=== PATIENT | female | born 1965 | race African-American/Black ===

== ENCOUNTER → 2016-12-18 | Outpatient (CLI) | payer BC ==
[~2016-12-18] MED LIST: ALBU18002 INH; ALBUAER INH; ALPR-411 PO; ASPI81TA28 PO; ASTN INH; ATOR-26 PO; CARV3.122 PO; CLOP1TAB15 PO; CLR10 PO; DOXY100C2 PO; FLNIN/ NAE; FLUT1INH7 INH; IPRASOL4 NEB; LPT/40 PO; MONT1TAB3 PO; NTRGSL/4 UT; PANT20TA PO; PLMINS NEB; PRED10TA PO; PRED20TA PO; PRED50TA PO; PROAIR INH; RANI150T2 PO; SPRIN/30 INH; SYMIN160 INH
[2016-12-18 10:33] LABS: MEAN CELL VOLUME 90.1 fL (80-100); MEAN CORPUSCULAR HEMOGLOBIN 29.3 pg (25-34); MEAN CORPUSCULAR HGB CONC 32.6 g/dl (32-36); MEAN PLATELET VOLUME 10.5 fL (7.4-10.4); PLATELET COUNT 268 K/uL (130-400); RED BLOOD COUNT 4.33 M/uL (4.2-5.4); WHITE BLOOD COUNT 4.81 K/uL (4.8-10.8)
[2016-12-18 10:40] LABS: ALT/SGPT 29 U/L (12-78); AST/SGOT 12 U/L (15-37); BLOOD UREA NITROGEN 16 mg/dl (7-18); BUN/CREATININE RATIO 15.6 (10-20); CALCIUM 8.9 mg/dl (8.5-10.1); CARBON DIOXIDE 32 mmol/L (21-32); CHLORIDE 107 mmol/L (98-107); GLUCOSE 82 mg/dl (70-99); POTASSIUM 3.7 mmol/L (3.5-5.1); SODIUM 145 mmol/L (136-145)
[2016-12-18 10:42] LABS: ALB/GLOB RATIO 1.3 (0.9-2); ALKALINE PHOSPHATASE 53 U/L (45-117)
== END | disposition home or self-care (01) ==
LOC: C.LAB1850 09:32
PROVIDERS: ATTEND Internal Medicine Cardiovascular Disease
DX: I25.10 Atherosclerotic heart disease of native coronary artery without angina pectoris (principal)

== ENCOUNTER 2016-12-26 03:33 | Emergency (ER) | payer BC ==
[~2016-12-26] VITALS: Ht 177.8 cm; Wt 85.5 kg
[~2016-12-26 03:33] MED LIST changes: -ALBU18002 INH; -ASPI81TA28 PO; -ASTN INH; -ATOR-26 PO; -CARV3.122 PO; -CLOP1TAB15 PO; -CLR10 PO; -DOXY100C2 PO; -FLNIN/ NAE; -IPRASOL4 NEB; -MONT1TAB3 PO; -NTRGSL/4 UT; -PANT20TA PO; -PLMINS NEB; -PRED10TA PO; -PRED20TA PO; -PRED50TA PO; -PROAIR INH; -RANI150T2 PO; -SPRIN/30 INH; -SYMIN160 INH
[2016-12-26 03:36] VITALS: TEMP 36.7; Ht 177.8 cm; Wt 85.5 kg
[2016-12-26] MEDS ORDERED: ALBUT/IPRATROP 3MG/0.5MG NEB 3 ML VIAL INH ONE (04:00)
[2016-12-26 04:04] VITALS: PULSE 104; O2SAT 94
[2016-12-26] MEDS ORDERED: PRED20TA PO (04:51)
[2016-12-26 05:17] VITALS: BP 120/90; PULSE 95; O2SAT 95
--- NOTE | 2016-12-26 06:02 | EMERGENCY ROOM VISIT NOTE ---
History First contact with patient: 03:42 Chief Complaint: RESPIRATORY PROBLEMS Stated Complaint: ASTHMA Nursing Triage Summary: Patient experiencing asthma exacerbation symptoms. SOB, dry NPC, wheezing & orthopnea. Followed home rescue plan with inhalers & nebulizer treatments with no relief. 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 History of Present Illness The patient is a 51 year old female who presents to the Emergency Room with complaints of worsening asthma exacerbation symptoms over the past one day. The patient has a long-standing history of asthma and has been using her inhalers as prescribed. She states that when she woke up in the morning she felt tightness in her chest. She used her home nebulizer, and was able to have relief of her breathing difficulties. She went to work, and throughout the day had to use her nebulizer several more times. She woke up tonight coughing, and her nebulizer did not provide significant relief, prompting her to come to the department for further management. The patient has not had fever or chills. The cough is not productive. She rates her discomfort a 7/10. Review of Systems More than 10 systems were reviewed and otherwise negative with the exception of history of present illness. 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 (7) Non-STEMI (non-ST elevated myocardial infarction) (8) Uterine Leiomyoma Nos Surgical Problems: (1) History of appendectomy (2) History of heart catheterization (3) History of hemicolectomy Family History Diabetes mellitus Heart disease Hypertension Social History Smoking Status: Never Smoker Alcohol Use: none Drug Use: none Marital Status: Housing Status: lives with family Occupation Status: employed Current/Historical Medications Scheduled Aspirin (Aspirin Ec), 81 MG PO DAILY Atorvastatin (Lipitor), 40 MG PO HS Carvedilol (Coreg), 3.125 MG PO BID Clopidogrel (Plavix), 75 MG PO DAILY Fluticasone Furoate-Vilanterol (Breo Ellipta 200-25 Mcg/INH), 1 PUFF INH DAILY Montelukast Sodium (Singulair), 10 MG PO QAM Prednisone (Prednisone), 0 PO DAILY Scheduled PRN Albuterol (Proventil Hfa), 2 PUFFS INH Q4H PRN for Shortness of Breath Alprazolam (Xanax), 0.5-1 MG PO DAILY PRN for Anxiety Ipratropium-Albuterol (Duoneb), 3 ML NEB QID PRN for Asthma Symptoms Nitroglycerin (Nitrostat), 0.4 MG UT UD PRN for Chest Pain Allergies Coded Allergies: No Known Allergies (Verified , 11/12/16) Physical Exam Vital Signs Date Time Temp Pulse Resp B/P Pulse Ox O2 Delivery O2 Flow Rate FiO2 12/26/16 05:17 95 20 120/90 95 Room Air 12/26/16 04:04 104 14 94 Room Air 12/26/16 04:00 Room Air 96 12/26/16 03:36 36.7 103 22 129/89 96 Room Air Pain Rating (0-10): 0 Physical Exam VITALS: Vitals are noted on the nurse's note and reviewed by myself. Vital signs stable. GENERAL: Well-developed, well-nourished, black female, who is in no acute distress and resting comfortably. Patient is cooperative with the examination. HEAD: Normocephalic atraumatic. HEART: Regular rate and rhythm without murmurs gallops or rubs. LUNGS: Clear to auscultation bilaterally without wheezes, rales or rhonchi. No retractions or accessory muscle use. ABDOMEN: Positive normal bowel sounds x 4. Soft, nontender, without masses or organomegaly. No guarding or rebound tenderness. MUSCULOSKELETAL: No muscle atrophy, erythema, or edema noted. Full range of motion without joint tenderness in all extremities. Medical Decision & Procedures Medications Administered Medications (Trade) Dose Ordered Sig/Donaldo Route Start Time Stop Time Status Last Admin Dose Admin Prednisone (PredniSONE TAB) 60 mg NOW STAT PO 12/26/16 03:49 12/26/16 03:51 DC 12/26/16 04:19 60 MG Albuterol/ Ipratropium (Duoneb) 6 ml NOW ONCE INH 12/26/16 04:00 12/26/16 04:01 DC 12/26/16 04:04 6 ML ED Course Physical exam and history were performed. Nursing notes and EMR were reviewed. Patient appears to have asthma exacerbation symptoms for the past one day. On exam she does not appear in significant distress, and does not have significant wheezing or rhonchi. Review of EMR shows that she has had several visits to the ER lifetime for asthma. Because of this I did give her oral prednisone as well as a 30 minute DuoNeb treatment. The patient was reevaluated several times here in the department. She had significant improvement of her breathing after steroids and the DuoNeb. I discussed further options of care with the patient, and she felt stable for discharge home. I will give her a tapering dose of prednisone. She was asked to follow with her primary care physician in the next few days for recheck of her condition. She was otherwise invited back to the ER anytime and was pleased with plan of care. The chart was completed utilizing [employer] Speech Voice Recognition Software. Grammatical errors, random word insertions, pronoun errors, and incomplete sentences are an occasional consequence of this system due to software limitations, ambient noise, and hardware issues. Any formal questions or concerns about the content, text, or information contained within the body of this dictation should be directly addressed to the provider for clarification. . Medical Decision Differential diagnosis: Etiologies such as infections, reactive airway disease, pneumonia, pneumothorax , COPD, CHF, cardiac ischemia, pulmonary embolism, musculoskeletal, gastrointestinal, as well as others were entertained. Impression Primary Impression: Acute asthma exacerbation Departure Information Dispostion Home / Self-Care Condition GOOD Prescriptions Prednisone (Prednisone) 20 Mg Tab 0 PO DAILY, #18 TAB 3 DAILY FOR 3 DAYS, THEN 2 DAILY FOR 3 DAYS, THEN 1 DAILY FOR 3 DAYS. Prov: Ramesh Vines PA-C 12/26/16 Referrals Uma Ocampo M.D. (PCP) Forms HOME CARE DOCUMENTATION FORM, IMPORTANT VISIT INFORMATION Patient Instructions My [facility] Additional Instructions You were seen and evaluated today on an emergency basis only. This is not a substitute for, or an effort to provide, complete comprehensive medical care. It is not possible to recognize and treat all injuries or illnesses in a single emergency department visit. For this reason it is recommended that you followup with your primary care physician in the next few days for recheck of your condition. Take prednisone as prescribed. You are welcome to return to the emergency department anytime with new, worsening, or concerning symptoms.
[2017-06-30] MEDS ORDERED: CLOP1TAB15 PO (11:44)
[2017-06-30] MEDS ORDERED: NTRGSL/4 UT (11:44)
[2017-06-30] MEDS ORDERED: CARV3.122 PO (11:44)
[2017-06-30] MEDS ORDERED: ASPI81TA28 PO (11:44)
[2017-06-30] MEDS ORDERED: MONT1TAB3 PO (15:47)
[2017-06-30] MEDS ORDERED: IPRASOL4 NEB (16:13)
== END 2016-12-26 05:19 | disposition home or self-care (01) ==
LOC: C.EDB 03:34 → C.EDA 05:19
DX: J45.901 Unspecified asthma with (acute) exacerbation (principal); I10 Essential (primary) hypertension; E78.5 Hyperlipidemia, unspecified; E03.9 Hypothyroidism, unspecified; I25.2 Old myocardial infarction; Z85.00 Personal history of malignant neoplasm of unspecified digestive organ; Z98.890 Other specified postprocedural states; Z79.82 Long term (current) use of aspirin; Z79.899 Other long term (current) drug therapy; Z83.3 Family history of diabetes mellitus; Z82.49 Family history of ischemic heart disease and other diseases of the circulatory system

== ENCOUNTER 2017-01-17 14:33 | Emergency (ER) | payer BC ==
[~2017-01-17] VITALS: Ht 177.8 cm; Wt 85.9 kg
[~2017-01-17 14:33] MED LIST changes: +PRED20TA PO
[2017-01-17 14:37] VITALS: TEMP 36.7; Ht 177.8 cm; Wt 85.9 kg
[2017-01-17] MEDS ORDERED: METHYLPREDNISOLONE 125 MG VIAL IV STA (14:50)
[2017-01-17] MEDS ORDERED: ALBUT/IPRATROP 3MG/0.5MG NEB 3 ML VIAL INH STA (14:50)
[2017-01-17] MEDS ORDERED: PROAIR INH (14:56)
[2017-01-17 15:13] LABS: BASO % 0.3 %; BASO ABS # 0.02 K/uL (0-0.2); COMPLETE YES; EOS % 9.4 %; HEMATOCRIT 38.9 % (37-47); IG% 0.2 %; LYMPH % 38.5 %; LYMPH ABS # 2.29 K/uL (1.2-3.4); MEAN CELL VOLUME 90.3 fL (80-100); MEAN CORPUSCULAR HEMOGLOBIN 29.9 pg (25-34); MEAN CORPUSCULAR HGB CONC 33.2 g/dl (32-36); MEAN PLATELET VOLUME 10.9 fL (7.4-10.4); MONO % 6.4 %; NEUT % 45.2 %; PLATELET COUNT 230 K/uL (130-400); RED BLOOD COUNT 4.31 M/uL (4.2-5.4); WHITE BLOOD COUNT 5.95 K/uL (4.8-10.8)
--- NOTE | 2017-01-17 15:28 | DIAGNOSTIC IMAGING REPORT ---
TWO VIEW CHEST CLINICAL HISTORY: Asthma. Dyspnea. FINDINGS: PA and lateral chest radiographs are compared to study dated 09/09/2016. The cardiomediastinal silhouette is unremarkable. The lungs and pleural spaces are clear. There is no pneumothorax. The bony thorax appears intact. IMPRESSION: No active disease in the chest. Electronically signed by: Celestino Ferrara M.D. 01/17/2017 3:27 PM Dictated Date/Time: 01/17/2017 3:26 PM
[2017-01-17 15:32] LABS: BLOOD UREA NITROGEN 15 mg/dl (7-18); BUN/CREATININE RATIO 11.7 (10-20); CALCIUM 8.7 mg/dl (8.5-10.1); CARBON DIOXIDE 27 mmol/L (21-32); CHLORIDE 112 mmol/L (98-107); GLUCOSE 88 mg/dl (70-99); POTASSIUM 3.3 mmol/L (3.5-5.1); SODIUM 148 mmol/L (136-145)
[2017-01-17] MEDS ORDERED: SODIUM CHLORIDE 0.9% 1000ML 1,000 ML IV STA (15:50)
[2017-01-17] MEDS ORDERED: PRED20TA PO (15:57)
[2017-01-17 17:07] VITALS: BP 138/95; PULSE 80; O2SAT 97
--- NOTE | 2017-01-17 17:30 | EMERGENCY ROOM VISIT NOTE ---
History Report prepared by Lucio: Alexa Bautista Under the Supervision of: Dr. Joo Bolivar M.D. First contact with patient: 14:44 Chief Complaint: RESPIRATORY PROBLEMS Stated Complaint: ASTHMA Nursing Triage Summary: pt reports having asthma attack started last night has gotten worse History of Present Illness The patient is a 51 year old female who presents to the Emergency Room with complaints of persistent shortness of breath that began last evening. She currently rates her discomfort as a 3/10 in severity. The patient states that she has a history of asthma. She states that last night she was up every two hours for another breathing treatment. The patient additionally associates chest tightness secondary to her persistent shortness of breath. She states that her symptoms are very similar to her previous asthma exacerbations and are not unusual. The patient states that her last nebulizer treatment was two hours ago. She denies any history of pulmonary embolism. The patient states that the change in the weather does not help her symptoms. She denies any recent illness, fever, cough, vomiting, diarrhea, or leg pain or swelling. Source of History: patient Onset: last evening Position: other (global) Symptom Intensity: 3/10 Quality: other (shortness of breath) Timing: other (persistent) Modifying Factors (Worsening): other (change in weather) Associated Symptoms: + chest pain (tightness), No cough, No diarrhea, No fevers, No vomiting Review of Systems See HPI for pertinent positives & negatives. A total of 10 systems reviewed and were otherwise negative. 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 (7) Non-STEMI (non-ST elevated myocardial infarction) (8) Uterine Leiomyoma Nos Surgical Problems: (1) History of appendectomy (2) History of heart catheterization (3) History of hemicolectomy Family History Diabetes mellitus Heart disease Hypertension Social History Smoking Status: Never Smoker Alcohol Use: none Drug Use: none Marital Status: Housing Status: lives with family Occupation Status: employed Current/Historical Medications Scheduled Aspirin (Aspirin Ec), 81 MG PO DAILY Atorvastatin (Lipitor), 40 MG PO HS Carvedilol (Coreg), 3.125 MG PO BID Clopidogrel (Plavix), 75 MG PO DAILY Fluticasone Furoate-Vilanterol (Breo Ellipta 200-25 Mcg/INH), 1 PUFF INH DAILY Montelukast Sodium (Singulair), 10 MG PO QAM Prednisone (Prednisone), 0 PO DAILY Prednisone (Prednisone), 3 TAB PO DAILY Scheduled PRN Alprazolam (Xanax), 0.5-1 MG PO DAILY PRN for Anxiety Ipratropium-Albuterol (Duoneb), 3 ML NEB QID PRN for Asthma Symptoms Nitroglycerin (Nitrostat), 0.4 MG UT UD PRN for Chest Pain [Proair], 2 PUFF INH Q4 PRN for SOB/Wheezing Allergies Coded Allergies: No Known Allergies (Verified , 01/17/17) Physical Exam Vital Signs Date Time Temp Pulse Resp B/P Pulse Ox O2 Delivery O2 Flow Rate FiO2 01/17/17 17:07 80 16 138/95 97 Room Air 01/17/17 15:44 81 01/17/17 14:37 36.7 96 20 138/87 96 Room Air Physical Exam Constitutional: Vital signs reviewed. Eyes: Pupils are equal round reactive to light. Conjunctiva are noninjected. ENT: Pharynx is clear without erythema or exudate. Mucous membranes are moist. Neck supple without meningeal signs. Respiratory: Scattered wheezing bilaterally. Breath sounds are equal bilaterally. Poor air entry bilaterally. Cardiovascular: Regular rate and rhythm. No rubs or gallops. GI: Soft, nondistended and nontender. Bowel sounds are present. Musculoskeletal: No peripheral edema. No lower extremity tenderness. Integumentary: No cyanosis. Neurological: The patient is awake and alert. No focal deficits. Psychiatric: Normal affect. Medical Decision & Procedures ER Provider Diagnostic Interpretation: X-ray results as stated below per interpretation by me and the radiologist: TWO VIEW CHEST CLINICAL HISTORY: Asthma. Dyspnea. FINDINGS: PA and lateral chest radiographs are compared to study dated 09/09/2016. The cardiomediastinal silhouette is unremarkable. The lungs and pleural spaces are clear. There is no pneumothorax. The bony thorax appears intact. IMPRESSION: No active disease in the chest. Electronically signed by: Celestino Ferrara M.D. 01/17/2017 3:27 PM Dictated Date/Time: 01/17/2017 3:26 PM Laboratory Results 01/17/17 15:00 Red Blood Count 4.31, Mean Corpuscular Volume 90.3, Mean Corpuscular Hemoglobin 29.9, Mean Corpuscular Hemoglobin Concent 33.2, Mean Platelet Volume 10.9, Neutrophils (%) (Auto) 45.2, Lymphocytes (%) (Auto) 38.5, Monocytes (%) (Auto) 6.4, Eosinophils (%) (Auto) 9.4, Basophils (%) (Auto) 0.3, Neutrophils # (Auto) 2.69, Lymphocytes # (Auto) 2.29, Monocytes # (Auto) 0.38, Eosinophils # (Auto) 0.56, Basophils # (Auto) 0.02 01/17/17 15:00 Test 01/17/17 15:00 White Blood Count 5.95 K/uL (4.8-10.8) Red Blood Count 4.31 M/uL (4.2-5.4) Hemoglobin 12.9 g/dL (12.0-16.0) Hematocrit 38.9 % (37-47) Mean Corpuscular Volume 90.3 fL (80-100) Mean Corpuscular Hemoglobin 29.9 pg (25-34) Mean Corpuscular Hemoglobin Concent 33.2 g/dl (32-36) Platelet Count 230 K/uL (130-400) Mean Platelet Volume 10.9 fL (7.4-10.4) Neutrophils (%) (Auto) 45.2 % Lymphocytes (%) (Auto) 38.5 % Monocytes (%) (Auto) 6.4 % Eosinophils (%) (Auto) 9.4 % Basophils (%) (Auto) 0.3 % Neutrophils # (Auto) 2.69 K/uL (1.4-6.5) Lymphocytes # (Auto) 2.29 K/uL (1.2-3.4) Monocytes # (Auto) 0.38 K/uL (0.11-0.59) Eosinophils # (Auto) 0.56 K/uL (0-0.5) Basophils # (Auto) 0.02 K/uL (0-0.2) RDW Standard Deviation 49.9 fL (36.4-46.3) RDW Coefficient of Variation 15.0 % (11.5-14.5) Immature Granulocyte % (Auto) 0.2 % Immature Granulocyte # (Auto) 0.01 K/uL (0.00-0.02) Anion Gap 9.0 mmol/L (3-11) Est Creatinine Clear Calc Drug Dose 59.6 ml/min Estimated GFR () 54.2 Estimated GFR (Non- 46.8 BUN/Creatinine Ratio 11.7 (10-20) Calcium Level 8.7 mg/dl (8.5-10.1) Troponin I < 0.015 ng/ml (0-0.045) Laboratory results as reviewed by me. Medications Administered Medications (Trade) Dose Ordered Sig/Donaldo Route Start Time Stop Time Status Last Admin Dose Admin Albuterol/ Ipratropium (Duoneb) 3 ml NOW STAT INH 01/17/17 14:50 01/17/17 14:51 DC 01/17/17 15:01 3 ML Methylprednisolone Sodium Succinate 125 mg 125 mg NOW STAT IV 01/17/17 14:50 01/17/17 14:51 DC 01/17/17 15:01 125 MG Sodium Chloride (Nss 1000ml) 1,000 ml @ 999 mls/hr Q1H1M STAT IV 01/17/17 15:50 01/17/17 16:50 DC 01/17/17 15:57 999 MLS/HR ECG Indication: SOB/dyspnea Rate (beats per minute): 83 Rhythm: normal sinus Findings: no acute ischemic change, no ectopy ED Course 1445: The patient was evaluated in room C1B. A complete history and physical exam was performed. 1450: Ordered Solu-Medrol IV 125 mg IV, Duoneb 3 ml INH. 1550: I reevaluated the patient and she is feeling much better. On exam the patient has some increased wheezing, but improved air entry. I offered another duoneb treatment, but she declined. I discussed all the exam findings and I discussed the treatment plan. She verbalized complete understanding and agreement. She is ready to go home once she receives her IV fluids. Ordered Sodium Chloride 1000 ml @ 999 mls/hr IV. 1652: I reevaluated the patient she received her IV fluids and states that she continues to feel better. She is ready to go to discharge. Medical Decision This is a 51-year-old female who presents with shortness of breath. Differential diagnosis includes acute asthma exacerbation, pneumonia, pulmonary embolism, cardiac, bronchitis. I did perform a limited focused review of portions of the patient's old chart on the electronic medical record. The patient was here December 26 for an asthma exacerbation and discharged on Prednisone. I did evaluate the patient as noted above. The patient is presenting with symptoms consistent with her prior asthma exacerbations. She does complain of chest tightness which is not unusual for her. She does have some scattered wheezing with fair to poor air entry bilaterally. IV access was established. I did order and personally review the patient's 12-lead EKG and chest x-ray as described above. I did order and review the patient's blood work as noted in the electronic medical record. She does have mild hypokalemia likely from the albuterol causing an intracellular shift. She also has signs of dehydration including an elevated creatinine and sodium. I did treat patient with Solu- Medrol IV and a DuoNeb. I did reassess the patient. She states she is feeling much better. Her air entry is significantly improved. She does have some mild increased wheezing likely from the improved air Entry. She did not wish to have another nebulizer. She stated she felt better. She was given IV normal saline and I discussed her test results with her. She was discharged in good condition. She was given a prescription for prednisone. Impression Primary Impression: Acute asthma exacerbation Additional Impression: Dehydration Scribe Attestation The scribe's documentation has been prepared under my direct and personally reviewed by me in its entirety. I confirm that the note above accurately reflects all work, treatment, procedures, and medical decision making performed by me. Departure Information Dispostion Home / Self-Care Prescriptions Prednisone (Prednisone) 20 Mg Tab 3 TAB PO DAILY, #12 TAB FOR 4 DAYS Prov: Joo Bolivar M.D. 01/17/17 Referrals Uma Ocampo M.D. (PCP) Forms HOME CARE DOCUMENTATION FORM, IMPORTANT VISIT INFORMATION, WORK / SCHOOL INSTRUCTIONS Patient Instructions Asthma - [facility], Dehydration, [facility] Additional Instructions You have been examined and treated today on an emergency basis only. This is not a substitute for, or an effort to provide, complete comprehensive medical care. It is impossible to recognize and treat all injuries or illnesses in a single emergency department visit. It is therefore important that you follow up closely with your physician. Call as soon as possible for an appointment. Return for worsening symptoms or if you develop fever, vomiting, or any other concerning symptoms. Problem Qualifiers Primary Impression: Acute asthma exacerbation Asthma severity: unspecified severity Qualified Codes: J45.901 - Unspecified asthma with (acute) exacerbation
[2017-06-30] MEDS ORDERED: CARV3.122 PO (11:44)
[2017-06-30] MEDS ORDERED: ASPI81TA28 PO (11:44)
[2017-06-30] MEDS ORDERED: CLOP1TAB15 PO (11:44)
[2017-06-30] MEDS ORDERED: NTRGSL/4 UT (11:44)
[2017-06-30] MEDS ORDERED: MONT1TAB3 PO (15:47)
[2017-06-30] MEDS ORDERED: IPRASOL4 NEB (16:13)
== END 2017-01-17 17:29 | disposition home or self-care (01) ==
LOC: C.EDB 14:34 → C.EDC 17:29
DX: J45.901 Unspecified asthma with (acute) exacerbation (principal); E78.5 Hyperlipidemia, unspecified; I10 Essential (primary) hypertension; E03.9 Hypothyroidism, unspecified; Z79.82 Long term (current) use of aspirin; Z79.02 Long term (current) use of antithrombotics/antiplatelets; Z79.899 Other long term (current) drug therapy; E86.0 Dehydration

== ENCOUNTER 2017-02-23 11:14 | Emergency (ER) | payer BC ==
[~2017-02-23] VITALS: Ht 177.8 cm; Wt 86.5 kg
[~2017-02-23 11:14] MED LIST changes: -ALBUAER INH; +PROAIR INH
[2017-02-23 11:18] VITALS: TEMP 36.7; Ht 177.8 cm; Wt 86.5 kg
[2017-02-23 11:28] VITALS: O2SAT 95
[2017-02-23] MEDS ORDERED: DEXAMETHASONE SOD INJ 10 MG/ML VIAL IM ONE (11:45)
[2017-02-23] MEDS ORDERED: ALBUT/IPRATROP 3MG/0.5MG NEB 3 ML VIAL INH ONE (11:45)
--- NOTE | 2017-02-23 12:06 | DIAGNOSTIC IMAGING REPORT ---
CHEST 2 VIEWS ROUTINE CLINICAL HISTORY: ASTHMA EXACERBATION COMPARISON STUDY: Chest radiograph January 17, 2017. FINDINGS: Lung volumes are normal. There is no pneumothorax or pleural effusion. Cardiac size is normal. Mediastinal contours are normal. There is no evidence of pulmonary edema. IMPRESSION: No acute cardiopulmonary findings. Electronically signed by: Jean Carlos Kirk M.D. 02/23/2017 12:04 PM Dictated Date/Time: 02/23/2017 12:03 PM
[2017-02-23 12:07] VITALS: PULSE 98; O2SAT 97
--- NOTE | 2017-02-23 13:25 | EMERGENCY ROOM VISIT NOTE ---
History First contact with patient: 11:33 Chief Complaint: RESPIRATORY PROBLEMS Stated Complaint: ASTHMA History of Present Illness The patient is a 51 year old female who presents to the Emergency Room with complaints of an asthma exacerbation. The patient reports that she has had frequent asthma exacerbations over the past 3-4 weeks. Her symptoms worsened yesterday morning. She has been administering home nebulizer treatments without relief. She is also currently on a prednisone taper, currently taking 30 mg daily. She follows with Magalie Bolton approximately every 2-3 weeks. She has had no recent change in medications. The patient is certain that this is an asthma exacerbation, and does not want any further cardiac workup. He denies any chest pain, fevers, cough, abdominal pain or back pain. The patient reports that she also had an appointment this morning with a integration director who is wondering if her symptoms could be secondary to GERD. She was provided a prescription for omeprazole to see if that also helps with her symptoms. Review of Systems 10 system review was performed and was negative except for pertinent positives and negatives as indicated in history of present illness 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 (7) Non-STEMI (non-ST elevated myocardial infarction) (8) Uterine Leiomyoma Nos Surgical Problems: (1) History of appendectomy (2) History of heart catheterization (3) History of hemicolectomy Family History Diabetes mellitus Heart disease Hypertension Social History Smoking Status: Never Smoker Alcohol Use: none Drug Use: none Marital Status: Housing Status: lives with family Occupation Status: employed Current/Historical Medications Scheduled Aspirin (Aspirin Ec), 81 MG PO DAILY Atorvastatin (Lipitor), 40 MG PO HS Carvedilol (Coreg), 3.125 MG PO BID Clopidogrel (Plavix), 75 MG PO DAILY Fluticasone Furoate-Vilanterol (Breo Ellipta 200-25 Mcg/INH), 1 PUFF INH DAILY Montelukast Sodium (Singulair), 10 MG PO QAM Prednisone (Prednisone), 0 PO DAILY Scheduled PRN Alprazolam (Xanax), 0.5-1 MG PO DAILY PRN for Anxiety Ipratropium-Albuterol (Duoneb), 3 ML NEB QID PRN for Asthma Symptoms Nitroglycerin (Nitrostat), 0.4 MG UT UD PRN for Chest Pain [Proair], 2 PUFF INH Q4 PRN for SOB/Wheezing Allergies Coded Allergies: No Known Allergies (Verified , 02/23/17) Physical Exam Vital Signs Date Time Temp Pulse Resp B/P Pulse Ox O2 Delivery O2 Flow Rate FiO2 02/23/17 12:17 95 02/23/17 12:10 93 22 100 Nebulizer 02/23/17 12:07 98 16 97 Room Air 02/23/17 11:28 95 Room Air 02/23/17 11:27 95 Room Air 02/23/17 11:18 36.7 110 20 164/101 96 Room Air Physical Exam CONSTITUTIONAL: Healthy and well nourished. Alert and oriented X 3 with positive affect. HEENT: Normocephalic, atraumatic. Pupils equal, round and reactive. Ears and nares are clear. OROPHARYNX: No tonsillar hypertrophy or exudates. No posterior pharyngeal erythema. LYMPHATICS: No cervical chain adenopathy. NECK: Full active range of motion without discomfort. No JVD or carotid bruits. RESPIRATORY: The patient has diffuse expiratory wheezing in all phelps. No crackles, rhonchi or stridor. Patient is able to speak in complete sentences, but does appear in mild respiratory distress. CARDIOVASCULAR: Regular rate and rhythm with no murmurs, rubs or gallops. GASTROINTESTINAL: Bowel sounds present in all quadrants. Soft and nontender to palpation. MUSCULOSKELETAL: Full range of motion of all joints without discomfort. INTEGUMENTARY: No rash or other significant dermatologic conditions noted. HEMATOLOGIC: No ecchymosis or petechiae. NEUROLOGIC: No focal neurologic deficits noted. Medical Decision & Procedures ER Provider Diagnostic Interpretation: My interpretation of a two-view chest x-ray does not show any consolidations, pneumothorax or cardiomegaly. Radiologist report is as follows: CHEST 2 VIEWS ROUTINE CLINICAL HISTORY: ASTHMA EXACERBATION COMPARISON STUDY: Chest radiograph January 17, 2017. FINDINGS: Lung volumes are normal. There is no pneumothorax or pleural effusion. Cardiac size is normal. Mediastinal contours are normal. There is no evidence of pulmonary edema. IMPRESSION: No acute cardiopulmonary findings. Medications Administered Medications (Trade) Dose Ordered Sig/Donaldo Route Start Time Stop Time Status Last Admin Dose Admin Albuterol/ Ipratropium (Duoneb) 12 ml ONE ONCE INH 02/23/17 11:45 02/23/17 11:46 DC 02/23/17 12:05 12 ML Dexamethasone Sodium Phosphate (Decadron Inj) 10 mg NOW ONCE IM 02/23/17 11:45 02/23/17 11:46 DC 02/23/17 12:23 10 MG Procedure The patient received an hour-long DuoNeb treatment ED Course Patient history and physical exam were performed. Nurse's notes were reviewed. Vital signs were reviewed, showing a blood pressure 164/101. Pulse rate is 110 in triage. On my exam, pulse rate was 96. O2 saturation is 96% on room air. The patient appears in mild respiratory distress. Her pretreatment peak flow was 90. The patient received an hour-long DuoNeb treatment with a posttreatment peak flow of 250. The patient reported almost complete resolution of her wheezing and respiratory difficulty. A two-view chest x-ray was also normal. The patient felt well enough and requested discharge. The patient was encouraged to continue with her current albuterol regimen, and follow up with her PCP and integration director for further management. She was encouraged to return to the emergency department for any worsening symptoms. The patient was happy with plan of care, and voiced understanding of all discharge instructions. Medical Decision See previous section. The patient is certain that her symptoms are secondary to asthma exacerbation. She denies any chest pain, and refused any cardiac workup. Her chest x-ray today is normal. She responded nicely to IM Decadron and an hour-long DuoNeb treatment. Other differentials considered included cardiac disease, pneumonia, pneumothorax, pulmonary emboli and bronchitis. Impression Primary Impression: Acute asthma exacerbation Departure Information Referrals No Doctor, Assigned (PCP) Patient Instructions My [facility] Problem Qualifiers Primary Impression: Acute asthma exacerbation Asthma severity: moderate persistent Qualified Codes: J45.41 - Moderate persistent asthma with (acute) exacerbation
[2017-02-23 13:27] VITALS: BP 135/88; PULSE 101; O2SAT 96
[2017-06-30] MEDS ORDERED: CLOP1TAB15 PO (11:44)
[2017-06-30] MEDS ORDERED: NTRGSL/4 UT (11:44)
[2017-06-30] MEDS ORDERED: ASPI81TA28 PO (11:44)
[2017-06-30] MEDS ORDERED: CARV3.122 PO (11:44)
[2017-06-30] MEDS ORDERED: MONT1TAB3 PO (15:47)
[2017-06-30] MEDS ORDERED: IPRASOL4 NEB (16:13)
[2017-06-30] MEDS ORDERED: PANT20TA2 PO (21:16)
[2017-09-13] MEDS ORDERED: MEPO1INJ INJ (21:36)
[2017-09-13] MEDS ORDERED: FLUC200T PO (21:51)
[2017-09-13] MEDS ORDERED: PRED50TA PO (23:41)
== END 2017-02-23 13:27 | disposition home or self-care (01) ==
LOC: C.EDB 11:18 → C.EDC 13:27
DX: J45.901 Unspecified asthma with (acute) exacerbation (principal); I10 Essential (primary) hypertension; E78.5 Hyperlipidemia, unspecified; E03.9 Hypothyroidism, unspecified; I25.2 Old myocardial infarction; Z85.89 Personal history of malignant neoplasm of other organs and systems; Z86.018 Personal history of other benign neoplasm; Z98.61 Coronary angioplasty status; Z98.890 Other specified postprocedural states; Z79.82 Long term (current) use of aspirin; Z79.899 Other long term (current) drug therapy; Z83.3 Family history of diabetes mellitus; Z82.49 Family history of ischemic heart disease and other diseases of the circulatory system

== ENCOUNTER 2017-03-28 23:01 | Emergency (ER) | payer BC ==
[~2017-03-28] VITALS: Ht 177.8 cm; Wt 86.0 kg
[2017-03-28 23:05] VITALS: Ht 177.8 cm; Wt 86.0 kg
[2017-03-28] MEDS ORDERED: DEXAMETHASONE SOD INJ 10 MG/ML VIAL PO ONE (23:15)
[2017-03-28] MEDS ORDERED: ALBUT/IPRATROP 3MG/0.5MG NEB 3 ML VIAL INH ONE (23:15)
[2017-03-28 23:35] VITALS: PULSE 104; O2SAT 95; O2SAT 98
[2017-03-28] MEDS ORDERED: ACETAMINOPHEN 500 MG TAB PO STA (23:35)
[2017-03-28] MEDS ORDERED: PRED10TA PO (23:52)
[2017-03-29 00:37] VITALS: TEMP 37.2
[2017-03-29] MEDS ORDERED: DOXY100C2 PO (01:27)
[2017-03-29 01:30] VITALS: BP 101/65; PULSE 120; O2SAT 93
[2017-03-29] MEDS ORDERED: DOXYCYCLINE HYCLATE 100 MG CAP PO ONE (01:30)
[2017-03-29] MEDS ORDERED: PRED50TA PO (01:37)
--- NOTE | 2017-03-29 02:04 | EMERGENCY ROOM VISIT NOTE ---
History First contact with patient: 23:04 Chief Complaint: RESPIRATORY PROBLEMS Stated Complaint: ASTHMA ATTACK, SOB Nursing Triage Summary: Pt complains of respiratory infection for a week. Today breathing is worse. Pt has history of asthma. Pt using inhalers and nebulizers without relief. History of Present Illness The patient is a 51 year old female who presents to the Emergency Room with complaints of cough, wheezing and fever. Patient tried her inhaler with no relief of symptoms. She's been on low-dose prednisone by her counter tacker. She had a flare last month. She was on Zithromax Last month. Patient denies chest pain, neck stiffness, sore throat, abdominal pain, leg pain or swelling. Review of Systems See HPI for pertinent positives & negatives. A total of 10 systems reviewed and were otherwise negative. 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 (7) Non-STEMI (non-ST elevated myocardial infarction) (8) Uterine Leiomyoma Nos Surgical Problems: (1) History of appendectomy (2) History of heart catheterization (3) History of hemicolectomy Family History Diabetes mellitus Heart disease Hypertension Social History Smoking Status: Never Smoker Alcohol Use: none Drug Use: none Marital Status: Housing Status: lives with family Occupation Status: employed Current/Historical Medications Scheduled Aspirin (Aspirin Ec), 81 MG PO DAILY Atorvastatin (Lipitor), 40 MG PO HS Carvedilol (Coreg), 3.125 MG PO BID Clopidogrel (Plavix), 75 MG PO DAILY Doxycycline Hyclate (Vibramycin), 100 MG PO BID Fluticasone Furoate-Vilanterol (Breo Ellipta 200-25 Mcg/INH), 1 PUFF INH DAILY Montelukast Sodium (Singulair), 10 MG PO QAM Prednisone (Prednisone), 50 MG PO DAILY Prednisone Tab (Prednisone), 10 MG PO DAILY Scheduled PRN Albuterol Sulfate (Proair Respiclick), 2 PUFFS INH Q4 PRN for SOB/Wheezing Alprazolam (Xanax), 0.5-1 MG PO DAILY PRN for Anxiety Ipratropium-Albuterol (Duoneb), 3 ML NEB QID PRN for Asthma Symptoms Nitroglycerin (Nitrostat), 0.4 MG UT PRN for Chest Pain Allergies Coded Allergies: No Known Allergies (Verified , 03/28/17) Physical Exam Vital Signs Date Time Temp Pulse Resp B/P Pulse Ox O2 Delivery O2 Flow Rate FiO2 03/29/17 01:30 120 20 101/65 93 Room Air 03/29/17 00:37 37.2 121 20 113/71 97 Nebulizer 03/28/17 23:35 98 Room Air 03/28/17 23:35 104 18 95 Room Air 03/28/17 23:32 98 Room Air 03/28/17 23:30 125 03/28/17 23:05 38.0 130 20 146/76 96 Room Air Pain Rating (0-10): 0 Physical Exam PHYSICAL EXAM: Vital Signs: Reviewed Nurse's notes. Oxygen saturation was 96% on room air. GENERAL: Pleasant female with a low-grade temperature, Alert, oriented and coherent. The patient is able to speak in complete sentences. NECK : Supple, non-tender. CHEST: Symmetrical expansion. no retractions no accessory muscle use. HEART: Tachycardic Regular rate and normal heart sounds, no murmur, gallop or rub. LUNGS: Breath sounds equal but significantly diminished in intensity on both sides. Bilateral wheezes heard but no rales or pleuritic rub. SKIN: The skin was without rashes, erythema, edema, or bruising. There is no tenting of the skin. Capillary reflex less than 2 seconds. HEAD: Normocephalic atraumatic. EARS: External auditory canals clear, tympanic membranes pearly randolph without erythema or effusion bilaterally. EYES: Pupils equal round and reactive to light and accommodation. Conjunctivae without injection, sclerae without icterus. Extraocular movements intact. NOSE: Patent, turbinates without inflammation or discharge. No sinus tenderness. MOUTH: Mucous membranes moist. Pharynx without erythema or exudate. Uvula midline. Airway patent. Tongue does not deviate. ABDOMEN: Positive bowel sounds x 4. Normal tympanic percussion. Soft, nontender, without masses or organomegaly. Ramirez sign negative. No guarding or rebound tenderness. MUSCULOSKELETAL: No muscle atrophy, erythema, or edema noted. NEURO: Patient was alert and oriented to person place and time. Normal sensation to light and sharp touch. No focal neurological deficits. Medical Decision & Procedures Medications Administered Medications (Trade) Dose Ordered Sig/Donaldo Route Start Time Stop Time Status Last Admin Dose Admin Albuterol/ Ipratropium (Duoneb) 12 ml ONE ONCE INH 03/28/17 23:15 03/28/17 23:16 DC 03/28/17 23:35 12 ML Dexamethasone Sodium Phosphate (Decadron Inj) 10 mg NOW ONCE PO 03/28/17 23:15 03/28/17 23:16 DC 03/28/17 23:26 10 MG Acetaminophen (Tylenol Tab) 1,000 mg NOW STAT PO 03/28/17 23:35 03/28/17 23:36 DC 03/28/17 23:46 1,000 MG Doxycycline Hyclate (Vibramycin Cap) 100 mg ONE ONCE PO 03/29/17 01:30 03/29/17 01:31 DC 03/29/17 01:33 100 MG ED Course Prior records/ancillary studies reviewed. Triage Nursing notes reviewed. The patient's history was concerning for respiratory difficulties. Differential diagnosis: Etiologies such as infections, reactive airway disease, pneumonia, pneumothorax , COPD, CHF, cardiac ischemia, pulmonary embolism, musculoskeletal, gastrointestinal, as well as others were entertained. Physical examination: As above. ER treatment provided: Nebulizer, steroids, doxycycline On reassessment the patient felt better. Diagnostic interpretation by me: Imaging studies: Chest x-ray with no acute consolidation, pneumothorax or free air per my interpretation This appears to be consistent with asthmatic bronchitis with exacerbation. Patient was on recent antibiotics. She is febrile and wheezing. I did opt to start her on doxycycline for possible developing pneumonia. Patient felt much better to be medicated as above. She is able to speak in full sentences. She was strongly encouraged to follow-up with counter tacker next week as she's had multiple flares this past few months. She is advised to return to the ER immediately for difficulty breathing, fevers, worsening signs or symptoms or as needed. By the evaluation outlined above emergent etiologies such as CHF, cardiac ischemia, pulmonary embolism, pneumothorax, musculoskeletal, serious bacterial infections, as well as others were deemed relatively unlikely. The pt informed about the findings as listed above. All questions were answered and pleased with the treatment. Return instructions were outlined and the patient was discharged in stable condition. Outpatient prescription management: Prednisone, doxycycline Referral: The patient was referred back to their primary care physician and pulmonology for follow-up in 2 to 3 days for a recheck of the current condition. Case reviewed with my attending Medical Decision As above Impression Primary Impression: Acute asthma exacerbation Additional Impressions: Fever Asthmatic bronchitis Departure Information Dispostion Home / Self-Care Condition GOOD Prescriptions Prednisone (Prednisone) 50 Mg Tab 50 MG PO DAILY for 4 Days, #4 TAB Prov: Mitali Drew .AMELIA 03/29/17 Doxycycline Hyclate (VIBRAMYCIN) 100 Mg Cap 100 MG PO BID, #14 CAP Prov: Mitali Drew .AMELIA 03/29/17 Forms WORK / SCHOOL INSTRUCTIONS, HOME CARE DOCUMENTATION FORM, IMPORTANT VISIT INFORMATION Patient Instructions Fever - [facility], Asthma - [facility], My [facility] Additional Instructions Albuterol Inhaler: Take 2 puffs four times daily for five days, then as needed. or nebulizer Prednisone 50mg: Once daily until the prescription is finished. It is best to take this earlier in the day as some patients note occasional difficulty falling asleep when taken in the late evening. Then resume your normal prednisone dosing. Doxycycline 100mg: Take one pill twice daily for seven days for your infection. Take with food, but avoid dairy. Avoid prolonged sun exposure since this medication makes you temporarily more susceptible to sunburns. All antibiotics can cause diarrhea. If this occurs and you feel worse or it does not resolve in 1-2 days follow up with your doctor or return to the Emergency Department as this could be signs of serious underlying problems. Any medication can cause an allergic reaction, stop the pills immediately and return to the ER for rash, hives, breathing difficulties, or swelling. Albuterol Inhaler: Take 2 puffs four times daily for seven days, then as needed. Acetaminophen(Tylenol) may be used for fever or pain. Use 1000mg every six hours as needed. Avoid using more than 3000mg in a 24 hour period. AND/OR Ibuprofen(Motrin, Advil) may be used for fever or pain. Use 600mg every six hours as needed. Take with food. Avoid using more than 2400mg in a 24 hour period. Do not use 2400mg per day for more than three consecutive days without physician direction. Prolonged inappropriate use can lead to stomach upset or ulcers. Controlling your fever with Tylenol and Ibuprofen as above will make you feel better. Rest and drink plenty of fluids. Avoid strenuous activity until your symptoms resolve and your breathing returns to normal. Continue current medications. Return to the ER for chest pain, difficulty breathing, persistent fevers, vomiting, worsening of your condition, or as needed. Follow-up with family care and counter tacker in 2-3 days. Problem Qualifiers Primary Impression: Acute asthma exacerbation Asthma severity: unspecified severity Qualified Codes: J45.901 - Unspecified asthma with (acute) exacerbation Additional Impressions: Fever Fever type: unspecified Qualified Codes: R50.9 - Fever, unspecified Asthmatic bronchitis Asthma severity: unspecified severity Asthma complication type: with acute exacerbation Qualified Codes: J45.901 - Unspecified asthma with (acute) exacerbation
--- NOTE | 2017-03-29 07:36 | DIAGNOSTIC IMAGING REPORT ---
CHEST 2 VIEWS ROUTINE CLINICAL HISTORY: Cough. Fever. COMPARISON STUDY: Chest radiograph February 23, 2017. FINDINGS: Lung volumes are normal. Lungs are clear. There is no pneumothorax or pleural effusion. Cardiac size is normal. Mediastinal contours are normal. There is no evidence of pulmonary edema. IMPRESSION: No acute cardiopulmonary findings. Electronically signed by: Jean Carlos Kirk M.D. 03/29/2017 7:34 AM Dictated Date/Time: 03/29/2017 7:34 AM
[2017-06-30] MEDS ORDERED: ASPI81TA28 PO (11:44)
[2017-06-30] MEDS ORDERED: NTRGSL/4 UT (11:44)
[2017-06-30] MEDS ORDERED: CARV3.122 PO (11:44)
[2017-06-30] MEDS ORDERED: CLOP1TAB15 PO (11:44)
[2017-06-30] MEDS ORDERED: MONT1TAB3 PO (15:47)
[2017-06-30] MEDS ORDERED: IPRASOL4 NEB (16:13)
[2017-06-30] MEDS ORDERED: PANT20TA2 PO (21:16)
[2017-09-13] MEDS ORDERED: MEPO1INJ INJ (21:36)
[2017-09-13] MEDS ORDERED: FLUC200T PO (21:51)
[2017-09-13] MEDS ORDERED: PRED50TA PO (23:41)
== END 2017-03-29 01:39 | disposition home or self-care (01) ==
LOC: C.EDB 23:03 → C.EDC 03-29 01:39
DX: J45.901 Unspecified asthma with (acute) exacerbation (principal); E78.5 Hyperlipidemia, unspecified; I10 Essential (primary) hypertension; E03.9 Hypothyroidism, unspecified; I25.2 Old myocardial infarction; Z86.018 Personal history of other benign neoplasm; Z85.89 Personal history of malignant neoplasm of other organs and systems; Z79.82 Long term (current) use of aspirin; Z79.899 Other long term (current) drug therapy; Z98.890 Other specified postprocedural states; Z83.3 Family history of diabetes mellitus; Z82.49 Family history of ischemic heart disease and other diseases of the circulatory system

== ENCOUNTER → 2017-05-05 | Outpatient (CLI) | payer BC ==
[~2017-05-05] MED LIST changes: +ALBU18002 INH; +ASPI81TA28 PO; +ASTN INH; +ATOR-26 PO; +CARV3.122 PO; +CLOP1TAB15 PO; +CLR10 PO; +DOXY100C2 PO; +FLNIN/ NAE; +FLUC200T PO; +IPRASOL4 NEB; +MEPO1INJ INJ; +MONT1TAB3 PO; +NTRGSL/4 UT; +PANT20TA2 PO; +PLMINS NEB; +PRED10TA PO; +PRED50TA PO; -PROAIR INH; +RANI150T2 PO; +SPRIN/30 INH; +SYMIN160 INH
--- NOTE | 2017-05-05 14:12 | DIAGNOSTIC IMAGING REPORT ---
VIDEO SWALLOW STUDY CLINICAL HISTORY: Dysphagia. COMPARISON STUDY: No priors. Fluoroscopy time: 1.9 minutes. FINDINGS: Fluoroscopic guidance was provided to the Department of Speech Pathology in performing a video swallow study. The patient consumed barium-impregnated pudding, cracker with paste, nectar liquid, and thin barium while the swallowing mechanism was observed in real-time. No penetration or aspiration was seen with any of the sampled textures. Mild esophageal dysmotility is suggested. IMPRESSION: No penetration or aspiration was identified with any of the sampled textures. See dedicated speech pathology report for detailed findings and recommendations. Dictated: 05/05/2017 1:44 PM Transcribed: 05/05/2017 2:11 PM [email or web address] Electronically signed by: Celestino Ferrara M.D. 05/05/2017 2:26 PM Dictated Date/Time: 05/05/2017 1:44 PM
--- NOTE | 2017-05-05 15:28 | SWALLOWING EVALUATION ---
HISTORY: This 51 year-old woman, was referred for a VFSS at [facility] in order to address the feeling of food getting caught in her throat. The patient has a PMH significant for HTN, hypothyroidism, and cough. Currently the patient's diet level is regular. Patient reported having painful swallows and waking up at night resulting from asthma. She has been given a prescription for reflux medication from her GI doctor for reflux that she was not taking at the time of the evaluation. PROCEDURE: The patient was seen in the Radiology Department of [facility] for the VFSS. Cursory examination of the oral cavity revealed adequate dentition. Movement of the articulators was WNL. The patient was seated on a stool and was viewed in both the Anterior-Posterior (A-P) and Lateral planes. Volitional phonation exercises completed in the A-P plane revealed bilateral vocal fold movement and vocal intensity within functional limits. In the lateral plane, the patient was given the following boluses: 1 tsp. thin liquid barium x 2, single swallow thin liquid barium self-presented from a cup, sequential swallows of thin liquid barium self-presented from a cup, 1 tsp. nectar-thick liquid barium, single swallow nectar-thick liquid barium self-presented from a cup, sequential swallows nectar-thick liquid barium self-presented from a cup, 1 tsp. barium pudding, and 1 club cracker with barium pudding. The patient was then repositioned into the A-P plane and given 1 tsp. barium pudding. RESULTS: Oral Stage: There was adequate labial closure. Tongue control of the bolus was normal. There was timely and efficient mastication and brisk tongue movement in transporting the bolus. There was complete oral clearance and a slightly delayed swallow with the bolus head at the level of the valleculae when swallow was initiated. There was no evidence of oral dysphagia. The delayed swallow was WFL for the patient's age. Pharyngeal Stage: Soft palate elevation was complete. Laryngeal elevation, anterior hyoid excursion, and epiglottic inversion were complete. There was no contrast in the laryngeal vestibule at the height of the swallow. Pharyngeal stripping wave and contraction were complete. There was complete distension and complete duration of the pharyngoesophageal segment opening. Tongue base retraction was complete and there was complete pharyngeal clearance of the bolus. Pharyngeal stage of swallow considered to be WNL. Esophageal Stage: There was minimal esophageal clearance of the bolus, indicating esophageal dismotility. SUMMARY/RECOMMENDATIONS: This patient presents with no oral-pharyngeal dysphagia, but presents with s/s esophageal dysfunction. The following is recommended: 1. Slippery regular diet: Choose foods that are loose, moist, and slippery. Avoid foods that are dry, pasty, doughy, and thick. Use condiments as necessary to make foods slippery. 2. GERD precautions: Patient should be seated completely upright during and for 30 minutes after meals. HOB should be elevated to 30 degrees at all times, even for sleep. Take small bites and sips, alternating solids with liquids. 3. If symptoms persist, it is recommended that the patient have a barium swallow study. A summary of the results and recommendations was discussed with patient and understanding was verbalized immediately following the study. Thank you for referral of this patient. Please contact me at if any additional information is needed. Maggie Sifuentes Swing Frame Grinder Operator Clinician MEHNAZ [facility]ERELLE/APPLICATION DESIGN ENGINEER-L
== END | disposition home or self-care (01) ==
LOC: C.RAD 12:45
PROVIDERS: ATTEND Physician Assistant
DX: R13.10 Dysphagia, unspecified (principal)

== ENCOUNTER 2017-06-30 20:15 | Emergency (ER) | payer BC ==
[~2017-06-30] VITALS: Ht 177.8 cm; Wt 89.4 kg
[~2017-06-30 20:15] MED LIST changes: -ALBU18002 INH; -ASTN INH; -ATOR-26 PO; -CLR10 PO; -FLNIN/ NAE; -FLUC200T PO; -MEPO1INJ INJ; -PANT20TA2 PO; -PLMINS NEB; -PRED20TA PO; -PRED50TA PO; -RANI150T2 PO; -SPRIN/30 INH; -SYMIN160 INH
[2017-06-30 20:22] VITALS: TEMP 36.6; Ht 177.8 cm; Wt 89.4 kg
[2017-06-30] MEDS ORDERED: METHYLPREDNISOLONE 125 MG VIAL IV STA (20:27)
[2017-06-30] MEDS ORDERED: ALBUT/IPRATROP 3MG/0.5MG NEB 3 ML VIAL INH STA (20:27)
--- NOTE | 2017-06-30 20:47 | DIAGNOSTIC IMAGING REPORT ---
CHEST ONE VIEW PORTABLE CLINICAL HISTORY: sob dyspnea COMPARISON STUDY: 03/29/2017 FINDINGS: The bones soft tissues and hemidiaphragms are normal. The cardiomediastinal silhouette is normal. The lungs are clear. The pulmonary vasculature is normal. IMPRESSION: Negative chest. The above report was generated using voice recognition software. It may contain grammatical, syntax or spelling errors. Electronically signed by: Jack Álvarez M.D. 06/30/2017 8:46 PM Dictated Date/Time: 06/30/2017 8:45 PM
[2017-06-30] MEDS ORDERED: PLMINS NEB (21:16)
[2017-06-30] MEDS ORDERED: CLR10 PO (21:16)
[2017-06-30] MEDS ORDERED: ASTN INH (21:16)
[2017-06-30] MEDS ORDERED: FLNIN/ NAE (21:16)
[2017-06-30] MEDS ORDERED: PANT20TA PO (21:16)
[2017-06-30] MEDS ORDERED: SPRIN/30 INH (21:16)
[2017-06-30] MEDS ORDERED: SYMIN160 INH (21:16)
[2017-06-30 21:22] LABS: BASO % 0.4 %; BASO ABS # 0.02 K/uL (0-0.2); COMPLETE YES; EOS % 12.2 %; HEMATOCRIT 40.9 % (37-47); IG% 0.2 %; LYMPH % 34.3 %; LYMPH ABS # 1.77 K/uL (1.2-3.4); MEAN CELL VOLUME 88.9 fL (80-100); MEAN CORPUSCULAR HEMOGLOBIN 29.8 pg (25-34); MEAN CORPUSCULAR HGB CONC 33.5 g/dl (32-36); MEAN PLATELET VOLUME 10.5 fL (7.4-10.4); MONO % 10.7 %; NEUT % 42.2 %; PLATELET COUNT 235 K/uL (130-400); WHITE BLOOD COUNT 5.16 K/uL (4.8-10.8)
[2017-06-30] MEDS ORDERED: ATOR-26 PO (21:24)
[2017-06-30 21:40] LABS: ALT/SGPT 27 U/L (12-78); BLOOD UREA NITROGEN 9 mg/dl (7-18); CALCIUM 9.2 mg/dl (8.5-10.1); CARBON DIOXIDE 30 mmol/L (21-32); CHLORIDE 108 mmol/L (98-107); CREATININE 0.85 mg/dl (0.60-1.20); GLUCOSE 73 mg/dl (70-99); PARTIAL THROMBOPLASTIN RATIO 1.1; POTASSIUM 3.2 mmol/L (3.5-5.1); PROTHROMBIN TIME (PATIENT) 10.4 SECONDS (9.0-12.0); SODIUM 143 mmol/L (136-145)
[2017-06-30 21:45] LABS: ALB/GLOB RATIO 1.2 (0.9-2); ALKALINE PHOSPHATASE 50 U/L (45-117); AST/SGOT 16 U/L (15-37); CKMB/CK RATIO 0.4 (0-3.0)
[2017-06-30] MEDS ORDERED: PRED20TA PO (22:15)
--- NOTE | 2017-06-30 22:15 | EMERGENCY ROOM VISIT NOTE ---
History Report prepared by Lucio: Graham Augustine Under the Supervision of: Dr. Cristiano Guadalupe D.O. First contact with patient: 20:27 Chief Complaint: RESPIRATORY PROBLEMS Stated Complaint: ASTHMA History of Present Illness The patient is a 51 year old female who presents to the Emergency Room with complaints of a constant asthma attack starting last night. The patient states that she has had these in the past, and she is using her nebulizer every 90 - 120 minutes, and that is helping. She states that she is not currently on steroids, though she states she often is on them. She denies any recent illnesses. Source of History: patient Onset: last night Position: other (global) Quality: other (asthma attack) Timing: constant Modifying Factors (Relieving): other (nebulizer) Review of Systems See HPI for pertinent positives & negatives. A total of 10 systems reviewed and were otherwise negative. 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 (7) Non-STEMI (non-ST elevated myocardial infarction) (8) Uterine Leiomyoma Nos Surgical Problems: (1) History of appendectomy (2) History of heart catheterization (3) History of hemicolectomy Family History Diabetes mellitus Heart disease Hypertension Social History Smoking Status: Never Smoker Alcohol Use: none Drug Use: none Marital Status: Housing Status: lives with family Occupation Status: employed Current/Historical Medications Scheduled Aspirin (Aspirin Ec), 81 MG PO DAILY Atorvastatin (Lipitor), 80 MG PO DAILY Azelastine Hcl (Astelin Nasal [place]), 2 SPRAYS INH BID Budesonide (Inhalation) (Pulmicort Respules 0.5MG/2ML), 0.5 MG NEB BID Budesonide/Formoterol Fumarate (Symbicort 160/4.5 Inhaler), 2 PUFF INH Q12 Carvedilol (Coreg), 3.125 MG PO BID Clopidogrel (Plavix), 75 MG PO DAILY Fluticasone Propionate (Fluticasone Propionate), 2 SPRAYS JETT DAILY Loratadine (Claritin), 10 MG PO DAILY Montelukast Sodium (Singulair), 10 MG PO QAM Pantoprazole Sodium (Protonix), 20 MG PO BID Tiotropium [place] (Spiriva Handihaler), 1 CAP INH DAILY Scheduled PRN Albuterol Sulfate (Proair Respiclick), 2 PUFFS INH Q4 PRN for SOB/Wheezing Ipratropium-Albuterol (Duoneb), 3 ML NEB QID PRN for Asthma Symptoms Nitroglycerin (Nitrostat), 0.4 MG UT UD PRN for Chest Pain Allergies Coded Allergies: No Known Allergies (Verified , 03/28/17) Physical Exam Vital Signs Date Time Temp Pulse Resp B/P (MAP) Pulse Ox O2 Delivery O2 Flow Rate FiO2 06/30/17 20:57 99 Room Air 06/30/17 20:47 84 06/30/17 20:22 36.6 93 20 163/98 95 Room Air Physical Exam CONSTITUTIONAL/VITAL SIGNS: Reviewed / noted above. GENERAL: Non-toxic in appearance. INTEGUMENTARY: Warm, dry, and [place]. HEAD: Normocephalic. EYES: without scleral icterus or trauma. ENT/OROPHARYNX: clear and moist. LYMPHADENOPATHY/NECK: Is supple without lymphadenopathy or meningismus. RESPIRATORY: Scattered wheezing bilaterally. CARDIOVASCULAR: Regular rate and rhythm. GI/ABDOMEN: Soft and nontender. No organomegaly or pulsatile mass. No rebound or guarding. Normal bowel sounds. EXTREMITIES: Warm and well perfused. BACK: No CVA tenderness. NEUROLOGICAL: Intact without focal deficits. PSYCHIATRIC: normal affect. MUSCULOSKELETAL: Normally developed with good muscle tone. Medical Decision & Procedures ER Provider Diagnostic Interpretation: X ray results and stated below per my interpretation and radiology interpretation. CHEST ONE VIEW PORTABLE CLINICAL HISTORY: sob dyspnea COMPARISON STUDY: 03/29/2017 FINDINGS: The bones soft tissues and hemidiaphragms are normal. The cardiomediastinal silhouette is normal. The lungs are clear. The pulmonary vasculature is normal. IMPRESSION: Negative chest. The above report was generated using voice recognition software. It may contain grammatical, syntax or spelling errors. Electronically signed by: Jack Álvarez M.D. 06/30/2017 8:46 PM Dictated Date/Time: 06/30/2017 8:45 PM Laboratory Results 06/30/17 21:13 Red Blood Count 4.60, Mean Corpuscular Volume 88.9, Mean Corpuscular Hemoglobin 29.8, Mean Corpuscular Hemoglobin Concent 33.5, Mean Platelet Volume 10.5, Neutrophils (%) (Auto) 42.2, Lymphocytes (%) (Auto) 34.3, Monocytes (%) (Auto) 10.7, Eosinophils (%) (Auto) 12.2, Basophils (%) (Auto) 0.4, Neutrophils # (Auto ) 2.18, Lymphocytes # (Auto) 1.77, Monocytes # (Auto) 0.55, Eosinophils # (Auto ) 0.63, Basophils # (Auto) 0.02 06/30/17 21:13 Test 06/30/17 21:13 White Blood Count 5.16 K/uL (4.8-10.8) Red Blood Count 4.60 M/uL (4.2-5.4) Hemoglobin 13.7 g/dL (12.0-16.0) Hematocrit 40.9 % (37-47) Mean Corpuscular Volume 88.9 fL (80-100) Mean Corpuscular Hemoglobin 29.8 pg (25-34) Mean Corpuscular Hemoglobin Concent 33.5 g/dl (32-36) Platelet Count 235 K/uL (130-400) Mean Platelet Volume 10.5 fL (7.4-10.4) Neutrophils (%) (Auto) 42.2 % Lymphocytes (%) (Auto) 34.3 % Monocytes (%) (Auto) 10.7 % Eosinophils (%) (Auto) 12.2 % Basophils (%) (Auto) 0.4 % Neutrophils # (Auto) 2.18 K/uL (1.4-6.5) Lymphocytes # (Auto) 1.77 K/uL (1.2-3.4) Monocytes # (Auto) 0.55 K/uL (0.11-0.59) Eosinophils # (Auto) 0.63 K/uL (0-0.5) Basophils # (Auto) 0.02 K/uL (0-0.2) RDW Standard Deviation 45.0 fL (36.4-46.3) RDW Coefficient of Variation 13.9 % (11.5-14.5) Immature Granulocyte % (Auto) 0.2 % Immature Granulocyte # (Auto) 0.01 K/uL (0.00-0.02) Prothrombin Time 10.4 SECONDS (9.0-12.0) Prothromb Time International Ratio 1.0 (0.9-1.1) Activated Partial Thromboplast Time 28.0 SECONDS (21.0-31.0) Partial Thromboplastin Ratio 1.1 Anion Gap 5.0 mmol/L (3-11) Est Creatinine Clear Calc Drug Dose 92.9 ml/min Estimated GFR () 90.7 Estimated GFR (Non- 78.2 BUN/Creatinine Ratio 10.0 (10-20) Calcium Level 9.2 mg/dl (8.5-10.1) Total Bilirubin 0.4 mg/dl (0.2-1) Aspartate Amino Transf (AST/SGOT) 16 U/L (15-37) Alanine Aminotransferase (ALT/SGPT) 27 U/L (12-78) Alkaline Phosphatase 50 U/L (45-117) Total Creatine Kinase 231 U/L (26-192) Creatine Kinase MB 1.0 ng/ml (0.5-3.6) Creatine Kinase MB Ratio 0.4 (0-3.0) Troponin I < 0.015 ng/ml (0-0.045) Total Protein 7.0 gm/dl (6.4-8.2) Albumin 3.8 gm/dl (3.4-5.0) Globulin 3.2 gm/dl (2.5-4.0) Albumin/Globulin Ratio 1.2 (0.9-2) Laboratory results as stated above per my review. Medications Administered Medications (Trade) Dose Ordered Sig/Donaldo Route Start Time Stop Time Status Last Admin Dose Admin Albuterol/ Ipratropium (Duoneb) 3 ml NOW STAT INH 06/30/17 20:27 06/30/17 20:30 DC 06/30/17 20:27 3 ML Methylprednisolone Sodium Succinate (Solu-Medrol IV) 125 mg NOW STAT IV 06/30/17 20:27 06/30/17 20:30 DC 06/30/17 20:52 125 MG ECG Indication: SOB/dyspnea, other (asthma attack) Rate (beats per minute): 84 Rhythm: normal sinus Findings: no ectopy, other (No injury) ED Course 2026: Previous medical records were reviewed. The patient was evaluated in room A10. A complete history and physical examination was performed. The patient was given Solu-Medrol 125mg IV and DuoNeb 3ml INH 2211: On reevaluation, the patient is she is feeling well. I discussed the results and findings with the patient. She verbalized agreement of the treatment plan. She was discharged home. Medical Decision the differential was considered includes acute myocardial infarction, acute coronary syndrome, myocarditis, pericarditis, pericardial effusions /tamponade, esophageal perforation, pulmonary embolism, pneumonia, pneumothorax, cardiomyopathy, congestive heart, anemia , COPD/asthma exacerbation. This is a 51-year-old female who presents to the ED with a chief complaint of asthma attack. The patient states that she has been using her nebulizers every couple of hours since last night when her symptoms started. She states that it does not seem to be helping. She has not been on steroids for a couple of weeks. She denies any other significant symptoms. No fevers or recent cough. No chest pains. Exam reveals scattered a story wheezing throughout. Her vital signs are stable. She is not hypoxic. Physical exam was otherwise unremarkable. Chest x-ray was negative for acute disease. Blood work was unremarkable. Troponin was negative. EKG shows a normal sinus rhythm. The patient was treated with a DuoNeb treatment as well as IV Solu-Medrol. On reassessment, her symptoms have improved substantially. She is resting comfortably. She was felt to be stable for discharge. Prescription for prednisone given. Medication Reconcilliation Current Medication List: was personally reviewed by me Blood Pressure Screening Patient's blood pressure: Elevated blood pressure Blood pressure disposition: Elevated BP felt to be situational Impression Primary Impression: Acute asthma exacerbation Scribe Attestation The scribe's documentation has been prepared under my direction and personally reviewed by me in its entirety. I confirm that the note above accurately reflects all work, treatment, procedures, and medical decision making performed by me. Departure Information Prescriptions Prednisone (Prednisone) 20 Mg Tab 2 TAB PO DAILY for 4 Days, #8 TAB Prov: Cristiano Guadalupe D.O. 06/30/17 Referrals Uma Ocampo M.D. (PCP) Patient Instructions My [facility] Additional Instructions Prednisone as prescribed. Continue home nebulizers. Follow-up with your doctor for further care and evaluation in 1-2 days. Return to the emergency department for worsening or new symptoms or any concerns. You have been examined and treated today on an emergency basis only. This is not a substitute for, or an effort to provide, complete comprehensive medical care. It is impossible to recognize and treat all injuries or illnesses in a single emergency department visit. It is therefore important that you follow up closely with your doctor. Call as soon as possible for an appointment.
[2017-06-30 22:24] VITALS: BP 142/103; PULSE 84; O2SAT 97
[2017-06-30] MEDS ORDERED: ALBU18002 INH (23:53)
== END 2017-06-30 22:25 | disposition home or self-care (01) ==
LOC: C.EDB 20:17 → C.EDA 22:25
DX: J45.901 Unspecified asthma with (acute) exacerbation (principal); I10 Essential (primary) hypertension; E78.5 Hyperlipidemia, unspecified; I25.2 Old myocardial infarction; Z85.030 Personal history of malignant carcinoid tumor of large intestine; Z90.49 Acquired absence of other specified parts of digestive tract; Z90.89 Acquired absence of other organs; Z98.890 Other specified postprocedural states; Z83.3 Family history of diabetes mellitus; Z82.49 Family history of ischemic heart disease and other diseases of the circulatory system; Z79.02 Long term (current) use of antithrombotics/antiplatelets; Z79.82 Long term (current) use of aspirin; Z79.899 Other long term (current) drug therapy

== ENCOUNTER → 2017-07-24 | Outpatient (CLI) | payer BC ==
[~2017-07-24] MED LIST changes: +ALBU18002 INH; -ALPR-411 PO; +ASTN INH; +ATOR-26 PO; +CLR10 PO; -DOXY100C2 PO; +FLNIN/ NAE; -FLUT1INH7 INH; -LPT/40 PO; +PANT20TA PO; +PLMINS NEB; +PRED20TA PO; +RANI150T2 PO; +SPRIN/30 INH; +SYMIN160 INH
[2017-07-24 12:12] LABS: HEMATOCRIT 40.9 % (37-47); MEAN CELL VOLUME 91.5 fL (80-100); MEAN CORPUSCULAR HEMOGLOBIN 28.9 pg (25-34); MEAN CORPUSCULAR HGB CONC 31.5 g/dl (32-36); PLATELET COUNT 242 K/uL (130-400); RED BLOOD COUNT 4.47 M/uL (4.2-5.4); WHITE BLOOD COUNT 6.48 K/uL (4.8-10.8)
[2017-07-24 12:33] LABS: ALT/SGPT 28 U/L (12-78); AST/SGOT 15 U/L (15-37); BLOOD UREA NITROGEN 12 mg/dl (7-18); BUN/CREATININE RATIO 12.3 (10-20); CALCIUM 8.9 mg/dl (8.5-10.1); CARBON DIOXIDE 32 mmol/L (21-32); CHLORIDE 105 mmol/L (98-107); CHOLESTEROL 141 mg/dl (0-200); GLUCOSE 89 mg/dl (70-99); SODIUM 144 mmol/L (136-145); TRIGLYCERIDES 38 mg/dl (0-150); VERY LOW DENSITY LIPOPROT CALC 8 mg/dl
[2017-07-24 12:35] LABS: CHOLESTEROL/HDL RATIO 1.7; HDL CHOLESTEROL 84 mg/dl; LDL CHOLESTEROL CALCULATED 49 mg/dl
== END | disposition home or self-care (01) ==
LOC: C.LAB1850 09:46
PROVIDERS: ATTEND Internal Medicine Cardiovascular Disease
DX: I10 Essential (primary) hypertension (principal); R07.89 Other chest pain; R00.0 Tachycardia, unspecified; I25.10 Atherosclerotic heart disease of native coronary artery without angina pectoris

== ENCOUNTER 2017-07-25 09:40 | Emergency (ER) | payer BC ==
[~2017-07-25] VITALS: Ht 177.8 cm; Wt 89.6 kg
[~2017-07-25 09:40] MED LIST changes: -PRED10TA PO; -PRED20TA PO; -RANI150T2 PO
[2017-07-25 09:47] VITALS: TEMP 36.6; Ht 177.8 cm; Wt 89.6 kg
[2017-07-25] MEDS ORDERED: METHYLPREDNISOLONE 125 MG VIAL IV STA (09:58)
[2017-07-25] MEDS ORDERED: ALBUT/IPRATROP 3MG/0.5MG NEB 3 ML VIAL INH ONE (10:00)
--- NOTE | 2017-07-25 10:07 | EMERGENCY ROOM VISIT NOTE ---
History Report prepared by Lucio: Lisa Mejia Under the Supervision of: Dr. Matilda Milan M.D. First contact with patient: 09:52 Chief Complaint: RESPIRATORY PROBLEMS Stated Complaint: ASTHMA Nursing Triage Summary: hx of asthma patient c/o difficulty breathing since last night. pt used nebulizer and inhalers at home with no relief. History of Present Illness The patient is a 51 year old female who presents to the Emergency Room with complaints of constant difficulty breathing starting last night. She notes some coughing, feeling like she is going to pass out, and chest tightness. The patient notes that her allergies have been worse than normal over the past couple days. She denies any fever. The patient was recently in [place]. She notes that her symptoms today are similar to the previous times she has been in the ED for asthma exacerbation. The patient has a history of MO and is on blood thinners. Source of History: patient Onset: last night Timing: constant Associated Symptoms: + cough, + chest pain (tightness) Note: Pt. notes feeling like she is going to pass out. Review of Systems See HPI for pertinent positives & negatives. A total of 10 systems reviewed and were otherwise negative. 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 (7) Non-STEMI (non-ST elevated myocardial infarction) (8) Uterine Leiomyoma Nos Surgical Problems: (1) History of appendectomy (2) History of heart catheterization (3) History of hemicolectomy Family History Diabetes mellitus Heart disease Hypertension Social History Smoking Status: Never Smoker Alcohol Use: none Drug Use: none Marital Status: Housing Status: lives with family Occupation Status: employed Current/Historical Medications Scheduled Aspirin (Aspirin Ec), 81 MG PO DAILY Atorvastatin (Lipitor), 80 MG PO DAILY Azelastine Hcl (Astelin Nasal [place]), 2 SPRAYS INH BID Budesonide (Inhalation) (Pulmicort Respules 0.5MG/2ML), 0.5 MG NEB BID Budesonide/Formoterol Fumarate (Symbicort 160/4.5 Inhaler), 2 PUFF INH Q12 Carvedilol (Coreg), 3.125 MG PO BID Clopidogrel (Plavix), 75 MG PO DAILY Fluticasone Propionate (Fluticasone Propionate), 2 SPRAYS JETT DAILY Loratadine (Claritin), 10 MG PO DAILY Montelukast Sodium (Singulair), 10 MG PO QAM Pantoprazole Sodium (Protonix), 20 MG PO BID Prednisone Tab (Prednisone), 10 MG PO DIRECTED Ranitidine HCl (Ranitidine HCl), 150 MG PO BID Tiotropium [place] (Spiriva Handihaler), 1 CAP INH DAILY Scheduled PRN Albuterol Sulfate (Proair Respiclick), 2 PUFFS INH Q4 PRN for SOB/Wheezing Ipratropium-Albuterol (Duoneb), 3 ML NEB QID PRN for Asthma Symptoms Nitroglycerin (Nitrostat), 0.4 MG UT UD PRN for Chest Pain Allergies Coded Allergies: No Known Allergies (Verified , 07/25/17) Physical Exam Vital Signs Date Time Temp Pulse Resp B/P (MAP) Pulse Ox O2 Delivery O2 Flow Rate FiO2 07/25/17 12:10 92 22 142/110 99 07/25/17 10:19 99 07/25/17 10:19 94 22 142/110 99 Nebulizer 07/25/17 10:13 96 24 93 Nasal Cannula 4.0 07/25/17 10:08 92 Nasal Cannula 4.0 07/25/17 10:08 88 07/25/17 09:51 93 Room Air 07/25/17 09:47 36.6 87 24 169/101 93 Room Air Physical Exam Vital signs reviewed. General: Well-appearing female, in some respiratory discomfort HEENT: No scleral icterus, PERRLA, neck supple. Atraumatic. Cardiovascular: Hypertensive. Regular rate and rhythm, no extra sounds. Pulmonary: Wheezing throughout in both lung phelps. Increased work of breathing. Abdomen: Soft, nontender, nondistended, positive bowel sounds. Musculoskeletal: Atraumatic, no peripheral edema. Neurologic: Patient awake alert and oriented x 3 Skin: Warm, dry, no rash Medical Decision & Procedures Medications Administered Medications (Trade) Dose Ordered Sig/Donaldo Route Start Time Stop Time Status Last Admin Dose Admin Albuterol/ Ipratropium (Duoneb) 12 ml ONE ONCE INH 07/25/17 10:00 07/25/17 10:01 DC 07/25/17 10:11 12 ML Methylprednisolone Sodium Succinate (Solu-Medrol IV) 125 mg NOW STAT IV 07/25/17 09:58 07/25/17 10:00 DC 07/25/17 10:11 125 MG ED Course 0957: Past medical records reviewed. The patient was evaluated in room B3. A complete history and physical examination was performed. 0958: Solu-Medrol IV 125 mg IV. 1000: Duoneb 12 ml INH. 1113: I reevaluated the patient. She is feeling better and is almost done with nebulizer. 0015: Upon reevaluation, the patient appeared to have improvement of her symptoms. I discussed findings with her. She verbalized agreement of the treatment plan. The patient was discharged home. Medical Decision Differential diagnosis: Etiologies such as infections, reactive airway disease, pneumonia, pneumothorax , COPD, CHF, cardiac ischemia, pulmonary embolism, musculoskeletal, gastrointestinal, as well as others were entertained. This patient was evaluated and appeared to be in no significant distress. IV access was obtained and laboratory work was drawn. The patient was placed in an hour-long DuoNeb treatment. Chest x-ray was avoided as the patient has no fever and feels this is an asthma flare. She has had multiple chest x-rays in the past. Patient was given 125 mg of IV Solu-Medrol. She was observed in the ER for over 2 hours. She felt her breathing had improved significantly. Her wheezing had diminished. Patient was given a prescription for prednisone taper. She will continue her albuterol nebulizers at home as prescribed by pulmonology. She will follow-up for reevaluation within the week and return to the ER for worsening of symptoms or any medical concerns. Medication Reconcilliation Current Medication List: was personally reviewed by me Blood Pressure Screening Patient's blood pressure: Elevated blood pressure Blood pressure disposition: Did not require urgent referral The patient did not take her blood pressure medication this morning. Impression Primary Impression: Asthma exacerbation Scribe Attestation The scribe's documentation has been prepared under my direction and personally reviewed by me in its entirety. I confirm that the note above accurately reflects all work, treatment, procedures, and medical decision making performed by me. Departure Information Dispostion Home / Self-Care Prescriptions Prednisone Tab (PREDNISONE) 10 Mg Tab 10 MG PO DIRECTED, #31 TAB 40 mg for 4 days, 30 mg for 3 days, 20 mg for 2 days, 10 mg for 2 days. Prov: Matilda Milan M.D. 07/25/17 Referrals No Doctor, Assigned (PCP) Forms HOME CARE DOCUMENTATION FORM, IMPORTANT VISIT INFORMATION, WORK / SCHOOL INSTRUCTIONS Patient Instructions My [facility] Additional Instructions Diagnosis: Asthma exacerbation Prednisone 40 mg daily for 4 more days, 30 mg for 3 days, 20 mg for 2 days, 10 mg for 2 days. Continue albuterol nebulizers every 4 hours as needed for shortness of breath. Follow-up with your physician this week for reevaluation. Return to the ER for worsening of symptoms or any medical concerns.
[2017-07-25 10:13] VITALS: PULSE 96; O2SAT 93
[2017-07-25 10:19] VITALS: O2SAT 99
[2017-07-25] MEDS ORDERED: RANI150T2 PO (10:43)
[2017-07-25 12:10] VITALS: BP 142/110; PULSE 92; O2SAT 99
[2017-07-25] MEDS ORDERED: PRED10TA PO (12:11)
== END 2017-07-25 12:10 | disposition home or self-care (01) ==
LOC: C.EDB 09:41
DX: J45.901 Unspecified asthma with (acute) exacerbation (principal); I25.2 Old myocardial infarction; E03.9 Hypothyroidism, unspecified; I10 Essential (primary) hypertension; E78.5 Hyperlipidemia, unspecified; Z83.3 Family history of diabetes mellitus; Z82.49 Family history of ischemic heart disease and other diseases of the circulatory system; Z79.82 Long term (current) use of aspirin; Z79.02 Long term (current) use of antithrombotics/antiplatelets; Z79.899 Other long term (current) drug therapy

== ENCOUNTER 2017-08-09 04:51 | Emergency (ER) | payer BC ==
[~2017-08-09] VITALS: Ht 177.8 cm; Wt 88.5 kg
[~2017-08-09 04:51] MED LIST changes: +PRED10TA PO; +RANI150T2 PO
[2017-08-09 04:55] VITALS: TEMP 36.7; Ht 177.8 cm; Wt 88.5 kg
[2017-08-09] MEDS ORDERED: ALBUT/IPRATROP 3MG/0.5MG NEB 3 ML VIAL INH STA (05:05)
[2017-08-09] MEDS ORDERED: PRED20TA PO (06:46)
--- NOTE | 2017-08-09 06:47 | EMERGENCY ROOM VISIT NOTE ---
History Report prepared by Lucio: Kelsey Daniels Under the Supervision of: Dr. Cristiano Guadalupe D.O. First contact with patient: 05:01 Chief Complaint: RESPIRATORY PROBLEMS Stated Complaint: ASTHMA ATTACK History of Present Illness The patient is a 51 year old female who presents to the Emergency Room with complaints of persistent asthma attack starting midday yesterday. The patient has a history of asthma. She started having symptoms around midday yesterday. She has SOB and cough which is "mucousy" at times. She has been using a nebulizer every 1.5 hours since noon yesterday. She has been to the ED before for asthma. She usually receives Solu-Medrol and a breathing treatment. Her last dose of steroids was 1 week ago. She notes that she got her shingle vaccine this week. She last saw her crate liner 3 weeks ago. Her gizzard skin remover is going to start a new shot soon to try to improve her asthma. Source of History: patient Onset: midday yesterday Position: other (global) Quality: other (asthma attack) Timing: other (persistent) Associated Symptoms: + cough, + SOB Review of Systems See HPI for pertinent positives & negatives. A total of 10 systems reviewed and were otherwise negative. 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 (7) Non-STEMI (non-ST elevated myocardial infarction) (8) Uterine Leiomyoma Nos Surgical Problems: (1) History of appendectomy (2) History of heart catheterization (3) History of hemicolectomy Family History Diabetes mellitus Heart disease Hypertension Social History Smoking Status: Never Smoker Alcohol Use: none Drug Use: none Marital Status: Housing Status: lives with family Occupation Status: employed Current/Historical Medications Scheduled Aspirin (Aspirin Ec), 81 MG PO DAILY Atorvastatin (Lipitor), 80 MG PO DAILY Azelastine Hcl (Astelin Nasal [place]), 2 SPRAYS INH BID Budesonide (Inhalation) (Pulmicort Respules 0.5MG/2ML), 0.5 MG NEB BID Budesonide/Formoterol Fumarate (Symbicort 160/4.5 Inhaler), 2 PUFF INH Q12 Carvedilol (Coreg), 3.125 MG PO BID Clopidogrel (Plavix), 75 MG PO DAILY Fluticasone Propionate (Fluticasone Propionate), 2 SPRAYS JETT DAILY Loratadine (Claritin), 10 MG PO DAILY Montelukast Sodium (Singulair), 10 MG PO QAM Pantoprazole Sodium (Protonix), 20 MG PO BID Prednisone (Prednisone), 2 TAB PO DAILY Ranitidine HCl (Ranitidine HCl), 150 MG PO BID Tiotropium [place] (Spiriva Handihaler), 1 CAP INH DAILY Scheduled PRN Albuterol Sulfate (Proair Respiclick), 2 PUFFS INH Q4 PRN for SOB/Wheezing Ipratropium-Albuterol (Duoneb), 3 ML NEB QID PRN for Asthma Symptoms Nitroglycerin (Nitrostat), 0.4 MG UT UD PRN for Chest Pain Allergies Coded Allergies: No Known Allergies (Verified , 08/09/17) Physical Exam Vital Signs Date Time Temp Pulse Resp B/P (MAP) Pulse Ox O2 Delivery O2 Flow Rate FiO2 08/09/17 06:48 88 20 131/91 98 Room Air 08/09/17 04:55 36.7 94 18 144/94 95 Room Air Physical Exam CONSTITUTIONAL/VITAL SIGNS: Reviewed / noted above. GENERAL: Non-toxic in appearance. INTEGUMENTARY: Warm, dry, and [place]. HEAD: Normocephalic. EYES: without scleral icterus or trauma. ENT/OROPHARYNX: clear and moist. LYMPHADENOPATHY/NECK: Is supple without lymphadenopathy or meningismus. RESPIRATORY: Expiratory wheezing. CARDIOVASCULAR: Regular rate and rhythm. GI/ABDOMEN: Soft and nontender. No organomegaly or pulsatile mass. No rebound or guarding. Normal bowel sounds. EXTREMITIES: Warm and well perfused. BACK: No CVA tenderness. NEUROLOGICAL: Intact without focal deficits. PSYCHIATRIC: normal affect. MUSCULOSKELETAL: Normally developed with good muscle tone. Medical Decision & Procedures Medications Administered Medications (Trade) Dose Ordered Sig/Donaldo Route Start Time Stop Time Status Last Admin Dose Admin Albuterol/ Ipratropium (Duoneb) 3 ml NOW STAT INH 08/09/17 05:05 08/09/17 05:06 DC 08/09/17 05:14 3 ML Prednisone (PredniSONE TAB) 60 mg NOW STAT PO 08/09/17 05:05 9/24/17 05:06 DC 08/09/17 05:14 60 MG ED Course 0503: Previous medical records were reviewed. The patient was evaluated in room A3. A complete history and physical examination was performed. 0505: Prednisone 60 mg PO, Duoneb 3 ml INH. 0651: On reevaluation, the patient is feeling better. I discussed the results and findings with the patient. She verbalized agreement of the treatment plan. She was discharged home. Medical Decision Differentials considered include acute myocardial infarction, acute coronary syndrome, myocarditis, pericarditis, pericardial effusions /tamponade, esophageal perforation, pulmonary embolism, pneumonia, pneumothorax, cardiomyopathy, congestive heart, anemia, and COPD/asthma exacerbation. This is a 51-year-old female who presents to the ED with a chief complaint of asthma exacerbation. The patient states that her symptoms started around midday yesterday. She reported a cough and shortness of breath. She states that she has been using her nebulizers every hour to 2 hours. The patient has a long-standing history of asthma issues. Her last course of steroids ended last week. The patient has no other symptoms. She denies any fevers or recent illness. No nausea vomiting. Her physical exam revealed some expiratory wheezing bilaterally. She is in no distress. Vital signs are stable on oxygen saturations are 95% on room air. The patient was treated with prednisone by mouth as well as a DuoNeb treatment. She was reassessed. She is felt to be stable for discharge. Course of prednisone prescribed. Medication Reconcilliation Current Medication List: was personally reviewed by me Blood Pressure Screening Patient's blood pressure: Elevated blood pressure Blood pressure disposition: Elevated BP felt to be situational Impression Primary Impression: Acute asthma exacerbation Scribe Attestation The scribe's documentation has been prepared under my direction and personally reviewed by me in its entirety. I confirm that the note above accurately reflects all work, treatment, procedures, and medical decision making performed by me. Departure Information Dispostion Home / Self-Care Prescriptions Prednisone (Prednisone) 20 Mg Tab 2 TAB PO DAILY for 4 Days, #8 TAB Prov: Cristiano Guadalupe D.O. 08/09/17 Referrals Uma Ocampo M.D. (PCP) Patient Instructions Asthma - [facility] Additional Instructions Follow-up with your doctor for further care and evaluation in 1-2 days. Return to the emergency department for worsening or new symptoms or any concerns. You have been examined and treated today on an emergency basis only. This is not a substitute for, or an effort to provide, complete comprehensive medical care. It is impossible to recognize and treat all injuries or illnesses in a single emergency department visit. It is therefore important that you follow up closely with your doctor. Call as soon as possible for an appointment. Prednisone as prescribed.
[2017-08-09 06:48] VITALS: BP 131/91; PULSE 88; O2SAT 98
== END 2017-08-09 06:58 | disposition home or self-care (01) ==
LOC: C.EDB 04:51 → C.EDA 06:58
DX: J45.901 Unspecified asthma with (acute) exacerbation (principal); E78.5 Hyperlipidemia, unspecified; I10 Essential (primary) hypertension; E03.9 Hypothyroidism, unspecified; Z85.00 Personal history of malignant neoplasm of unspecified digestive organ; I25.2 Old myocardial infarction; Z90.49 Acquired absence of other specified parts of digestive tract; Z83.3 Family history of diabetes mellitus; Z82.49 Family history of ischemic heart disease and other diseases of the circulatory system; Z79.82 Long term (current) use of aspirin; Z79.01 Long term (current) use of anticoagulants; Z79.899 Other long term (current) drug therapy

== ENCOUNTER → 2017-08-14 | Outpatient (CLI) | payer BC ==
[~2017-08-14] MED LIST changes: +GADAVIST IV PRN; -PRED10TA PO; +PRED20TA PO
--- NOTE | 2017-08-14 13:43 | DIAGNOSTIC IMAGING REPORT ---
BILATERAL CAROTID DOPPLER STUDY HISTORY: H93.A2 Pulsatile tinnitus of left ear [id number] COMPARISON: None. TECHNIQUE: Real-time, grayscale, and color Doppler sonography of the carotid arteries was performed. Imaging reviewed in the transverse and longitudinal planes. All measurements were calculated based on NASCET criteria. FINDINGS: Antegrade flow is seen in the bilateral vertebral arteries. The brachial pressures are hemodynamically similar. No significant calcified plaque within the carotid arteries. The peak systolic velocity within the right ICA is 89 cm/s.. The right systolic ratio is 1.2. The peak systolic velocity within the left ICA is 87 cm/s. The left systolic ratio is 1. IMPRESSION: No hemodynamically significant stenosis seen within the carotid arteries. Electronically signed by: Mookie Park M.D. 08/14/2017 1:41 PM Dictated Date/Time: 08/14/2017 1:40 PM
--- NOTE | 2017-08-14 14:26 | DIAGNOSTIC IMAGING REPORT ---
MRA HEAD WITHOUT CONTRAST CLINICAL HISTORY: 51 years-old Female presenting with balance issues, pulsatile tinnitus in the left ear for 2 months. TECHNIQUE: MR angiography of the head was performed without the use of intravenous contrast using 3-D [id number] technique. 3-D volumetric and/or maximum intensity projection (MIP) images were subsequently reconstructed for review. IV contrast: None.. COMPARISON: None. FINDINGS: Anterior circulation demonstrates patent intracranial portions of the internal carotid arteries. The bilateral ICAs are normal in their course and caliber. Bilateral middle cerebral and anterior cerebral arteries patent. Anterior commuting artery patent. Posterior circulation demonstrates codominant vertebral arteries which contribute to the basilar artery. Bilateral superior cerebellar and posterior cerebral arteries patent. Aplastic or hypoplastic right posterior communicating artery. Left posterior communicating artery patent. No significant stenosis, aneurysm, or focal vessel occlusion. Limited evaluation of the branch vessels of the external carotid arteries are normal appearing. The dural venous sinuses and cortical veins are not evaluated on this noncontrast study. IMPRESSION: 1. No significant stenosis, aneurysm, or focal vessel occlusion. Electronically signed by: Juanpablo Alexandre M.D. 08/14/2017 2:25 PM Dictated Date/Time: 08/14/2017 2:18 PM
--- NOTE | 2017-08-14 14:48 | DIAGNOSTIC IMAGING REPORT ---
BRAIN COMBO FOR IAC CLINICAL HISTORY: 51 years-old Female presenting with H93.A2 Pulsatile tinnitus of left ear for 2 months, balance issues. TECHNIQUE: Multisequence, multiplanar MR imaging of the brain was performed before and after the administration of intravenous contrast. IV contrast: 8 mL of Gadavist. COMPARISON: None. FINDINGS: Internal auditory canals normal. Cochlea and semicircular canals normal in signal intensity and morphology. No fluid in the mastoid air cells. No mass lesion. Ventricles and sulci normal in size. Brain parenchyma normal in appearance with preserved randolph-white differentiation. No mass effect or midline shift. No restricted diffusion to suggest acute ischemia. No hemorrhage. No extra-axial fluid collection. T2 skull base flow voids preserved. No abnormal parenchymal enhancement. Bone marrow signal intensity within the calvarium within normal limits. IMPRESSION: 1. No acute intracranial pathology. No abnormal enhancement. 2. Normal MR appearance of the internal auditory canals and inner ears structures. If there is continuing clinical concern, temporal bone CT may be useful. Electronically signed by: Juanpablo Alexandre M.D. 08/14/2017 2:46 PM Dictated Date/Time: 08/14/2017 2:38 PM
== END | disposition home or self-care (01) ==
LOC: C.ULTR 12:47
PROVIDERS: ATTEND Physician Assistant
DX: H93.A2 Pulsatile tinnitus, left ear (principal)

== ENCOUNTER 2017-08-26 01:08 | Emergency (ER) | payer BC ==
[~2017-08-26] VITALS: Ht 177.8 cm; Wt 89.0 kg
[~2017-08-26 01:08] MED LIST changes: -GADAVIST IV PRN; -PRED20TA PO
[2017-08-26 01:12] VITALS: TEMP 36.9; Ht 177.8 cm; Wt 89.0 kg
[2017-08-26] MEDS ORDERED: METHYLPREDNISOLONE 125 MG VIAL IV STA (01:32)
[2017-08-26] MEDS ORDERED: ALBUT/IPRATROP 3MG/0.5MG NEB 3 ML VIAL INH ONE (01:45)
[2017-08-26 01:52] VITALS: PULSE 93; O2SAT 96
[2017-08-26 02:53] VITALS: BP 127/75; PULSE 85; O2SAT 100
--- NOTE | 2017-08-26 07:06 | EMERGENCY ROOM VISIT NOTE ---
History First contact with patient: :15 Chief Complaint: RESPIRATORY PROBLEMS Stated Complaint: ASTHMA ATTACK Nursing Triage Summary: Pt complains of asthma attack. It started yesterday. Pt using nebulizer with no relief. History of Present Illness The patient is a 51 year old female who presents to the Emergency Room with complaints of asthma exacerbation that began yesterday. The patient has a history of moderate to severe asthma. She has been seen several times previously in this department with exacerbations. Evidently she did have an appointment earlier in the afternoon, roughly 8 hours ago, with her chemist instrumentation and was started on prednisone. The patient continues to have worsening symptoms. She has difficulty speaking in complete sentences because of her asthma. She has been using her albuterol nebulizer hourly without significant improvement of symptoms. She does not report recent fever or chills. She does not have other complaints. Review of Systems More than 10 systems were reviewed and otherwise negative with the exception of history of present illness. 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 (7) Non-STEMI (non-ST elevated myocardial infarction) (8) Uterine Leiomyoma Nos Surgical Problems: (1) History of appendectomy (2) History of heart catheterization (3) History of hemicolectomy Family History Diabetes mellitus Heart disease Hypertension Social History Smoking Status: Never Smoker Alcohol Use: none Drug Use: none Marital Status: Housing Status: lives with family Occupation Status: employed Current/Historical Medications Scheduled Aspirin (Aspirin Ec), 81 MG PO DAILY Atorvastatin (Lipitor), 80 MG PO DAILY Budesonide (Inhalation) (Pulmicort Respules 0.5MG/2ML), 0.5 MG NEB BID Budesonide/Formoterol Fumarate (Symbicort 160/4.5 Inhaler), 2 PUFF INH Q12 Carvedilol (Coreg), 3.125 MG PO BID Clopidogrel (Plavix), 75 MG PO DAILY Fluticasone Propionate (Fluticasone Propionate), 2 SPRAYS JETT DAILY Loratadine (Claritin), 10 MG PO DAILY Montelukast Sodium (Singulair), 10 MG PO QAM Pantoprazole Sodium (Protonix), 20 MG PO BID Ranitidine HCl (Ranitidine HCl), 150 MG PO BID Tiotropium [place] (Spiriva Handihaler), 1 CAP INH DAILY Scheduled PRN Albuterol Sulfate (Proair Respiclick), 2 PUFFS INH Q4 PRN for SOB/Wheezing Ipratropium-Albuterol (Duoneb), 3 ML NEB QID PRN for Asthma Symptoms Nitroglycerin (Nitrostat), 0.4 MG UT UD PRN for Chest Pain Physical Exam Vital Signs Date Time Temp Pulse Resp B/P (MAP) Pulse Ox O2 Delivery O2 Flow Rate FiO2 08/26/17 02:53 85 18 127/75 100 Nebulizer 15.0 08/26/17 02:49 Room Air 08/26/17 01:52 93 14 96 Room Air 08/26/17 01:12 36.9 106 20 153/88 95 Room Air Physical Exam VITALS: Vitals are noted on the nurse's note and reviewed by myself. Vital signs stable. GENERAL: Well-developed, well-nourished, black female, who is in moderate discomfort. She is audibly wheezing upon my entrance to the room. HEART: Regular rate and rhythm without murmurs gallops or rubs. LUNGS: Diffuse wheezing and rhonchi throughout ABDOMEN: Positive normal bowel sounds x 4. Soft, nontender, without masses or organomegaly. No guarding or rebound tenderness. MUSCULOSKELETAL: No muscle atrophy, erythema, or edema noted. Full range of motion without joint tenderness in all extremities. Medical Decision & Procedures Medications Administered Medications (Trade) Dose Ordered Sig/Donaldo Route Start Time Stop Time Status Last Admin Dose Admin Methylprednisolone Sodium Succinate (Solu-Medrol IV) 125 mg NOW STAT IV 08/26/17 01:32 08/26/17 01:34 DC 08/26/17 01:32 125 MG Albuterol/ Ipratropium (Duoneb) 12 ml NOW ONCE INH 08/26/17 01:45 08/26/17 01:46 DC 08/26/17 01:49 12 ML ED Course Physical exam and history were performed. Nursing notes, EMR, and Medication List were personally reviewed. Patient appears to have asthma exacerbation symptoms. The patient is audibly wheezing on examination. She was given 125 mg IV Solu-Medrol and a one-hour DuoNeb. The patient was reevaluated multiple times with course of her stay. She had significant improvement of her symptoms after this intervention. She does have a prescription of prednisone to continue using. The patient feels comfortable with discharge home. She is to follow with her chemist instrumentation and was otherwise invited back to the ER with any new, worsening, or concerning symptoms. The chart was completed utilizing [employer] Speech Voice Recognition Software. Grammatical errors, random word insertions, pronoun errors, and incomplete sentences are an occasional consequence of this system due to software limitations, ambient noise, and hardware issues. Any formal questions or concerns about the content, text, or information contained within the body of this dictation should be directly addressed to the provider for clarification. . Medical Decision Differential diagnosis: Etiologies such as infections, reactive airway disease, pneumonia, pneumothorax , COPD, CHF, cardiac ischemia, pulmonary embolism, musculoskeletal, gastrointestinal, as well as others were entertained. Medication Reconcilliation Current Medication List: was personally reviewed by me Blood Pressure Screening Patient's blood pressure: Normal blood pressure Impression Primary Impression: Acute asthma exacerbation Departure Information Dispostion Home / Self-Care Condition GOOD Referrals Uma Ocampo M.D. (PCP) Forms HOME CARE DOCUMENTATION FORM, IMPORTANT VISIT INFORMATION Patient Instructions My [facility] Additional Instructions You were seen and evaluated today on an emergency basis only. This is not a substitute for, or an effort to provide, complete comprehensive medical care. It is not possible to recognize and treat all injuries or illnesses in a single emergency department visit. For this reason it is recommended that you followup with your primary care physician/chemist instrumentation for ongoing care and evaluation. Continue steroids as previously prescribed. You are welcome to return to the emergency department anytime with new, worsening, or concerning symptoms.
== END 2017-08-26 03:25 | disposition home or self-care (01) ==
LOC: C.EDB 01:09
DX: J45.901 Unspecified asthma with (acute) exacerbation (principal); I10 Essential (primary) hypertension; E78.5 Hyperlipidemia, unspecified; I25.2 Old myocardial infarction; Z85.030 Personal history of malignant carcinoid tumor of large intestine; Z90.49 Acquired absence of other specified parts of digestive tract; Z90.89 Acquired absence of other organs; Z98.890 Other specified postprocedural states; Z83.3 Family history of diabetes mellitus; Z82.49 Family history of ischemic heart disease and other diseases of the circulatory system; Z79.02 Long term (current) use of antithrombotics/antiplatelets; Z79.82 Long term (current) use of aspirin; Z79.899 Other long term (current) drug therapy

== ENCOUNTER 2017-10-29 20:23 | Emergency (ER) | payer BC ==
[~2017-10-29] VITALS: Ht 177.8 cm; Wt 89.9 kg
[~2017-10-29 20:23] MED LIST changes: -ASTN INH; -ATOR-26 PO; -CLR10 PO; -FLNIN/ NAE; +FLUC200T PO; +MEPO1INJ INJ; -PANT20TA PO
[2017-10-29 20:24] VITALS: TEMP 37.3; Ht 177.8 cm; Wt 89.9 kg
[2017-10-29] MEDS ORDERED: METHYLPREDNISOLONE 125 MG VIAL IV STA (20:35)
[2017-10-29] MEDS ORDERED: LEVALBUTEROL 1.25MG/0.5ML NEB INH ONE (20:45)
[2017-10-29] MEDS ORDERED: IPRATROPIUM BROMIDE NEB SOLN 0.02% 2.5 ML VIAL INH ONE (20:45)
--- NOTE | 2017-10-29 20:45 | EMERGENCY ROOM VISIT NOTE ---
History Report prepared by Lucio: Rylee Fraire Under the Supervision of: Dr. Alex Herrmann M.D. 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 She states that she almost passed out twice from coughing so much. She notes headaches, coughs, fevers, and chest pain. She currently rates her pain a 9/10 in severity. She utilizes a nebulizer every two hours. She is not currently taking any prednisone. She utilizes a peak flow meter and normally blows "in the 200s on a good day." She notes that she has been keeping up with her fluids. She denies any chills, sore throat, nausea, vomiting, and diarrhea. She has a history of asthma. She has had a similar episode of shortness of breath in the past, which she attributes to her asthma. She has received her flu shot and denies any adverse reactions. 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 A total of 10 systems reviewed and were otherwise negative. 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 Nurse's notes were reviewed and I agree with. Family History Diabetes mellitus Heart disease Hypertension Social History Smoking Status: Never Smoker Alcohol Use: none Drug Use: none Marital Status: Housing Status: lives with family Occupation Status: employed Current/Historical Medications Scheduled Amoxicillin & Pot Clavulanate (Augmentin 875-125 mg), 875 MG PO BID Aspirin (Aspirin Ec), 81 MG PO DAILY Atorvastatin (Lipitor), 80 MG PO HS Benzonatate (Benzonatate), 100 MG PO TID Budesonide/Formoterol Fumarate (Symbicort 160/4.5 Inhaler ), 2 PUFFS INH BID Clopidogrel (Plavix), 75 MG PO DAILY Diltiazem Hcl Coated Beads (Diltiazem Hcl Er), 120 MG PO DAILY Epinephrine (Epipen 2-Serjio), 0.3 MG INJ UD Fluticasone Propionate (Fluticasone Propionate), 2 SPRAYS JETT DAILY Loratadine (Claritin), 10 MG PO DAILY Mepolizumab (Nucala), 1 DOSE INJ MONTHLY Montelukast Sodium (Singulair), 10 MG PO QAM Pantoprazole Sodium (Protonix), 20 MG PO BID Prednisone (Prednisone), 50 MG PO DAILY Ranitidine HCl (Ranitidine HCl), 150 MG PO BID Tiotropium [place] (Spiriva Respimat), 2 PUFF INH DAILY Scheduled PRN Cromolyn Sodium (Cromolyn Sodium), 1 UNIT INFIL QID PRN for Shortness of Breath Ipratropium-Albuterol (Duoneb), 3 ML NEB QID PRN for Asthma Symptoms Nitroglycerin (Nitrostat), 0.4 MG UT UD PRN for Chest Pain Allergies Coded Allergies: No Known Allergies (Verified , 09/13/17) Physical Exam Vital Signs Date Time Temp Pulse Resp B/P (MAP) Pulse Ox O2 Delivery O2 Flow Rate FiO2 10/29/17 22:04 129 20 152/97 94 Room Air 10/29/17 21:38 134 18 95 Room Air 10/29/17 20:55 139 10/29/17 20:48 95 Room Air 10/29/17 20:24 37.3 143 20 164/129 99 Room Air Physical Exam General: Mildly-ill appearing middle-aged female in no acute distress. Mildly tachypneic, though answerers questions normally. Occasional dry coughs. HEENT: Normal cephalic atraumatic. Pupils are equal round and reactive to light. Extraocular movements are intact. Oropharynx is pink with moist mucous membranes. No swelling of the mouth lips or tongue. Neck: Supple with a midline trachea. No meningeal signs or stiffness, no JVD or bruits. No Stridor. Chest: Wheezes, though good air movement. Mild increased work of breathing. Heart: regular rate and rhythm. Abdomen: Soft nontender, nondistended without rebound guarding or rigidity. Extremities: No cyanosis clubbing or edema. No calf tenderness or assymetry Spine/Back. Non tender to palpation. No CVA tenderness Skin: Good turgor without rashes. Neurologic exam: Cranial nerves two through 12 are intact. Motor and sensation are intact and symmetrical throughout. Medical Decision & Procedures ER Provider Diagnostic Interpretation: Radiology results as stated below per my review and radiologist interpretation: CHEST ONE VIEW PORTABLE HISTORY: Atypical CHEST PAIN COMPARISON: Chest 09/13/2017. FINDINGS: Hazy appearance the right lung base. The heart is normal in size. Left lung is clear. No pleural effusions. No pneumothorax. IMPRESSION: Hazy appearance to the right lung base which may represent atelectasis or developing pneumonia. Electronically signed by: Mookie Park M.D. 10/29/2017 9:03 PM Dictated Date/Time: 10/29/2017 9:02 PM Laboratory Results 10/29/17 20:45 Red Blood Count 4.70, Mean Corpuscular Volume 90.4, Mean Corpuscular Hemoglobin 29.8, Mean Corpuscular Hemoglobin Concent 32.9, Mean Platelet Volume 10.6, Neutrophils (%) (Auto) 84.8, Lymphocytes (%) (Auto) 7.8, Monocytes (%) (Auto) 6.9, Eosinophils (%) (Auto) 0.1, Basophils (%) (Auto) 0.1, Neutrophils # (Auto) 10.15, Lymphocytes # (Auto) 0.93, Monocytes # (Auto) 0.83, Eosinophils # (Auto) 0.01, Basophils # (Auto) 0.01 10/29/17 20:45 Test 10/29/17 20:45 10/29/17 20:52 10/29/17 20:53 White Blood Count 11.96 K/uL (4.8-10.8) Red Blood Count 4.70 M/uL (4.2-5.4) Hemoglobin 14.0 g/dL (12.0-16.0) Hematocrit 42.5 % (37-47) Mean Corpuscular Volume 90.4 fL (80-100) Mean Corpuscular Hemoglobin 29.8 pg (25-34) Mean Corpuscular Hemoglobin Concent 32.9 g/dl (32-36) Platelet Count 263 K/uL (130-400) Mean Platelet Volume 10.6 fL (7.4-10.4) Neutrophils (%) (Auto) 84.8 % Lymphocytes (%) (Auto) 7.8 % Monocytes (%) (Auto) 6.9 % Eosinophils (%) (Auto) 0.1 % Basophils (%) (Auto) 0.1 % Neutrophils # (Auto) 10.15 K/uL (1.4-6.5) Lymphocytes # (Auto) 0.93 K/uL (1.2-3.4) Monocytes # (Auto) 0.83 K/uL (0.11-0.59) Eosinophils # (Auto) 0.01 K/uL (0-0.5) Basophils # (Auto) 0.01 K/uL (0-0.2) RDW Standard Deviation 49.0 fL (36.4-46.3) RDW Coefficient of Variation 14.7 % (11.5-14.5) Immature Granulocyte % (Auto) 0.3 % Immature Granulocyte # (Auto) 0.03 K/uL (0.00-0.02) Anion Gap 5.0 mmol/L (3-11) Est Creatinine Clear Calc Drug Dose 62.1 ml/min Estimated GFR () 55.9 Estimated GFR (Non- 48.3 BUN/Creatinine Ratio 13.4 (10-20) Calcium Level 9.2 mg/dl (8.5-10.1) Bedside Troponin I < 0.030 ng/ml (0-0.045) Influenza Type A Antigen Neg for Influ A (NEG) Influenza Type B Antigen Neg for Influ B (NEG) Laboratory studies as stated above per my review. Medications Administered Medications (Trade) Dose Ordered Sig/Donaldo Route Start Time Stop Time Status Last Admin Dose Admin Methylprednisolone Sodium Succinate (Solu-Medrol IV) 125 mg NOW STAT IV 10/29/17 20:35 10/29/17 20:40 DC 10/29/17 20:47 125 MG Amoxicillin/ Clavulanate Potassium (Augmentin Tab) 875 mg ONE ONCE PO 10/29/17 21:45 10/29/17 21:46 DC 10/29/17 21:48 875 MG ECG Indication: SOB/dyspnea Rate (beats per minute): 124 Rhythm: sinus tachycardia Findings: no acute ischemic change, no ectopy Change: Rate has increased when compared to 09/13/2017. ED Course 2030: Past medical records reviewed. The patient was evaluated in room C3, and a complete history and physical examination were performed. 2034: Ordered Solu-Medrol 125 mg IV 2044: Ordered Ipratropium [place] 2 mg INH and Levalbuterol 5 mg INH 2120: I reassessed the patient at this time. She is receiving treatment. 2144: Ordered Augmentin 875 mg PO 2204: I reassessed the patient at this time. She is feeling better and resting comfortably. The patient had a peak flow rating of 330. 2219: I reassessed the patient at this time. She is feeling better and resting comfortably. I discussed the results and treatment plan with the patient. I answered all pertaining questions that she had. She expressed understanding and verbalized agreement. The patient will be discharged home. Medical Decision Differentials include, but are not limited to; asthma, PNA, influenza, cardiac disease, and electrolyte or metabolic abnormality. This patient comes in as described above. She has history of asthma has been getting worse. She does have frequent asthma attacks to bring her to the emergency department. She says this feels just like her previous asthma exacerbations. She is not presently on any prednisone. She was given 1 hour Xopenex/Atrovent neb IV access established. She was given I did labs. She additionally received IV Solu-Medrol. Chest x-ray, EKG, and multiple blood tests was obtained. She has a cardiac history but says she has no significant chest pain and this feels just like her typical asthma exacerbations. She was reassessed frequently. She was feeling significantly better her peak flow went from 200 to 330 which she says is baseline. She was tachycardic but this is coming downward. I think is most likely from her asthma attack as well as the nebs she has received. She has no chest pain or pleurisy or anything to suggest PE her cardiac workup was unremarkable. There is questionable infiltrate on the base and she was given Augmentin here and a prescription for Augmentin she will be sent home with a prescription for prednisone 50 mg a day for the next 4 days. She should return if worsening symptoms, any new problems or concerns. She should follow with her regular doctor this week for recheck Medication Reconcilliation Current Medication List: was personally reviewed by me Blood Pressure Screening Patient's blood pressure: Elevated blood pressure Blood pressure disposition: Referred to PCP Impression Primary Impression: Acute asthma exacerbation Additional Impression: PNA (pneumonia) Scribe Attestation The scribe's documentation has been prepared under my direction and personally reviewed by me in its entirety. I confirm that the note above accurately reflects all work, treatment, procedures, and medical decision making performed by me. Departure Information Dispostion Home / Self-Care Prescriptions Prednisone (Prednisone) 50 Mg Tab 50 MG PO DAILY, #4 TAB Prov: Alex Herrmann M.D. 10/29/17 Amoxicillin & Pot Clavulanate (Augmentin 875-125 mg) 1 Tab Tab 875 MG PO BID for 10 Days, #20 TAB Prov: Alex Herrmann M.D. 10/29/17 Referrals Uma Ocampo M.D. (PCP) Forms HOME CARE DOCUMENTATION FORM, IMPORTANT VISIT INFORMATION, WORK / SCHOOL INSTRUCTIONS Patient Instructions My [facility] [employer] Additional Instructions Rest. Drink plenty of fluids. Use Augmentin 875 mg twice a day for 10 days-Antibiotic Use prednisone 50 mg once a day for 4 more days Continue use your inhalers/nebs Return to the ER if: Worsening of symptoms, shortness of breath, chest pain, any new problems or concerns Follow-up with your doctor on Thursday for recheck. Return to ER over the weekend if symptoms worsen. Problem Qualifiers
[2017-10-29 20:56] LABS: BASO % 0.1 %; BASO ABS # 0.01 K/uL (0-0.2); COMPLETE YES; EOS % 0.1 %; HEMATOCRIT 42.5 % (37-47); IG% 0.3 %; LYMPH % 7.8 %; LYMPH ABS # 0.93 K/uL (1.2-3.4); MEAN CELL VOLUME 90.4 fL (80-100); MEAN CORPUSCULAR HEMOGLOBIN 29.8 pg (25-34); MEAN CORPUSCULAR HGB CONC 32.9 g/dl (32-36); MEAN PLATELET VOLUME 10.6 fL (7.4-10.4); MONO % 6.9 %; NEUT % 84.8 %; PLATELET COUNT 263 K/uL (130-400); WHITE BLOOD COUNT 11.96 K/uL (4.8-10.8)
--- NOTE | 2017-10-29 21:05 | DIAGNOSTIC IMAGING REPORT ---
CHEST ONE VIEW PORTABLE HISTORY: Atypical CHEST PAIN COMPARISON: Chest 09/13/2017. FINDINGS: Hazy appearance the right lung base. The heart is normal in size. Left lung is clear. No pleural effusions. No pneumothorax. IMPRESSION: Hazy appearance to the right lung base which may represent atelectasis or developing pneumonia. Electronically signed by: Mookie Park M.D. 10/29/2017 9:03 PM Dictated Date/Time: 10/29/2017 9:02 PM
[2017-10-29] MEDS ORDERED: BENZ100C7 PO (21:08)
[2017-10-29] MEDS ORDERED: [UNRECOGNIZED DRUG - OTHER] INFIL (21:08)
[2017-10-29] MEDS ORDERED: EPP3/2 INJ (21:08)
[2017-10-29] MEDS ORDERED: DILT120C PO (21:08)
[2017-10-29] MEDS ORDERED: CLR10 PO (21:16)
[2017-10-29] MEDS ORDERED: FLNIN/ NAE (21:16)
[2017-10-29] MEDS ORDERED: PANT20TA2 PO (21:16)
[2017-10-29 21:17] LABS: BUN/CREATININE RATIO 13.4 (10-20); CALCIUM 9.2 mg/dl (8.5-10.1); CREATININE 1.26 mg/dl (0.60-1.20); POTASSIUM 3.5 mmol/L (3.5-5.1)
[2017-10-29] MEDS ORDERED: TIOT1SPR INH (21:18)
[2017-10-29] MEDS ORDERED: SYMIN160 INH (21:18)
[2017-10-29] MEDS ORDERED: ATOR-26 PO (21:24)
[2017-10-29 21:38] VITALS: PULSE 134; O2SAT 95
[2017-10-29] MEDS ORDERED: AMOXICILLIN/CLAVULANATE TAB 875 MG TAB PO ONE (21:45)
[2017-10-29 22:04] VITALS: BP 152/97; PULSE 129; O2SAT 94
[2017-10-29] MEDS ORDERED: PRED50TA PO (22:16)
[2017-10-29] MEDS ORDERED: AMOX875T PO (22:16)
== END 2017-10-29 22:22 | disposition home or self-care (01) ==
LOC: C.EDB 20:24 → C.EDC 22:22
DX: J45.901 Unspecified asthma with (acute) exacerbation (principal); J18.9 Pneumonia, unspecified organism; I10 Essential (primary) hypertension; E78.5 Hyperlipidemia, unspecified; I25.2 Old myocardial infarction; Z87.898 Personal history of other specified conditions; Z83.3 Family history of diabetes mellitus; Z82.49 Family history of ischemic heart disease and other diseases of the circulatory system; Z79.02 Long term (current) use of antithrombotics/antiplatelets; Z79.82 Long term (current) use of aspirin; Z79.899 Other long term (current) drug therapy

== ENCOUNTER 2017-12-11 13:40 | Emergency (ER) | payer OTHER ==
[~2017-12-11] VITALS: Ht 177.8 cm; Wt 90.0 kg
[~2017-12-11 13:40] MED LIST changes: -ALBUT/IPRATROP 3MG/0.5MG NEB 3 ML VIAL INH ONE; -METHYLPREDNISOLONE IV 80 MG in SYRINGE 0 ML IV ONE
[2017-12-11 13:42] VITALS: TEMP 36.9; Ht 177.8 cm; Wt 90.0 kg
[2017-12-11] MEDS ORDERED: ALBUT/IPRATROP 3MG/0.5MG NEB 3 ML VIAL INH ONE (14:00)
[2017-12-11 14:11] VITALS: O2SAT 96
[2017-12-11 14:34] VITALS: PULSE 93; O2SAT 98
[2017-12-11 15:32] VITALS: BP 132/93; PULSE 106; O2SAT 100
--- NOTE | 2017-12-11 15:38 | EMERGENCY ROOM VISIT NOTE ---
History First contact with patient: 13:46 Chief Complaint: RESPIRATORY PROBLEMS Stated Complaint: ASTHMA ATTACK History of Present Illness The patient is a 52 year old female who presents to the Emergency Room from the Endo lab with complaints of asthma attack. The patient states that her chest felt tight this morning. She took all her inhalers and medications as prescribed. She states she had to stop her prednisone 30 mg daily for 2 days prior to having the EGD. When she got to the endoscopy lab she was having difficulty breathing and therefore they did not do the EGD. They gave her IV Solu-Medrol 125 mg and a DuoNeb. They then sent her over here to the ER to be further evaluated. The patient denies any recent cold symptoms of head congestion and chest congestion, sore throat, ear pain or fever. The patient states her symptoms are typical for her asthma attack. 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 She is now getting the injections of Nucala for her asthma. The patient thinks that she was in a meeting prior to her EGD with some women who had perfume on and thinks that triggered the exacerbation. Review of Systems 10 system review was performed and was negative unless stated otherwise history of present illness. 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 (7) Non-STEMI (non-ST elevated myocardial infarction) (8) Uterine Leiomyoma Nos Surgical Problems: (1) History of appendectomy (2) History of heart catheterization (3) History of hemicolectomy Family History Diabetes mellitus Heart disease Hypertension Social History Smoking Status: Never Smoker Alcohol Use: none Drug Use: none Marital Status: Housing Status: lives with family Occupation Status: employed Current/Historical Medications Scheduled Aspirin (Aspirin Ec), 81 MG PO QPM Atorvastatin (Lipitor), 80 MG PO HS Budesonide/Formoterol Fumarate (Symbicort 160/4.5 Inhaler ), 2 PUFFS INH BID Cholecalciferol (Vitamin D), 1 TAB PO QAM Clopidogrel (Plavix), 75 MG PO QAM Diltiazem Hcl Coated Beads (Diltiazem Hcl Er), 120 MG PO QAM Epinephrine (Epipen 2-Serjio), 0.3 MG INJ UD Fluticasone Propionate (Nasal) (Allergy Nasal [place] [address] Ho), 2 SPRAY JETT BID Loratadine (Claritin), 10 MG PO QPM Mepolizumab (Nucala), 1 DOSE INJ MONTHLY Montelukast Sodium (Singulair), 10 MG PO QAM Pantoprazole Sodium (Protonix), 20 MG PO BID Prednisone Tab (Prednisone), 30 MG PO DAILY Ranitidine HCl (Ranitidine HCl), 150 MG PO BID Tiotropium [place] (Spiriva Respimat), 2 PUFF INH QAM Scheduled PRN Ipratropium-Albuterol (Duoneb), 3 ML NEB QID PRN for Asthma Symptoms Nitroglycerin (Nitrostat), 0.4 MG UT UD PRN for Chest Pain Miscellaneous Medications Albuterol Sulf (Ventolin), 2 PUFFS INH Physical Exam Vital Signs Date Time Temp Pulse Resp B/P (MAP) Pulse Ox O2 Delivery O2 Flow Rate FiO2 12/11/17 15:32 106 18 132/93 100 Nebulizer 12/11/17 14:34 93 20 98 Room Air 12/11/17 14:11 96 Nasal Cannula 12/11/17 13:42 36.9 98 20 159/106 94 Room Air Physical Exam PHYSICAL EXAM: Vital Signs were reviewed: Temperature 36.9, blood pressure 159/ 106, pulse 98, respiratory rate 20 Reviewed Nurse's notes and agree. Oxygen saturation is 94 % on room air which is normal . GENERAL: 52-year-old female appears in no acute distress. MENTAL STATUS: Alert, oriented, coherent. EARS: Canals clear. TMs good light reflex, no erythema or fluid level noted. NOSE: Nasal mucosa with mild erythema engorgement. PHARYNX:no erythema, no edema noted. No exudate noted. Airway is adequate. NECK: Supple, non-tender. No lymphadenopathy noted. LUNGS: Patient has both inspiratory and expiratory wheezing both lung phelps. Poor air exchange bilaterally. CARDIAC: Regular rate and rhythm without murmur. SKIN: no rashes noted. Medical Decision & Procedures Medications Administered Medications (Trade) Dose Ordered Sig/Donaldo Route Start Time Stop Time Status Last Admin Dose Admin Albuterol/ Ipratropium (Duoneb) 12 ml ONE ONCE INH 12/11/17 14:00 12/11/17 14:01 DC 12/11/17 14:33 12 ML ED Course The patient was evaluated. IV access was already in place and the patient already had Solu-Medrol 125 mg IV. She also already had a DuoNeb. The patient will receive a 1 hour DuoNeb. After the nebulized treatment the patient was reevaluated. She stated she was feeling much better. On auscultation her lungs had only faint inspiratory and expiratory wheeze bilaterally with good air exchange. The patient was discharged home in stable condition. Medical Decision Differential diagnosis include asthma exacerbation, bronchitis, pneumonia, influenza The patient is a known asthmatic and had acute onset of tightness in her chest consistent with asthma exacerbation. [place] Drug Monitoring Program Search Results: patient reviewed within database Medication Reconcilliation Current Medication List: was personally reviewed by me Blood Pressure Screening Patient's blood pressure: Normal blood pressure Impression Primary Impression: Acute asthma exacerbation Departure Information Dispostion Home / Self-Care Condition GOOD Referrals Uma Ocampo M.D. (PCP) Forms HOME CARE DOCUMENTATION FORM, IMPORTANT VISIT INFORMATION, WORK / SCHOOL INSTRUCTIONS Patient Instructions Asthma - [facility], [facility] Additional Instructions Continue all medications as prescribed. Resume your prednisone daily as prescribed. Follow-up with your pre wave assembler/builder beam if symptoms persist or worsen. Problem Qualifiers Primary Impression: Acute asthma exacerbation Asthma severity: moderate Asthma persistence: unspecified Qualified Codes: J45.901 - Unspecified asthma with (acute) exacerbation
== END 2017-12-11 15:48 | disposition home or self-care (01) ==
LOC: C.EDB 13:41 → C.EDC 15:48
DX: J45.901 Unspecified asthma with (acute) exacerbation (principal); E78.5 Hyperlipidemia, unspecified; I10 Essential (primary) hypertension; E03.9 Hypothyroidism, unspecified; I25.2 Old myocardial infarction; Z85.00 Personal history of malignant neoplasm of unspecified digestive organ; Z90.49 Acquired absence of other specified parts of digestive tract; Z83.3 Family history of diabetes mellitus; Z82.49 Family history of ischemic heart disease and other diseases of the circulatory system; Z79.82 Long term (current) use of aspirin; Z79.899 Other long term (current) drug therapy; Z79.01 Long term (current) use of anticoagulants

== ENCOUNTER → 2017-12-11 | Day surgery (SDC) | payer BC, OTHER ==
[2017-11-25 08:06] VITALS: BMI 29.0
[~2017-12-11] VITALS: Ht 177.8 cm; Wt 90.9 kg
[~2017-12-11] MED LIST changes: -ALBU18002 INH; +ALBU2SYP9 INH; +ALBUT/IPRATROP 3MG/0.5MG NEB 3 ML VIAL INH ONE; +ATOR-26 PO; -CARV3.122 PO; +CHOL100010 PO; +CLR10 PO; +DILT120C PO; +EPP3/2 INJ; -FLUC200T PO; +FLUT50SP45 NAE; +METHYLPREDNISOLONE IV 80 MG in SYRINGE 0 ML IV ONE; +PANT20TA2 PO; -PLMINS NEB; +PRED10TA PO; +PRED50TA PO; -SPRIN/30 INH; +TIOT1SPR INH
[2017-12-11 12:40] VITALS: TEMP 36.8
[2017-12-11 12:43] VITALS: Ht 177.8 cm; Wt 90.9 kg
[2017-12-11 12:59] VITALS: BP 152/107; PULSE 104; O2SAT 95; O2SAT 96
--- NOTE | 2017-12-11 13:15 | Progress Note ---
Progress Note Date of Service Dec 11, 2017. Progress Note Patient presented today for EGD with Dr Graham to evaluate dysphagia. She has a long standing history of asthma with frequent exacerbations, especially during the winter months. In addition, she is currently being managed for viral laryngitis which has been persistent for ~3months and is being managed with prednisone by a physician in [place]. Her presenting complaint of dysphagia has been ongoing for much longer, she says. Today, the patient feels her breathing is worse than normal. She has a hoarse voice and inspiratory and expiratory wheezing is evident on exam. She also has a very reactive cough. O2 saturations are 96% on room air and she is not conversationally dyspneic or appearing to have increased work of breathing. A duoneb was given, which only minimally improved her weezing and dyspnea symptoms. On days like this, the patient says she often has to be seen in the ER for "a steroid shot." Of note, she has held her prednisone for 2 days. I discussed the risks of proceeding with an upper airway procedure given her current condition. Given that her asthma is significantly worse than normal today, and that she appears to be experiencing an exacerbation despite steroid therapy, Dr Graham and I have elected to delay the procedure at this time. I did give the patient a single dose of Solumedrol 80mg, with instructions to return to the ER if she has increasing dyspnea or work of breathing. She should follow up with her PCP or Diplomatic Interpreter.
== END | disposition home or self-care (01) ==
LOC: C.GI 12:16
PROVIDERS: ATTEND Internal Medicine Gastroenterology
DX: R13.10 Dysphagia, unspecified (principal); Z53.09 Procedure and treatment not carried out because of other contraindication; J45.901 Unspecified asthma with (acute) exacerbation

== ENCOUNTER 2018-01-02 10:46 | Emergency (ER) | payer OTHER ==
[~2018-01-02] VITALS: Ht 177.8 cm; Wt 90.3 kg
[~2018-01-02 10:46] MED LIST changes: +DILT-213 PO; -DILT120C PO; -PRED50TA PO
[2018-01-02] MEDS ORDERED: METHYLPREDNISOLONE 125 MG VIAL IV STA (11:02)
[2018-01-02] MEDS ORDERED: ACETAMINOPHEN 500 MG TAB PO STA (11:03)
--- NOTE | 2018-01-02 11:11 | EMERGENCY ROOM VISIT NOTE ---
History Report prepared by Lucio: Jian Dickens Under the Supervision of: Dr. Jose David Pereira M.D. First contact with patient: 10:58 Chief Complaint: SHORTNESS OF BREATH Stated Complaint: ASTHMA/SOB Nursing Triage Summary: Hx complicated asthma, follows Dr. Robin Grande with pulmonology, woke up at 0400 with asthma attack, difficulty finishing sentences due to shortness of breath. Also c/o 10/10 headache. History of Present Illness The patient is a 52 year old female who presents to the Emergency Room with complaints of SOB that began 5 hours ago. She has a long history of COPD exacerbations and asthma. She had a rapid onset of SOB that is similar to previous asthma exacerbations and worse than standard COPD exacerbations. She states that her breathing difficulties are worse than previous episodes. She has used a nebulizer without improvement. The patient states she has taken 40 mg of Prednisone. The patient reports runny nose, body aches, and headache. She denies abdominal pain and fevers. Her pneumatic jacketer is Dr. Francisco Grande. Of note , she is currently on Diltiazem and Plavix Source of History: patient Onset: 5 hours ago Position: other Timing: constant Associated Symptoms: + headache, + SOB, No fevers, No abdominal pain Note: The patient reports runny nose and body aches. Review of Systems See HPI for pertinent positives & negatives. A total of 10 systems reviewed and were otherwise negative. 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 (7) Non-STEMI (non-ST elevated myocardial infarction) (8) Uterine Leiomyoma Nos Surgical Problems: (1) History of appendectomy (2) History of heart catheterization (3) History of hemicolectomy Family History Diabetes mellitus Heart disease Hypertension Social History Smoking Status: Never Smoker Alcohol Use: none Drug Use: none Marital Status: Housing Status: lives with family Occupation Status: employed Current/Historical Medications Scheduled Aspirin (Aspirin Ec), 81 MG PO QPM Atorvastatin (Lipitor), 80 MG PO HS Beclomethasone Dip (Qvar), Unknown Dose INH BID Budesonide/Formoterol Fumarate (Symbicort 160/4.5 Inhaler ), 2 PUFFS INH BID Cholecalciferol (Vitamin D), 1 TAB PO QAM Clopidogrel (Plavix), 75 MG PO QAM Diltiazem Hcl Coated Beads (Diltiazem Hcl Er), 120 MG PO QAM Epinephrine (Epipen 2-Serjio), 0.3 MG INJ UD Fluticasone Propionate (Nasal) (Allergy Nasal [place] 24 Ho), 2 SPRAY JETT BID Loratadine (Claritin), 10 MG PO QPM Mepolizumab (Nucala), 1 DOSE INJ MONTHLY Montelukast Sodium (Singulair), 10 MG PO QAM Pantoprazole Sodium (Protonix), 20 MG PO BID Paroxetine Hcl (Paxil), 10 MG PO HS Prednisone Tab (Prednisone), 30 MG PO DAILY Ranitidine HCl (Ranitidine HCl), 150 MG PO BID Tiotropium [place] (Spiriva Respimat), 2 PUFF INH QAM Scheduled PRN Albuterol Sulf (Proventil 0.083% 2.5MG/3ML), 2.5 MG INH UD PRN for Shortness of Breath Ipratropium-Albuterol (Duoneb), 3 ML NEB QID PRN for Asthma Symptoms Nitroglycerin (Nitrostat), 0.4 MG UT UD PRN for Chest Pain Allergies Coded Allergies: No Known Allergies (Verified , 01/02/18) Physical Exam Vital Signs Date Time Temp Pulse Resp B/P (MAP) Pulse Ox O2 Delivery O2 Flow Rate FiO2 01/02/18 14:08 127 22 138/92 92 Nasal Cannula 2.0 01/02/18 13:22 93 Nasal Cannula 2.0 01/02/18 13:21 88 Room Air 01/02/18 13:00 93 Nasal Cannula 2.0 01/02/18 12:07 120 20 140/89 97 Room Air 01/02/18 11:19 117 26 94 Room Air 01/02/18 11:06 121 01/02/18 10:53 93 01/02/18 10:53 37.0 121 20 149/86 93 Room Air Physical Exam GENERAL: Patient is acutely ill appearing and in minimal distress. HEENT: No acute trauma, normocephalic atraumatic, mucous membranes moist, no nasal congestion, no scleral icterus. Runny nose. NECK: No stridor, no adenopathy, no meningismus, trachea is midline. LUNGS: Dyspneic, tachypneic, and very tight lung sounds with diffuse wheezing. Clear to auscultation and equal bilaterally. No wheeze, no rhonchi. HEART: Tachycardiac. Regular rhythm. No murmurs, rubs, gallops appreciated. ABDOMEN: Soft, nontender, bowel sounds positive, no masses appreciated, no peritonitis. BACK: No midline tenderness, no CVA tenderness EXTREMITIES: Normal motion all extremities, no cyanosis, no edema. NEUROLOGIC: Alert and oriented, no acute motor or sensory deficits, no focal weakness, cranial nerves grossly intact. SKIN: No rash, no jaundice, no diaphoresis. Medical Decision & Procedures ER Provider Diagnostic Interpretation: Radiology results and stated below per my review and radiologist interpretation: CHEST ONE VIEW PORTABLE HISTORY: Acute asthma COMPARISON: Chest 10/29/2017. FINDINGS: The lungs are clear. Cardiac silhouette is normal in size. No pleural effusions. No pneumothorax. IMPRESSION: No acute process. Electronically signed by: Mookie Park M.D. 01/02/2018 11:39 AM Dictated Date/Time: 01/02/2018 11:38 AM Laboratory Results 01/02/18 11:11 Red Blood Count 4.72, Mean Corpuscular Volume 88.6, Mean Corpuscular Hemoglobin 29.4, Mean Corpuscular Hemoglobin Concent 33.3, Mean Platelet Volume 10.8, Neutrophils (%) (Auto) 94.1, Lymphocytes (%) (Auto) 4.4, Monocytes (%) (Auto) 1.0, Eosinophils (%) (Auto) 0.0, Basophils (%) (Auto) 0.2, Neutrophils # (Auto) 5.59, Lymphocytes # (Auto) 0.26, Monocytes # (Auto) 0.06, Eosinophils # (Auto) 0.00, Basophils # (Auto) 0.01 01/02/18 11:11 Test 01/02/18 11:11 01/02/18 11:15 White Blood Count 5.94 K/uL (4.8-10.8) Red Blood Count 4.72 M/uL (4.2-5.4) Hemoglobin 13.9 g/dL (12.0-16.0) Hematocrit 41.8 % (37-47) Mean Corpuscular Volume 88.6 fL (80-100) Mean Corpuscular Hemoglobin 29.4 pg (25-34) Mean Corpuscular Hemoglobin Concent 33.3 g/dl (32-36) Platelet Count 221 K/uL (130-400) Mean Platelet Volume 10.8 fL (7.4-10.4) Neutrophils (%) (Auto) 94.1 % Lymphocytes (%) (Auto) 4.4 % Monocytes (%) (Auto) 1.0 % Eosinophils (%) (Auto) 0.0 % Basophils (%) (Auto) 0.2 % Neutrophils # (Auto) 5.59 K/uL (1.4-6.5) Lymphocytes # (Auto) 0.26 K/uL (1.2-3.4) Monocytes # (Auto) 0.06 K/uL (0.11-0.59) Eosinophils # (Auto) 0.00 K/uL (0-0.5) Basophils # (Auto) 0.01 K/uL (0-0.2) RDW Standard Deviation 46.2 fL (36.4-46.3) RDW Coefficient of Variation 14.2 % (11.5-14.5) Immature Granulocyte % (Auto) 0.3 % Immature Granulocyte # (Auto) 0.02 K/uL (0.00-0.02) Anion Gap 7.0 mmol/L (3-11) Est Creatinine Clear Calc Drug Dose 76.1 ml/min Estimated GFR () 71.4 Estimated GFR (Non- 61.6 BUN/Creatinine Ratio 12.7 (10-20) Calcium Level 9.3 mg/dl (8.5-10.1) Troponin I < 0.015 ng/ml (0-0.045) Influenza Type A (RT-PCR) POS for Influ A (NEG) Influenza Type A Antigen Neg for Influ A (NEG) Influenza Type B Antigen Neg for Influ B (NEG) Influenza Type B (RT-PCR) Neg for Influ B (NEG) Laboratory results as reviewed by me. Medications Administered Medications (Trade) Dose Ordered Sig/Donaldo Route Start Time Stop Time Status Last Admin Dose Admin Albuterol/ Ipratropium (Duoneb) 12 ml ONE ONCE INH 01/02/18 11:15 01/02/18 11:16 DC 01/02/18 11:18 12 ML Methylprednisolone Sodium Succinate (Solu-Medrol IV) 80 mg NOW STAT IV 01/02/18 11:02 01/02/18 11:04 DC 01/02/18 11:08 80 MG Acetaminophen (Tylenol Tab) 1,000 mg NOW STAT PO 01/02/18 11:03 01/02/18 11:04 DC 01/02/18 11:09 1,000 MG Lorazepam (Ativan Inj) 1 mg NOW STAT IV 01/02/18 12:14 01/02/18 12:15 DC 01/02/18 12:24 1 MG ECG Per My Interpretation Indication: SOB/dyspnea Rate (beats per minute): 112 Rhythm: sinus tachycardia Findings: no acute ischemic change, no ectopy Change: EKG: Electrocardiogram per my interpretation. ED Course 1058: The patient was evaluated in room C12B. A complete history and physical exam was performed. 1215: I checked on the patient. She still has loud diffuse wheezing. She admits this is worse than normal asthma exacerbations. She feels that she needs to be evaluated by hospitalist. 1238: I discussed the patient's case with Dr. Faraz Miner. The patient will be evaluated for further treatment and disposition. 1245: Upon reevaluation, the patient is doing well. Discussed results and treatment plan with the patient. She verbalized understanding and agreement with the treatment plan. The patient will be evaluated for further management. 1446: I checked on the patient. She is mildly tachycardiac. She states she did not take her Cardizem this morning. I discussed these findings with Dr. Miner. Medical Decision Differential: Infectious, Reactive Airway Disease, Pneumonia, Pneumothorax, COPD , CHF, ACS, Pulmonary Embolism, MSK, GI, Dissection, amongst other etiologies entertained. Pleasant 52 yr old female well known to me from previous visits arrives in acute respiratory distress from asthma exacerbation. Started on Hour Neb along with IV steroids and work-up. She has no evidence pneumonia. Labs look OK. After 1.5 hrs neb still quite a bit of wheezing and her O2 sats are starting to fall a bit. She does not look tired out to point of requiring intubation but I feel she has failed attempt to get her well enough to go home. Hospitalist consulted. Initial flu negative but PCR returns positive thus given Tamiflu. Medication Reconcilliation Current Medication List: was personally reviewed by me Blood Pressure Screening Patient's blood pressure: Elevated blood pressure Blood pressure disposition: Elevated BP felt to be situational Consults Time Called: 1236 Consulting Physician: Dr. Faraz Miner Returned Call: [phone] Discussed the patient's case. The patient will be evaluated for further treatment and disposition. Impression Primary Impression: Acute asthma exacerbation Additional Impression: Status asthmaticus Scribe Attestation The scribe's documentation has been prepared under my direction and personally reviewed by me in its entirety. I confirm that the note above accurately reflects all work, treatment, procedures, and medical decision making performed by me. Departure Information Referrals Uma Ocampo M.D. (PCP) Patient Instructions My [facility] Problem Qualifiers
[2018-01-02] MEDS ORDERED: ALBUT/IPRATROP 3MG/0.5MG NEB 3 ML VIAL INH ONE (11:15)
[2018-01-02] MEDS ORDERED: ALBINS/ INH (11:17)
[2018-01-02] MEDS ORDERED: QVRINH80 INH (11:18)
[2018-01-02] MEDS ORDERED: PARO10TA PO (11:18)
[2018-01-02 11:19] VITALS: PULSE 117; O2SAT 94
[2018-01-02 11:20] LABS: BASO % 0.2 %; BASO ABS # 0.01 K/uL (0-0.2); HEMATOCRIT 41.8 % (37-47); HEMOGLOBIN 13.9 g/dL (12.0-16.0); IG# 0.02 K/uL (0.00-0.02); LYMPH % 4.4 %; LYMPH ABS # 0.26 K/uL (1.2-3.4); MEAN CELL VOLUME 88.6 fL (80-100); MEAN CORPUSCULAR HEMOGLOBIN 29.4 pg (25-34); MEAN CORPUSCULAR HGB CONC 33.3 g/dl (32-36); MEAN PLATELET VOLUME 10.8 fL (7.4-10.4); MONO ABS # 0.06 K/uL (0.11-0.59); NEUT % 94.1 %; NEUT ABS # 5.59 K/uL (1.4-6.5); PLATELET COUNT 221 K/uL (130-400); RED CELL DISTRIBUTION WIDTH CV 14.2 % (11.5-14.5); RED CELL DISTRIBUTION WIDTH SD 46.2 fL (36.4-46.3); WHITE BLOOD COUNT 5.94 K/uL (4.8-10.8)
[2018-01-02 11:39] LABS: BLOOD UREA NITROGEN 13 mg/dl (7-18); CALCIUM 9.3 mg/dl (8.5-10.1); CARBON DIOXIDE 28 mmol/L (21-32); CREATININE 1.03 mg/dl (0.60-1.20); GLUCOSE 100 mg/dl (70-99); POTASSIUM 3.6 mmol/L (3.5-5.1); SODIUM 141 mmol/L (136-145)
--- NOTE | 2018-01-02 11:40 | DIAGNOSTIC IMAGING REPORT ---
CHEST ONE VIEW PORTABLE HISTORY: Acute asthma COMPARISON: Chest 10/29/2017. FINDINGS: The lungs are clear. Cardiac silhouette is normal in size. No pleural effusions. No pneumothorax. IMPRESSION: No acute process. Electronically signed by: Mookie Park M.D. 01/02/2018 11:39 AM Dictated Date/Time: 01/02/2018 11:38 AM
[2018-01-02 11:45] LABS: INFLUENZA B ANTIGEN Neg for Influ B (NEG)
[2018-01-02] MEDS ORDERED: LORAZEPAM 2 MG/ML 1 ML VIAL IV STA (12:14)
[2018-01-02 13:00] VITALS: O2SAT 93; Ht 177.8 cm; Wt 90.3 kg
--- NOTE | 2018-01-02 14:04 | History and Physical ---
History & Physical Date & Time of Service: Jan 02, 2018 at 14:02 Chief Complaint: Asthma/Sob Primary Care Physician: Uma Ocampo M.D. History of Present Illness Source: patient 52 yo female with history of asthma. She comes in today with an asthma exacerbation. She awoke at 4am because she couldn't breath. She took a nebulizer treatment of albuterol and went to bed. Within thee hour, the effect wore off and again she needed another rescue treatment. This cycle continued for another 2 times until she deced yin she needed to go to the ER. In the ER, patient received IV corticosteroids and a series of rescue nebs with no significant improvement which prompted the ER to call for an admission. Patient denies fever, chills, productive cough, sick contacts. As I was completing the orders for the admission, I was called by the ER stating that her Flu came back positive. Patient does report feeling, 50% back to her baseline. She states she believes she will be dc tomorrow. 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 PRESCRIBED Qvar since Fall of last year. No improvement in her hoarseness 4)Asthma: On symbicort, Nebulizers which she uses daily. She states that these are controlled Family History Diabetes mellitus Heart disease Hypertension 1. Family history of Rheumatoid Arthritis 2. Family history of HIV Infection 3. Family history of Allergic Rhinitis 4. Family history of Cancer 5. Family history of Diabetes Mellitus 6. Family history of Heart Disease Social History Smoking Status: Never Smoker Drug Use: none Marital Status: Housing status: lives with family Occupational Status: employed Immunizations History of Influenza Vaccine: Yes Influenza Vaccine Date: Nov 03, 2012 History of Tetanus Vaccine?: Yes History of Pneumococcal: No History of Hepatitis B Vaccine: No Multi-Drug Resistant Organisms History of MDRO: No Allergies Coded Allergies: No Known Allergies (Verified , 01/02/18) Home Medications Scheduled Aspirin (Aspirin Ec), 81 MG PO QPM Atorvastatin (Lipitor), 80 MG PO HS Beclomethasone Dip (Qvar), Unknown Dose INH BID Budesonide/Formoterol Fumarate (Symbicort 160/4.5 Inhaler ), 2 PUFFS INH BID Cholecalciferol (Vitamin D), 1 TAB PO QAM Clopidogrel (Plavix), 75 MG PO QAM Diltiazem Hcl Coated Beads (Diltiazem Hcl Er), 120 MG PO QAM Epinephrine (Epipen 2-Serjio), 0.3 MG INJ UD Fluticasone Propionate (Nasal) (Allergy Nasal [place] 24 Ho), 2 SPRAY JETT BID Loratadine (Claritin), 10 MG PO QPM Mepolizumab (Nucala), 1 DOSE INJ MONTHLY Montelukast Sodium (Singulair), 10 MG PO QAM Pantoprazole Sodium (Protonix), 20 MG PO BID Paroxetine Hcl (Paxil), 10 MG PO HS Prednisone Tab (Prednisone), 30 MG PO DAILY Ranitidine HCl (Ranitidine HCl), 150 MG PO BID Tiotropium [place] (Spiriva Respimat), 2 PUFF INH QAM Scheduled PRN Albuterol Sulf (Proventil 0.083% 2.5MG/3ML), 2.5 MG INH UD PRN for Shortness of Breath Ipratropium-Albuterol (Duoneb), 3 ML NEB QID PRN for Asthma Symptoms Nitroglycerin (Nitrostat), 0.4 MG UT UD PRN for Chest Pain Review of Systems Constitutional: No fever, No chills, No sweats Eyes: No worsening of vision ENT: No hearing loss Respiratory: + cough, + wheezing, + shortness of breath, + dyspnea on exertion , + dyspnea at rest, No sputum, No hemoptysis Abdomen: No pain, No nausea Musculoskeletal: No joint pain Neurologic: No memory loss Psychiatric: No depression symptoms Endocrine: + fatigue Hematologic / Lymphatic: No abnormal bleeding/bruising Integumentary: No rash Allergic / Immunologic: + environmental allergies, + seasonal allergies, No pet sensitivities Physical Exam Vital Signs Date Time Temp Pulse Resp B/P (MAP) Pulse Ox O2 Delivery O2 Flow Rate FiO2 01/02/18 13:22 93 Nasal Cannula 2.0 01/02/18 13:21 88 Room Air 01/02/18 12:07 120 20 140/89 97 Room Air 01/02/18 11:19 117 26 94 Room Air 01/02/18 11:06 121 01/02/18 10:53 93 01/02/18 10:53 37.0 121 20 149/86 93 Room Air General Appearance: WD/WN, no apparent distress Head: normocephalic Eyes: normal inspection ENT: normal ENT inspection Neck: supple, no adenopathy Respiratory/Chest: chest non-tender, + wheezing Cardiovascular: regular rate, rhythm, no edema Abdomen/GI: normal bowel sounds, non tender, soft Extremities/Musculoskelatal: normal inspection, no calf tenderness Neurologic/Psych: alert, normal reflexes, oriented x 3 Skin: normal color Lymphatic: no adenopathy Diagnostics Laboratory Results Results Past 24 Hours Test 01/02/18 11:11 01/02/18 11:15 01/02/18 12:14 Range/Units White Blood Count 5.94 4.8-10.8 K/uL Red Blood Count 4.72 4.2-5.4 M/uL Hemoglobin 13.9 12.0-16.0 g/dL Hematocrit 41.8 37-47 % Mean Corpuscular Volume 88.6 80-100 fL Mean Corpuscular Hemoglobin 29.4 25-34 pg Mean Corpuscular Hemoglobin Concent 33.3 32-36 g/dl Platelet Count 221 130-400 K/uL Mean Platelet Volume 10.8 7.4-10.4 fL Neutrophils (%) (Auto) 94.1 % Lymphocytes (%) (Auto) 4.4 % Monocytes (%) (Auto) 1.0 % Eosinophils (%) (Auto) 0.0 % Basophils (%) (Auto) 0.2 % Neutrophils # (Auto) 5.59 1.4-6.5 K/uL Lymphocytes # (Auto) 0.26 1.2-3.4 K/uL Monocytes # (Auto) 0.06 0.11-0.59 K/uL Eosinophils # (Auto) 0.00 0-0.5 K/uL Basophils # (Auto) 0.01 0-0.2 K/uL RDW Standard Deviation 46.2 36.4-46.3 fL RDW Coefficient of Variation 14.2 11.5-14.5 % Immature Granulocyte % (Auto) 0.3 % Immature Granulocyte # (Auto) 0.02 0.00-0.02 K/uL Sodium Level 141 136-145 mmol/L Potassium Level 3.6 3.5-5.1 mmol/L Chloride Level 106 98-107 mmol/L Carbon Dioxide Level 28 21-32 mmol/L Anion Gap 7.0 3-11 mmol/L Blood Urea Nitrogen 13 7-18 mg/dl Creatinine 1.03 0.60-1.20 mg/dl Est Creatinine Clear Calc Drug Dose 76.1 ml/min Estimated GFR () 71.4 Estimated GFR (Non- 61.6 BUN/Creatinine Ratio 12.7 10-20 Random Glucose 100 70-99 mg/dl Calcium Level 9.3 8.5-10.1 mg/dl Troponin I < 0.015 0-0.045 ng/ml Influenza Type A Antigen Neg for Influ A NEG Influenza Type B Antigen Neg for Influ B NEG Diagnostic Radiology CHEST ONE VIEW PORTABLE HISTORY: Acute asthma COMPARISON: Chest 10/29/2017. FINDINGS: The lungs are clear. Cardiac silhouette is normal in size. No pleural effusions. No pneumothorax. IMPRESSION: No acute process. EKG Sinus tachycardia Possible Left atrial enlargement Nonspecific T wave abnormality Abnormal ECG When compared with ECG of 29-OCT-2017 20:44, No significant change was found Confirmed by JULIA MOSES ([id number]) on 01/02/2018 7:06:14 PM Impression Assessment and Plan Asthma exacerbation secondary to Influenza in a 52 yo female with h/o Asthma, Ulcerative laryngitis will admit to med surg. Received 80 mg of solumedrol IV will continue with 40mg. Will prescribe Tamiflu Patient did appear to be improving with her treatment and felt 50% better. Will anticipate short hospital stay, even with the influenza diagnosis. Discharge dependent on how patient feels clinically. Will continue patient's home medicine H/O Asthma continue home meds H/O laryngopharyngeal reflux and ulcerative laryngitis continue home Meds. patient states they added her on Qvar eventhough she is on symbicort. Will continue both. H/O MA with stents placed. 2-3 Years ago. Misse dosed of plavix, given that this has occured over 1 year, no worry that she missed on dose of plavix. will resume tomorrow in AM continue home meds. Tachycardia Patient reports she did not take her morning pils. Missing the cardizem could explain her tachycardia as well as the multip nebs. Don't believe she is septic will monitor H/O sjogren stable. will monitor. Level of Care Med/Surg Advanced Directives Existing Living Will: No Existing Power of Music Director: No Resuscitation Status FULL RESUSCITATION VTE Prophylaxis VTE Risk Assessment Done? Y/N: Yes Risk Level: Very Low Given or contraindicated: SCD's (patient ambulating)
[2018-01-02] MEDS ORDERED: NITROGLYCERIN 0.4 MG SL PER TAB CHARGE UT PRN (14:15)
[2018-01-02] MEDS ORDERED: DILTIAZEM SR 60 MG CAP PO STA (14:22)
[2018-01-02 14:40] LABS: INFLUENZA B PCR Neg for Influ B (NEG)
[2018-01-02 14:41] LABS: INFLUENZA A PCR POS for Influ A (NEG)
[2018-01-02] MEDS ORDERED: OSELTAMIVIR PHOSPHATE 75 MG CAP PO STA (14:42)
[2018-01-02] MEDS ORDERED: IV FLUIDS COMPLETED PRN (15:00)
[2018-01-02 15:43] VITALS: BP 160/94; PULSE 133; TEMP 36.8; O2SAT 96
[2018-01-02] MEDS ORDERED: ONDANSETRON INJ 6 MG in DEXTROSE 5% 50ML 50 ML IV PRN ×5 (16:15→16:30)
[2018-01-02] MEDS ORDERED: NURSING VERBAL MED ORDER ONE (16:15)
[2018-01-02 16:20] VITALS: O2SAT 96
[2018-01-02 17:25] VITALS: BP 110/72; PULSE 118; TEMP 36.8; O2SAT 88
[2018-01-02 20:21] VITALS: PULSE 108; O2SAT 92
[2018-01-02] MEDS: ALBUT/IPRATROP 3MG/0.5MG NEB 3 ML VIAL INH PRN (20:21)
[2018-01-02] MEDS: BECLOMETHASONE DIP HFA 80 MCG 8.7G INH INH SCH (22:16)
[2018-01-02] MEDS: BUDESONIDE/FORMOTEROL FUMARATE 160/4.5 60 PUFFS/INHALER INH SCH (22:17)
[2018-01-02] MEDS: FLUTICASONE PROPIONATE NA SPR 16 GM BTL NAE SCH (22:17)
[2018-01-02] MEDS: RANITIDINE HCL 150 MG TAB PO SCH (22:18)
[2018-01-02] MEDS: PAROXETINE 20 MG TAB PO SCH (22:18)
[2018-01-02] MEDS: PANTOprazole SOD 40 MG TAB PO SCH (22:19)
[2018-01-02] MEDS: LORATADINE 10 MG TAB PO SCH (22:19)
[2018-01-02] MEDS: ASPIRIN 81 MG ECTAB PO SCH (22:19)
[2018-01-02] MEDS: ATORVASTATIN 40 MG TAB PO SCH (22:20)
[2018-01-03] VITALS: BP 134/91; PULSE 108; TEMP 37.1; O2SAT 92
[2018-01-03] MEDS: OSELTAMIVIR PHOSPHATE 75 MG CAP PO SCH ×2 (06:33→18:45)
[2018-01-03 07:03] VITALS: BP 113/75; PULSE 97; TEMP 37.1; O2SAT 91
[2018-01-03] MEDS: BECLOMETHASONE DIP HFA 80 MCG 8.7G INH INH SCH ×2 (08:09→20:05)
[2018-01-03] MEDS: DILTIAZEM HCL 120 MG CAPCR PO SCH (08:09)
[2018-01-03] MEDS: FLUTICASONE PROPIONATE NA SPR 16 GM BTL NAE SCH ×2 (08:09→20:06)
[2018-01-03] MEDS: BUDESONIDE/FORMOTEROL FUMARATE 160/4.5 60 PUFFS/INHALER INH SCH ×2 (08:09→20:06)
[2018-01-03] MEDS: PANTOprazole SOD 40 MG TAB PO SCH ×2 (08:10→20:09)
[2018-01-03] MEDS: RANITIDINE HCL 150 MG TAB PO SCH ×2 (08:10→20:09)
[2018-01-03] MEDS: CLOPIDOGREL BISULFATE 75 MG TAB PO SCH (08:10)
[2018-01-03] MEDS: MONTELUKAST SOD 10 MG TAB PO SCH (08:10)
[2018-01-03] MEDS: METHYLPREDNISOLONE IV 40 MG in SYRINGE 0 ML IV SCH (08:38)
[2018-01-03 09:18] VITALS: PULSE 91; O2SAT 98
[2018-01-03] MEDS: ALBUT/IPRATROP 3MG/0.5MG NEB 3 ML VIAL INH PRN (09:18)
[2018-01-03 14:38] VITALS: BP 126/79; PULSE 89; TEMP 37; O2SAT 94
[2018-01-03 16:07] VITALS: O2SAT 95
--- NOTE | 2018-01-03 18:41 | PROGRESS NOTE ---
DATE: 01/03/2018 HISTORY OF PRESENT ILLNESS: Ms. 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 She was dyspneic with speaking, and she was noted to be hypoxemic. In addition to that, she had a headache and generalized malaise. The patient tried using her nebulizer treatments at home, and after repeated nebulizer treatments -- she did not have any improvement in her breathing status, therefore she went to the Emergency Room. In the Emergency Room she was treated with IV corticosteroids followed by an hour long nebulizer treatment. This resulted in some improvement in her shortness of breath, but she did have further episodes of hypoxia, coughing, and she was noted to be positive for influenza A. Therefore admission was recommended. At the present time, she states that her shortness of breath has improved subjectively by 75%, although she is still coughing frequently, and requires supplemental oxygen. The patient is no longer having headache, and she denies any stiff neck. She further denies any angina pectoris. The patient has been appropriately started on Tamiflu, IV Solu-Medrol and she continues to receive DuoNeb nebulizers q.i.d. in addition to her usual inhalers. The patient has remained afebrile throughout her stay thus far. Her cough is nonproductive. MEDICATIONS: 1. Clopidogrel 75 mg daily. 2. Diltiazem CD 120 mg daily. 3. Singulair 10 mg daily. 4. Solu-Medrol 40 mg IV daily. 5. Tamiflu 75 mg b.i.d. 6. Aspirin 81 mg daily. 7. Lipitor 80 mg at bedtime. 8. QVAR 80 mcg 2 puffs b.i.d. 9. Symbicort 160/4.5 two puffs p.o. b.i.d. 10. Flonase nasal spray 1 spray in each nostril b.i.d. 11. Claritin 10 mg at bedtime. 12. Paxil 10 mg q.h.s. 13. Ranitidine 150 mg b.i.d. 14. Protonix 40 mg b.i.d. 15. Zofran 6 mg IV q. 6 hours p.r.n. for nausea. 16. DuoNeb nebulizers q.i.d. p.r.n. 17. Sublingual nitroglycerin as needed. 18. She is currently on supplemental oxygen at 2 liters per minute via nasal cannula. PHYSICAL EXAMINATION: GENERAL: The patient is in no acute distress. HEENT: Head is atraumatic, normocephalic. EOMs intact. Sclerae are anicteric. Face is symmetric. No perioral cyanosis. Mucous membranes are moist. NECK: Without JVD. CHEST AND LUNGS: With scattered inspiratory and expiratory wheezes, more prominent on the right lung phelps. No rales or crackles. Some of the wheeze is clear with coughing. No accessory muscle use. Normal diaphragmatic excursion. CARDIOVASCULAR: S1 and S2 are regular, borderline tachycardia without obvious murmur, gallop or rub. PMI is nondisplaced. No lifts, heaves, or thrills. No abdominal, aortic or renal bruits. ABDOMEN: Bowel sounds present. EXTREMITIES: Without clubbing, no cyanosis or edema. NEUROLOGIC: The patient is awake, alert, and oriented. Pleasant and cooperative. Answers questions appropriately. Speech is clear. Normal movement in all 4 extremities. Gait pattern not assessed. ASSESSMENT: 1. Acute exacerbation of Asthma secondary to Influenza A. 2. Ulcerative laryngitis. 3. Intermittent Hypoxemia requiring supplemental O2. 4. Tested positive for influenza A. 5. History of laryngopharyngeal reflux, on H2 antagonist and proton pump inhibitor. 6. CAD s/p OM1 stents x 2 in 2016. Otherwise normal coronaries at that time. 7. Intermittent tachycardia, likely secondary to hyperadrenergic state, corticosteroids, and beta agonist medication. 8. History of Sjogren's syndrome. 9. History of carcinoid tumor of the appendix status post appendectomy. 10. Diagnoses as mentioned above. PLAN: 1. The patient feels as though her respiratory status has improved dramatically, but she was still hypoxemic last evening, and still require supplemental oxygen. 2. Her air movement through the lung sounds like it has improved, although she still has significant wheezing. 3. Continue nebulizers and inhalers as directed. 4. Continue Solu-Medrol 40 mg IV daily. 5. Continue Tamiflu 75 mg b.i.d. for a total of 5 days. 6. Continue nebulizers as needed. 7. 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 8. Continue diltiazem CD 120 mg daily. 9. Continue Singulair 10 mg daily. 10. Continue high intensity Lipitor 80 mg daily. 11. Continue to monitor overnight due to tenuous respiratory status, and episode of hypoxemia last evening. Continue to monitor serial O2 saturation. 12. We will continue to follow. MARKD
[2018-01-03] MEDS: LORATADINE 10 MG TAB PO SCH (20:07)
[2018-01-03] MEDS: PAROXETINE 20 MG TAB PO SCH (20:08)
[2018-01-03] MEDS: ASPIRIN 81 MG ECTAB PO SCH (20:08)
[2018-01-03] MEDS: ATORVASTATIN 40 MG TAB PO SCH (20:11)
[2018-01-03 23:05] VITALS: BP 124/79; PULSE 82; TEMP 37; O2SAT 94
[2018-01-04] MEDS: OSELTAMIVIR PHOSPHATE 75 MG CAP PO SCH (06:22)
[2018-01-04 06:59] VITALS: BP 130/87; PULSE 78; TEMP 36.9; O2SAT 96
[2018-01-04 08:42] VITALS: BP 125/76; PULSE 109
[2018-01-04] MEDS: METHYLPREDNISOLONE IV 40 MG in SYRINGE 0 ML IV SCH (08:43)
[2018-01-04] MEDS: BUDESONIDE/FORMOTEROL FUMARATE 160/4.5 60 PUFFS/INHALER INH SCH (08:43)
[2018-01-04] MEDS: RANITIDINE HCL 150 MG TAB PO SCH (08:43)
[2018-01-04] MEDS: BECLOMETHASONE DIP HFA 80 MCG 8.7G INH INH SCH (08:43)
[2018-01-04] MEDS: MONTELUKAST SOD 10 MG TAB PO SCH (08:44)
[2018-01-04] MEDS: CLOPIDOGREL BISULFATE 75 MG TAB PO SCH (08:44)
[2018-01-04] MEDS: DILTIAZEM HCL 120 MG CAPCR PO SCH (08:44)
[2018-01-04] MEDS: PANTOprazole SOD 40 MG TAB PO SCH (08:44)
[2018-01-04] MEDS: FLUTICASONE PROPIONATE NA SPR 16 GM BTL NAE SCH (08:44)
[2018-01-04 08:58] VITALS: PULSE 104; O2SAT 93
[2018-01-04] MEDS: ALBUT/IPRATROP 3MG/0.5MG NEB 3 ML VIAL INH PRN (08:58)
[2018-01-04] MEDS ORDERED: PRED10TA PO (09:51)
[2018-01-04] MEDS ORDERED: TMF75 PO (09:51)
--- NOTE | 2018-01-04 09:54 | Discharge Instructions ---
Discharge Instructions Date of Service Jan 04, 2018. Admission Reason for Admission: Acute Asthma Exacerbation,Status Asthmaticus Discharge Discharge Diagnosis / Problem: Influenza A, asthma exacerbation Discharge Goals Goal(s): Decrease discomfort, Improve function, Improve disease control, Learn about illness, Diagnostic testing, Therapeutic intervention, Prevent Disease Progression Activity Recommendations Activity Limitations: resume your previous activity . Instructions / Follow-Up Instructions / Follow-Up Influenza A (the flu): Tamiflu twice daily until prescription is completed- begin this medication tonight (01/04) Asthma Exacerbation: Continue regular home medications/inhalers Prednisone 40 mg x3 days (01/05, 01/06, 01/07), 30 mg x2 days (01/08, 01/09), 20 mg x2 days (01/10, 01/11) Resume all other regular home medications as prescribed FOLLOW-UPS: Please follow-up with your PCP within 5-7 days Please follow-up/keep all of your subspecialty appointments Current Hospital Diet Patient's current hospital diet: AHA Diet (Heart Healthy) Discharge Diet Recommended Diet: AHA Diet (Heart Healthy) Pending Studies Studies pending at discharge: no Work Instructions Return To Work: 2 days (On Thursday, 01/06) Medical Emergencies . Who to Call and When: Medical Emergencies: If at any time you feel your situation is an emergency, please call 911 immediately. . Non-Emergent Contact Non-Emergency issues call your: Primary Care Provider Call Non-Emergent contact if: you have a fever, you have any medication questions . . "Provider Documentation" section prepared by Radha Simpson. . VTE Core Measure Inpt VTE Proph given/why not?: SCD's (patient ambulating)
--- NOTE | 2018-01-04 10:06 | Discharge Summary ---
Discharge Summary Date of Service Jan 04, 2018. Discharge Summary Admission Date: Jan 02, 2018 at 14:15 Discharge Date: Jan 04, 2018 Discharge Disposition: Home Principal Diagnosis: Influenza A, asthma exacerbation Problems/Secondary Diagnoses: h/o laryngopharyngeal reflux and ulcerative laryngitis Influenza A acute asthma exacerbation CAD s/p NSTEMI w/ cardiac stenting Anxiety h/o Sjogren GERD Immunizations: Have You Had Influenza Vaccine: Yes Influenza Vaccine Date: Nov 03, 2012 History of Tetanus Vaccine?: Yes History of Pneumococcal: No History of Hepatitis B Vaccine: No Procedures: CHEST ONE VIEW PORTABLE HISTORY: Acute asthma COMPARISON: Chest 10/29/2017. FINDINGS: The lungs are clear. Cardiac silhouette is normal in size. No pleural effusions. No pneumothorax. IMPRESSION: No acute process. Electronically signed by: Mookie Park M.D. 01/02/2018 11:39 AM Dictated Date/Time: 01/02/2018 11:38 AM The status of this report is Signed. Draft = Not yet reviewed or approved by Radiologist. Signed = Reviewed and approved by Radiologist. Medication Reconciliation New Medications: Prednisone Tab (Prednisone) 10 Mg Tab 10 MG PO UD for 7 Days, #22 TAB 40 mg x3 days, 30 mg x2 days, 20 mg x2 days Oseltamivir Phosphate (Tamiflu) 75 Mg Cap 75 MG PO BID for 4 Days, #7 CAP Continued Medications: Albuterol Sulf (Proventil 0.083% 2.5MG/3ML) 2.5 Mg/3 Ml Nebu 2.5 MG INH UD PRN for Shortness of Breath, EA Aspirin (Aspirin Ec) 81 Mg Tab 81 MG PO QPM Atorvastatin (Lipitor) 80 Mg Tab 80 MG PO HS, TAB Beclomethasone Dip (Qvar) 80 Mcg/Act Aer Unknown Dose INH BID Budesonide/Formoterol Fumarate (Symbicort 160/4.5 Inhaler ) Aero 2 PUFFS INH BID, INHALER Cholecalciferol (Vitamin D) 1,000 Unit Tab 1 TAB PO QAM Clopidogrel (Plavix) 75 Mg Tab 75 MG PO QAM Diltiazem Hcl Coated Beads (Diltiazem Hcl Er) 120 Mg Cap 120 MG PO QAM Epinephrine (Epipen 2-Serjio) 0.3 Mg Inj 0.3 MG INJ UD Fluticasone Propionate (Nasal) (Allergy Nasal [place] 24 Ho) 50 Mcg/Act Spr 2 SPRAY JETT BID Ipratropium-Albuterol (Duoneb) 3 Ml Nebu 3 ML NEB QID PRN for Asthma Symptoms Loratadine (Claritin) 10 Mg Tab 10 MG PO QPM, TAB Mepolizumab (Nucala) 100 Mg Inj 1 DOSE INJ MONTHLY Montelukast Sodium (Singulair) 10 Mg Tab 10 MG PO QAM Nitroglycerin (Nitrostat) 0.4 Mg Tab 0.4 MG UT UD PRN for Chest Pain Pantoprazole Sodium (Protonix) 20 Mg Tab 20 MG PO BID Paroxetine Hcl (Paxil) 10 Mg Tab 10 MG PO HS, TAB Ranitidine HCl (Ranitidine HCl) 150 Mg Tab 150 MG PO BID Tiotropium [place] (Spiriva Respimat) 2.5 Mcg/Act Spr 2 PUFF INH QAM, INHALER Discontinued Medications: Prednisone Tab (Prednisone) 10 Mg Tab 30 MG PO DAILY, TAB TAPERING DOSE CURRENTLY. Referrals At Discharge Follow up Referrals: Family Practice Referral - Within 1 Week with Uma Ocampo M.D. Discharge Exam Review of Systems: Constitutional: No fever, No chills, No sweats, No weakness, No fatigue Eyes: No worsening of vision ENT: No hearing loss Respiratory: No cough, No shortness of breath, No hemoptysis Cardiovascular: No chest pain, No edema, No palpitations Abdomen: No pain, No nausea, No vomiting, No diarrhea, No constipation Musculoskeletal: No joint pain, No muscle pain, No swelling, No calf pain Genitourinary - Female: No dysuria Neurologic: No weakness, No numbness/tingling Psychiatric: No depression symptoms, No anxiety Endocrine: No fatigue Hematologic / Lymphatic: No abnormal bleeding/bruising Integumentary: No rash, No itch, No new/changing skin lesions Physical Exam: General Appearance: no apparent distress Eyes: normal inspection, PERRL ENT: hearing grossly normal Neck: supple Respiratory/Chest: lungs clear, no respiratory distress, no accessory muscle use Cardiovascular: regular rate, rhythm Abdomen / GI: normal bowel sounds, non tender, soft Extremities: no calf tenderness, no pedal edema Neurologic/Psychiatric: alert, normal mood/affect, oriented x 3 Skin: normal color, warm/dry, no rash Hospital Course Asthma exacerbation secondary to Influenza in a 52 yo female with h/o Asthma, Ulcerative laryngitis Influenza A, acute asthma exacerbation: - Admit to med/sug - Tamiflu BID x5 days - DuoNebs QID and PRN for SOB/wheezing - Continue Albuterol, Qvar, Symbicort, Spiriva, Claritin, Nucala, - IV Solu Medrol 40 mg daily- Prednisone taper at discharge CAD s/p NSTEMI w/ cardiac stenting: Continue Plavix, ASA, Lipitor, Diltiazem Anxiety: Continue Paxil h/o Sjogren- noted GERD: Protonix + Zantac DVT prophylaxis: Ambulation Code status: LEVEL I, FULL Dispo: Discharge to home Total Time Spent: Greater than 30 minutes This includes examination of the patient, discharge planning, medication reconciliation, and communication with other providers. Discharge Instructions Please refer to the electronic Patient Visit Report (Discharge Instructions) for additional information. Follow-Up Please follow-up with your PCP within 5-7 days Please follow-up/keep all of your subspecialty appointments Additional Copies To Uma Ocampo M.D.
[2018-01-04 12:22] VITALS: BP 125/76; PULSE 104; TEMP 36.9; O2SAT 93
== END 2018-01-04 14:00 | disposition home or self-care (01) ==
LOC: C.EDB 10:49 → C.MS2W 14:15 → UNDOADMOB 14:15 → EDBEDREQ 14:43 → ENRESERV 15:04
PROVIDERS: ADMIT Internal Medicine Sports Medicine; ATTEND Internal Medicine
DX: J10.1 Influenza due to other identified influenza virus with other respiratory manifestations (principal); J45.901 Unspecified asthma with (acute) exacerbation; I25.10 Atherosclerotic heart disease of native coronary artery without angina pectoris; F41.9 Anxiety disorder, unspecified; K21.9 Gastro-esophageal reflux disease without esophagitis; Z79.82 Long term (current) use of aspirin; Z79.899 Other long term (current) drug therapy; E78.5 Hyperlipidemia, unspecified; I10 Essential (primary) hypertension; E03.9 Hypothyroidism, unspecified; I25.2 Old myocardial infarction; Z90.89 Acquired absence of other organs; Z83.3 Family history of diabetes mellitus; Z82.49 Family history of ischemic heart disease and other diseases of the circulatory system; Z80.8 Family history of malignant neoplasm of other organs or systems

== ENCOUNTER → 2018-01-22 | Outpatient (CLI) | payer OTHER ==
[~2018-01-22] MED LIST changes: +ALBINS/ INH; -ALBU2SYP9 INH; +PARO10TA PO; -PRED10TA PO; +QVRINH80 INH; +TMF75 PO
[2018-01-22 14:41] LABS: HEMATOCRIT 39.1 % (37-47); HEMOGLOBIN 12.7 g/dL (12.0-16.0); MEAN CELL VOLUME 89.5 fL (80-100); MEAN CORPUSCULAR HEMOGLOBIN 29.1 pg (25-34); MEAN CORPUSCULAR HGB CONC 32.5 g/dl (32-36); MEAN PLATELET VOLUME 11.3 fL (7.4-10.4); PLATELET COUNT 194 K/uL (130-400); RED CELL DISTRIBUTION WIDTH CV 13.9 % (11.5-14.5); RED CELL DISTRIBUTION WIDTH SD 45.8 fL (36.4-46.3); WHITE BLOOD COUNT 3.28 K/uL (4.8-10.8)
[2018-01-22 14:59] LABS: ALBUMIN 3.7 gm/dl (3.4-5.0); ALT/SGPT 45 U/L (12-78); BLOOD UREA NITROGEN 15 mg/dl (7-18); CALCIUM 9.1 mg/dl (8.5-10.1); CARBON DIOXIDE 30 mmol/L (21-32); CREATININE 0.98 mg/dl (0.60-1.20); GLUCOSE 90 mg/dl (70-99); POTASSIUM 3.8 mmol/L (3.5-5.1); SODIUM 141 mmol/L (136-145)
[2018-01-22 15:02] LABS: ALKALINE PHOSPHATASE 88 U/L (45-117); AST/SGOT 26 U/L (15-37)
== END | disposition home or self-care (01) ==
LOC: C.LAB1850 13:49
PROVIDERS: ATTEND Internal Medicine Cardiovascular Disease
DX: E87.6 Hypokalemia (principal); R00.0 Tachycardia, unspecified; I25.10 Atherosclerotic heart disease of native coronary artery without angina pectoris; I10 Essential (primary) hypertension

== ENCOUNTER 2018-02-01 02:07 | Emergency (ER) | payer OTHER ==
[~2018-02-01] VITALS: Ht 177.8 cm; Wt 89.9 kg
[2018-02-01 02:12] VITALS: TEMP 36.6; Ht 177.8 cm; Wt 89.9 kg
[2018-02-01] MEDS ORDERED: ALBUT/IPRATROP 3MG/0.5MG NEB 3 ML VIAL INH ONE (02:30)
[2018-02-01 02:35] VITALS: O2SAT 98
[2018-02-01 02:40] VITALS: PULSE 98; O2SAT 96
[2018-02-01] MEDS ORDERED: PRED20TA2 PO (03:52)
[2018-02-01 04:02] VITALS: BP 126/88; PULSE 106; O2SAT 95
--- NOTE | 2018-02-02 21:17 | EMERGENCY ROOM VISIT NOTE ---
History First contact with patient: 02:17 Chief Complaint: RESPIRATORY PROBLEMS Stated Complaint: ASTHMA Nursing Triage Summary: sob since 1999. hx asthma History of Present Illness The patient is a 52 year old female who presents to the Emergency Room with complaints of worsening shortness of breath symptoms that began about 6 hours prior to arrival. The patient is well-known to the ER due to a past history of severe asthma. She has been admitted in the past for asthma exacerbations. She states this feels typical of her usual asthma flares, and is no longer having improvement with her inhalers. She has not had fever or chills. She does not have other complaints. She rates her discomfort as 7/10. Review of Systems More than 10 systems were reviewed and otherwise negative with the exception of history of present illness. 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 (7) Non-STEMI (non-ST elevated myocardial infarction) (8) Uterine Leiomyoma Nos Surgical Problems: (1) History of appendectomy (2) History of heart catheterization (3) History of hemicolectomy Family History Diabetes mellitus Heart disease Hypertension Social History Smoking Status: Never Smoker Alcohol Use: none Drug Use: none Marital Status: Housing Status: lives with family Occupation Status: employed Current/Historical Medications Scheduled Aspirin (Aspirin Ec), 81 MG PO QPM Atorvastatin (Lipitor), 80 MG PO HS Beclomethasone Dip (Qvar), Unknown Dose INH BID Budesonide/Formoterol Fumarate (Symbicort 160/4.5 Inhaler ), 2 PUFFS INH BID Cholecalciferol (Vitamin D), 1 TAB PO QAM Clopidogrel (Plavix), 75 MG PO QAM Diltiazem Hcl Coated Beads (Diltiazem Hcl Er), 120 MG PO QAM Epinephrine (Epipen 2-Serjio), 0.3 MG INJ UD Fluticasone Propionate (Nasal) (Allergy Nasal [place] 24 Ho), 2 SPRAY JETT BID Loratadine (Claritin), 10 MG PO QPM Mepolizumab (Nucala), 1 DOSE INJ MONTHLY Montelukast Sodium (Singulair), 10 MG PO QAM Oseltamivir Phosphate (Tamiflu), 75 MG PO BID Pantoprazole Sodium (Protonix), 20 MG PO BID Paroxetine Hcl (Paxil), 10 MG PO HS Prednisone (Prednisone Tab), 2 TAB PO DAILY Ranitidine HCl (Ranitidine HCl), 150 MG PO BID Tiotropium [place] (Spiriva Respimat), 2 PUFF INH QAM Scheduled PRN Albuterol Sulf (Proventil 0.083% 2.5MG/3ML), 2.5 MG INH UD PRN for Shortness of Breath Ipratropium-Albuterol (Duoneb), 3 ML NEB QID PRN for Asthma Symptoms Nitroglycerin (Nitrostat), 0.4 MG UT UD PRN for Chest Pain Physical Exam Vital Signs Date Time Temp Pulse Resp B/P (MAP) Pulse Ox O2 Delivery O2 Flow Rate FiO2 02/01/18 04:02 106 20 126/88 95 02/01/18 03:12 95 20 128/91 98 Nebulizer 8.0 02/01/18 02:46 104 02/01/18 02:40 98 16 96 Room Air 02/01/18 02:35 98 Room Air 02/01/18 02:31 95 Room Air 02/01/18 02:12 36.6 99 24 141/101 94 Room Air Physical Exam VITALS: Vitals are noted on the nurse's note and reviewed by myself. Vital signs stable. GENERAL: Well-developed, well-nourished, black female who is in mild distress and audibly wheezing on my arrival to the room HEART: Regular rate and rhythm without murmurs gallops or rubs. LUNGS: Diffuse wheezing and rhonchi throughout with poor inspiratory effort NEURO: Patient was alert and oriented to person place and time. CN II through XII grossly intact. Medical Decision & Procedures Medications Administered Medications (Trade) Dose Ordered Sig/Donaldo Route Start Time Stop Time Status Last Admin Dose Admin Prednisone (PredniSONE TAB) 60 mg NOW STAT PO 02/01/18 02:22 02/01/18 02:24 DC 02/01/18 02:30 60 MG Albuterol/ Ipratropium (Duoneb) 12 ml NOW ONCE INH 02/01/18 02:30 02/01/18 02:31 DC 02/01/18 02:36 12 ML ED Course Physical exam and history were performed. Nursing notes, EMR, and Medication List were personally reviewed. Patient appears to be having an asthma exacerbation. She has a history of this. The patient was given a dose of oral prednisone here in the department as well as a 1 hour DuoNeb. On repeat evaluation the patient had significant improvement of her lung sounds and much improved air exchange. She only had mild wheezing after re-auscultation. I discussed options of care with the patient, who feels comfortable and safe for discharge home. I will give her a continuation course of some steroids and have her follow with her PCP and analytical statistician. She was otherwise invited back to the ER with any new, worsening , or concerning symptoms. The chart was completed utilizing [employer] Speech Voice Recognition Software. Grammatical errors, random word insertions, pronoun errors, and incomplete sentences are an occasional consequence of this system due to software limitations, ambient noise, and hardware issues. Any formal questions or concerns about the content, text, or information contained within the body of this dictation should be directly addressed to the provider for clarification. . Medical Decision Differential diagnosis: Etiologies such as infections, reactive airway disease, pneumonia, pneumothorax , COPD, CHF, cardiac ischemia, pulmonary embolism, musculoskeletal, gastrointestinal, as well as others were entertained. Impression Primary Impression: Acute asthma exacerbation Departure Information Dispostion Home / Self-Care Condition GOOD Prescriptions Prednisone (Prednisone Tab) 20 Mg Tab 2 TAB PO DAILY for 4 Days, #8 TAB Prov: Ramesh Vines PA-C 02/01/18 Referrals Uma Ocampo M.D. (PCP) [place] PA-C (Family) Forms WORK / SCHOOL INSTRUCTIONS, HOME CARE DOCUMENTATION FORM, IMPORTANT VISIT INFORMATION Patient Instructions My [facility] Additional Instructions You were seen and evaluated today on an emergency basis only. This is not a substitute for, or an effort to provide, complete comprehensive medical care. It is not possible to recognize and treat all injuries or illnesses in a single emergency department visit. For this reason it is recommended that you followup with your primary care physician/registration specialist for ongoing care and evaluation. Take prednisone 50 mg daily for the next 4 days. Continue your at-home inhalers. You are welcome to return to the emergency department anytime with new, worsening, or concerning symptoms.
== END 2018-02-01 04:03 | disposition home or self-care (01) ==
LOC: C.EDB 02:08
DX: J45.901 Unspecified asthma with (acute) exacerbation (principal); I10 Essential (primary) hypertension; E78.5 Hyperlipidemia, unspecified; E03.9 Hypothyroidism, unspecified; Z79.82 Long term (current) use of aspirin; Z79.02 Long term (current) use of antithrombotics/antiplatelets; I25.2 Old myocardial infarction; Z98.890 Other specified postprocedural states; Z85.09 Personal history of malignant neoplasm of other digestive organs; Z87.42 Personal history of other diseases of the female genital tract; Z83.3 Family history of diabetes mellitus; Z82.49 Family history of ischemic heart disease and other diseases of the circulatory system

== ENCOUNTER → 2018-02-08 | Outpatient (CLI) | payer OTHER ==
[~2018-02-08] MED LIST changes: +GADAVIST IV PRN; +PRED50TA PO
--- NOTE | 2018-02-08 20:56 | DIAGNOSTIC IMAGING REPORT ---
NECK MRA HISTORY: H93.A2 Pulsatile tinnitus of left earM54.2 left-sided neck pain. Blurred vision, dizziness. TECHNIQUE: [id number] and gadolinium-enhanced MRA of the neck was performed both before and after the intravenous administration of contrast. All measurements were calculated based on NASCET criteria. COMPARISON STUDY: Carotid Doppler ultrasound dated 08/14/2017 FINDINGS: The aortic arch and proximal great vessels are widely patent. There is no significant stenosis, occlusion, or dissection identified within the bilateral common carotid, internal carotid, or vertebral arteries. IMPRESSION: No significant stenosis, occlusion, or dissection identified within the carotid or vertebral arteries. Electronically signed by: Ancelmo Wayne M.D. 02/08/2018 8:54 PM Dictated Date/Time: 02/08/2018 8:52 PM
== END | disposition home or self-care (01) ==
LOC: C.MRI 20:05
PROVIDERS: ATTEND Psychiatry & Neurology Neurology
DX: H93.A2 Pulsatile tinnitus, left ear (principal); M54.2 Cervicalgia

== ENCOUNTER 2018-02-25 04:37 | Emergency (ER) | payer OTHER ==
[~2018-02-25] VITALS: Ht 177.8 cm; Wt 89.6 kg
[~2018-02-25 04:37] MED LIST changes: -GADAVIST IV PRN; -PRED50TA PO
[2018-02-25 04:38] VITALS: TEMP 36.7; Ht 177.8 cm; Wt 89.6 kg
[2018-02-25] MEDS ORDERED: ALBUT/IPRATROP 3MG/0.5MG NEB 3 ML VIAL ONE (04:48)
[2018-02-25] MEDS ORDERED: ALBUT/IPRATROP 3MG/0.5MG NEB 3 ML VIAL INH STA (04:48)
[2018-02-25] MEDS ORDERED: DEXAMETHASONE **PF** INJ 10 MG/ML VIAL ONE (04:48)
[2018-02-25] MEDS ORDERED: ALBUT/IPRATROP 3MG/0.5MG NEB 3 ML VIAL INH ONE (05:00)
[2018-02-25] MEDS ORDERED: DEXAMETHASONE **PF** INJ 10 MG/ML VIAL IV ONE (05:00)
[2018-02-25 05:03] VITALS: PULSE 120; O2SAT 93
[2018-02-25 05:06] LABS: BASO % 0.2 %; BASO ABS # 0.01 K/uL (0-0.2); EOS % 0.9 %; EOS ABS # 0.05 K/uL (0-0.5); HEMATOCRIT 40.4 % (37-47); HEMOGLOBIN 13.6 g/dL (12.0-16.0); IG# 0.01 K/uL (0.00-0.02); LYMPH % 38.1 %; LYMPH ABS # 2.12 K/uL (1.2-3.4); MEAN CELL VOLUME 86.1 fL (80-100); MEAN CORPUSCULAR HGB CONC 33.7 g/dl (32-36); MEAN PLATELET VOLUME 10.3 fL (7.4-10.4); MONO % 10.1 %; MONO ABS # 0.56 K/uL (0.11-0.59); NEUT % 50.5 %; NEUT ABS # 2.81 K/uL (1.4-6.5); PLATELET COUNT 258 K/uL (130-400); RED CELL DISTRIBUTION WIDTH SD 46.8 fL (36.4-46.3); WHITE BLOOD COUNT 5.56 K/uL (4.8-10.8)
[2018-02-25 05:22] LABS: CALCIUM 9.2 mg/dl (8.5-10.1); CREATININE 1.27 mg/dl (0.60-1.20); POTASSIUM 3.4 mmol/L (3.5-5.1)
[2018-02-25 05:43] VITALS: O2SAT 98
[2018-02-25 06:19] VITALS: BP 125/84; PULSE 107
--- NOTE | 2018-02-25 06:34 | EMERGENCY ROOM VISIT NOTE ---
History First contact with patient: 04:43 Chief Complaint: RESPIRATORY PROBLEMS Stated Complaint: RESP. History of Present Illness The patient is a 52 year old female who presents to the Emergency Room with complaints of cough and wheezing difficulty breathing for the past several hours. Patient has severe asthma has been hospitalized multiple times. Dr. Abdalla is her fortune teller. She saw him last month. No recent change in her medications. Patient denies chest pain, productive cough, recent illness, abdominal pain, flulike illness. Review of Systems An 10 system review of systems was completed with positives and pertinent negatives listed in the HPI. 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 (7) Non-STEMI (non-ST elevated myocardial infarction) (8) Uterine Leiomyoma Nos Surgical Problems: (1) History of appendectomy (2) History of heart catheterization (3) History of hemicolectomy Family History Diabetes mellitus Heart disease Hypertension Social History Smoking Status: Never Smoker Alcohol Use: none Drug Use: none Marital Status: Housing Status: lives with family Occupation Status: employed Current/Historical Medications Scheduled Aspirin (Aspirin Ec), 81 MG PO QPM Atorvastatin (Lipitor), 80 MG PO HS Beclomethasone Dip (Qvar), Unknown Dose INH BID Budesonide/Formoterol Fumarate (Symbicort 160/4.5 Inhaler ), 2 PUFFS INH BID Cholecalciferol (Vitamin D), 1 TAB PO QAM Clopidogrel (Plavix), 75 MG PO QAM Diltiazem Hcl Coated Beads (Diltiazem Hcl Er), 120 MG PO QAM Epinephrine (Epipen 2-Serjio), 0.3 MG INJ UD Fluticasone Propionate (Nasal) (Allergy Nasal [place] 24 Ho), 2 SPRAY JETT BID Loratadine (Claritin), 10 MG PO QPM Mepolizumab (Nucala), 1 DOSE INJ MONTHLY Montelukast Sodium (Singulair), 10 MG PO QAM Oseltamivir Phosphate (Tamiflu), 75 MG PO BID Pantoprazole Sodium (Protonix), 20 MG PO BID Paroxetine Hcl (Paxil), 10 MG PO HS Ranitidine HCl (Ranitidine HCl), 150 MG PO BID Tiotropium [place] (Spiriva Respimat), 2 PUFF INH QAM Scheduled PRN Albuterol Sulf (Proventil 0.083% 2.5MG/3ML), 2.5 MG INH UD PRN for Shortness of Breath Ipratropium-Albuterol (Duoneb), 3 ML NEB QID PRN for Asthma Symptoms Nitroglycerin (Nitrostat), 0.4 MG UT UD PRN for Chest Pain Physical Exam Vital Signs Date Time Temp Pulse Resp B/P (MAP) Pulse Ox O2 Delivery O2 Flow Rate FiO2 02/25/18 06:19 107 18 125/84 94 Room Air 02/25/18 05:43 98 02/25/18 05:03 120 16 93 Room Air 21 02/25/18 04:52 99 Room Air 02/25/18 04:38 36.7 116 26 139/84 95 Room Air Physical Exam PHYSICAL EXAM: Vital Signs: Reviewed Nurse's notes. Oxygen saturation was 95% on room air. GENERAL: Pleasant female with audible wheeze, Alert, oriented and coherent. The patient is not able to speak in complete sentences. NECK: Supple , non-tender. CHEST: Symmetrical expansion. + retractions + accessory muscle use. HEART: Regular rate and normal heart sounds, no murmur, gallop or rub. LUNGS: Breath sounds equal but significantly diminished in intensity on both sides. Bilateral wheezes heard but no rales or pleuritic rub. SKIN: The skin was without rashes, erythema, edema, or bruising. There is no tenting of the skin. Capillary reflex less than 2 seconds. HEAD: Normocephalic atraumatic. EARS: External auditory canals clear, tympanic membranes pearly randolph without erythema or effusion bilaterally. EYES: Pupils equal round and reactive to light and accommodation. Conjunctivae without injection, sclerae without icterus. Extraocular movements intact. NOSE: Patent, turbinates without inflammation or discharge. No sinus tenderness. MOUTH: Mucous membranes moist. Pharynx without erythema or exudate. Uvula midline. Airway patent. Tongue does not deviate. ABDOMEN: Positive bowel sounds x 4. Normal tympanic percussion. Soft, nontender, without masses or organomegaly. Ramirez sign negative. No guarding or rebound tenderness. MUSCULOSKELETAL: No muscle atrophy, erythema, or edema noted. NEURO: Patient was alert and oriented to person place and time. Normal sensation to light and sharp touch. No focal neurological deficits. Medical Decision & Procedures Laboratory Results 02/25/18 04:55 Red Blood Count 4.69, Mean Corpuscular Volume 86.1, Mean Corpuscular Hemoglobin 29.0, Mean Corpuscular Hemoglobin Concent 33.7, Mean Platelet Volume 10.3, Neutrophils (%) (Auto) 50.5, Lymphocytes (%) (Auto) 38.1, Monocytes (%) (Auto) 10.1, Eosinophils (%) (Auto) 0.9, Basophils (%) (Auto) 0.2, Neutrophils # (Auto ) 2.81, Lymphocytes # (Auto) 2.12, Monocytes # (Auto) 0.56, Eosinophils # (Auto ) 0.05, Basophils # (Auto) 0.01 02/25/18 04:55 Test 02/25/18 04:55 White Blood Count 5.56 K/uL (4.8-10.8) Red Blood Count 4.69 M/uL (4.2-5.4) Hemoglobin 13.6 g/dL (12.0-16.0) Hematocrit 40.4 % (37-47) Mean Corpuscular Volume 86.1 fL (80-100) Mean Corpuscular Hemoglobin 29.0 pg (25-34) Mean Corpuscular Hemoglobin Concent 33.7 g/dl (32-36) Platelet Count 258 K/uL (130-400) Mean Platelet Volume 10.3 fL (7.4-10.4) Neutrophils (%) (Auto) 50.5 % Lymphocytes (%) (Auto) 38.1 % Monocytes (%) (Auto) 10.1 % Eosinophils (%) (Auto) 0.9 % Basophils (%) (Auto) 0.2 % Neutrophils # (Auto) 2.81 K/uL (1.4-6.5) Lymphocytes # (Auto) 2.12 K/uL (1.2-3.4) Monocytes # (Auto) 0.56 K/uL (0.11-0.59) Eosinophils # (Auto) 0.05 K/uL (0-0.5) Basophils # (Auto) 0.01 K/uL (0-0.2) RDW Standard Deviation 46.8 fL (36.4-46.3) RDW Coefficient of Variation 15.0 % (11.5-14.5) Immature Granulocyte % (Auto) 0.2 % Immature Granulocyte # (Auto) 0.01 K/uL (0.00-0.02) Anion Gap 6.0 mmol/L (3-11) Est Creatinine Clear Calc Drug Dose 61.5 ml/min Estimated GFR () 55.4 Estimated GFR (Non- 47.8 BUN/Creatinine Ratio 13.8 (10-20) Calcium Level 9.2 mg/dl (8.5-10.1) Medications Administered Medications (Trade) Dose Ordered Sig/Donaldo Route Start Time Stop Time Status Last Admin Dose Admin Albuterol/ Ipratropium (Duoneb) 3 ml STK-MED ONCE .ROUTE 02/25/18 04:48 02/25/18 04:49 DC 02/25/18 04:48 3 ML Dexamethasone Sodium Phosphate (Dexamethasone Inj Pf) 10 mg STK-MED ONCE .ROUTE 02/25/18 04:48 02/25/18 04:49 DC 02/25/18 04:48 10 MG Albuterol/ Ipratropium (Duoneb) 12 ml ONE ONCE INH 02/25/18 05:00 02/25/18 05:01 DC 02/25/18 05:03 12 ML ED Course Prior records/ancillary studies reviewed. Triage Nursing notes reviewed. The patient's history was concerning for respiratory difficulties. Differential diagnosis: Etiologies such as infections, reactive airway disease, pneumonia, pneumothorax , COPD, CHF, cardiac ischemia, pulmonary embolism, musculoskeletal, gastrointestinal, as well as others were entertained. Physical examination: As above. ER treatment provided: Hour-long nebulizer, Decadron On reassessment the patient felt better. Diagnostic interpretation by me: The labs revealed stable H&H. This appears to be consistent with asthma exacerbation. Patient's been here multiple times for this. No signs of pneumonia. She was not sick. No fever. No productive cough. She is advised to follow-up with family care or her fortune teller in a few days here in the ER sooner for difficulty breathing, fevers, worsening signs or symptoms or as needed. By the evaluation outlined above emergent etiologies such as CHF, cardiac ischemia, pulmonary embolism, pneumonia, pneumothorax, musculoskeletal, serious bacterial infections, as well as others were deemed relatively unlikely. The pt informed about the findings as listed above. All questions were answered and pleased with the treatment. Return instructions were outlined and the patient was discharged in stable condition. Outpatient prescription management: Prednisone Referral: The patient was referred back to their primary care physician/fortune teller for follow-up in 2 to 3 days for a recheck of the current condition. Case reviewed with my attending The chart was completed utilizing [employer] Speech voice recognition software. Grammatical errors, random word insertions, pronoun errors, and incomplete sentences are an occassional consequence of this system due to software limitations, ambient noise, and hardware issues. Any formal questions or concerns about the content, text, or information contained within the body of this dictation should be directly addressed to the physician assistant general manager for clarification. Medical Decision As above Medication Reconcilliation Current Medication List: was personally reviewed by me Blood Pressure Screening Patient's blood pressure: Normal blood pressure Impression Primary Impression: Acute asthma exacerbation Departure Information Dispostion Home / Self-Care Condition GOOD Referrals Uma Ocampo M.D. (PCP) Patient Instructions My [facility] Additional Instructions Albuterol Inhaler: Take 2 puffs four times daily for five days, then as needed. Or Home nebulizers every 4 hours Prednisone 50mg: Once daily until the prescription is finished. It is best to take this earlier in the day as some patients note occasional difficulty falling asleep when taken in the late evening. Acetaminophen(Tylenol) may be used for fever or pain. Use 1000mg every six hours as needed. Avoid using more than 3000mg in a 24 hour period. (AND/OR) Ibuprofen(Motrin, Advil) may be used for fever or pain. Use 600mg every six hours as needed. Take with food. Avoid using more than 2400mg in a 24 hour period. Do not use 2400mg per day for more than three consecutive days without physician direction. Prolonged inappropriate use can lead to stomach upset or ulcers. Rest and drink plenty of fluids. Avoid smoke/smoking, fumes, dust, or any triggers in the past that may have affected your breathing. Continue current medications. Return to the ER for chest pain, difficulty breathing, fevers, vomiting, worsening of your condition, or as needed. Follow up with your primary physician/fortune teller this week for a recheck of your current condition. Problem Qualifiers Primary Impression: Acute asthma exacerbation Asthma severity: moderate Asthma persistence: persistent Qualified Codes: J45.41 - Moderate persistent asthma with (acute) exacerbation
[2018-02-25] MEDS ORDERED: PRED50TA PO (06:35)
[2018-02-25 06:39] VITALS: O2SAT 94
== END 2018-02-25 06:40 | disposition home or self-care (01) ==
LOC: C.EDB 04:38
DX: J45.51 Severe persistent asthma with (acute) exacerbation (principal); I10 Essential (primary) hypertension; Z79.899 Other long term (current) drug therapy

== ENCOUNTER → 2018-02-26 | Outpatient (CLI) | payer OTHER ==
[~2018-02-26] MED LIST changes: +PRED10TA; +PRED50TA PO
[2018-02-26 11:27] LABS: INFLUENZA A PCR Neg for Influ A (NEG); INFLUENZA B PCR Neg for Influ B (NEG)
== END | disposition home or self-care (01) ==
LOC: C.LAB1850 08:31
PROVIDERS: ATTEND Dermatology
DX: R05 Cough (principal)

== ENCOUNTER 2018-03-02 08:09 | Emergency (ER) | payer OTHER ==
[~2018-03-02] VITALS: Ht 177.8 cm; Wt 90.2 kg
[~2018-03-02 08:09] MED LIST changes: -PRED10TA
[2018-03-02 08:11] VITALS: Ht 177.8 cm; Wt 90.2 kg
[2018-03-02 08:20] VITALS: O2SAT 98
--- NOTE | 2018-03-02 08:39 | EMERGENCY ROOM VISIT NOTE ---
History First contact with patient: 08:22 Chief Complaint: CHEST PAIN Stated Complaint: CHEST PAIN History of Present Illness The patient is a 52 year old female with hx of OR in 2016 with stent placement, asthma and achalasia who presents to the Emergency Room with complaints of chest pain in center of chest that started this AM around 0800 after applying make up. Pain is sharp/stabbing in nature, 8/10 at its worst. Pt sat down for about 10 minutes but pain did not improve and presented to the ED. Now pain 6/ 10 and somewhat subdued. Pain worse when lying flat. A/w with stiffness in R shoulder, uncomfortable to take a deep breath. This pain is different than asthma symptoms. Denies HARPER/dizziness, n/v, abdominal pain, dysuria, pain in lower extremities. Denies any recent hospitalization/immobilization/travel. Review of Systems see below Constitutional: No fever Respiratory: + shortness of breath Cardiovascular: + chest pain Abdomen: No pain, No nausea, No vomiting, No diarrhea, No constipation Musculoskeletal: + problem reported (R shoulder pain ) Genitourinary - Female: No dysuria 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 (7) Non-STEMI (non-ST elevated myocardial infarction) (8) Uterine Leiomyoma Nos Surgical Problems: (1) History of appendectomy (2) History of heart catheterization (3) History of hemicolectomy Family History Diabetes mellitus Heart disease Hypertension Social History Smoking Status: Never Smoker Alcohol Use: none Drug Use: none Marital Status: Housing Status: lives with family Occupation Status: employed Current/Historical Medications Scheduled Aspirin (Aspirin Ec), 81 MG PO QPM Atorvastatin (Lipitor), 80 MG PO HS Budesonide/Formoterol Fumarate (Symbicort 160/4.5 Inhaler ), 2 PUFFS INH BID Cholecalciferol (Vitamin D), 1 TAB PO QAM Clopidogrel (Plavix), 75 MG PO QAM Diltiazem Hcl Coated Beads (Diltiazem Hcl Er), 120 MG PO QAM Epinephrine (Epipen 2-Serjio), 0.3 MG INJ UD Fluticasone Propionate (Nasal) (Allergy Nasal [place] 24 Ho), 2 SPRAY JETT BID Loratadine (Claritin), 10 MG PO QPM Mepolizumab (Nucala), 1 DOSE INJ MONTHLY Montelukast Sodium (Singulair), 10 MG PO QAM Pantoprazole Sodium (Protonix), 20 MG PO BID Paroxetine Hcl (Paxil), 10 MG PO HS Ranitidine HCl (Ranitidine HCl), 150 MG PO BID Tiotropium [place] (Spiriva Respimat), 2 PUFF INH QAM Scheduled PRN Albuterol Sulf (Proventil 0.083% 2.5MG/3ML), 2.5 MG INH UD PRN for Shortness of Breath Ipratropium-Albuterol (Duoneb), 3 ML NEB QID PRN for Asthma Symptoms Nitroglycerin (Nitrostat), 0.4 MG UT UD PRN for Chest Pain Miscellaneous Medications Prednisone (Prednisone) Physical Exam Vital Signs Date Time Temp Pulse Resp B/P (MAP) Pulse Ox O2 Delivery O2 Flow Rate FiO2 03/02/18 13:21 36.6 93 20 141/88 95 03/02/18 13:00 93 20 141/88 95 Room Air 03/02/18 12:26 92 145/86 95 03/02/18 11:01 145/84 03/02/18 11:00 93 20 93 03/02/18 09:24 110 16 95 03/02/18 09:21 158/96 03/02/18 09:09 111 12 96 03/02/18 09:01 147/86 03/02/18 08:54 108 38 97 03/02/18 08:45 98 Room Air 03/02/18 08:39 105 36 98 03/02/18 08:37 109 03/02/18 08:31 161/99 03/02/18 08:27 166/110 03/02/18 08:20 98 Room Air 03/02/18 08:11 36.6 70 18 151/89 99 Room Air Physical Exam see below General Appearance: + mild distress Head: normocephalic, atraumatic Eyes: normal inspection Neck: supple Respiratory/Chest: lungs clear, normal breath sounds Cardiovascular: no murmur, + tachycardia Abdomen / GI: normal bowel sounds, non tender, soft Back: normal inspection, + pertinent finding (No right shoulder TTP; reports pressure sensation only) Extremities: no calf tenderness, no pedal edema Neurologic/Psych: alert, oriented x 3 Medical Decision & Procedures Laboratory Results 03/02/18 08:26 Red Blood Count 4.61, Mean Corpuscular Volume 87.9, Mean Corpuscular Hemoglobin 29.5, Mean Corpuscular Hemoglobin Concent 33.6, Mean Platelet Volume 10.6, Neutrophils (%) (Auto) 59.6, Lymphocytes (%) (Auto) 30.7, Monocytes (%) (Auto) 8.9, Eosinophils (%) (Auto) 0.4, Basophils (%) (Auto) 0.2, Neutrophils # (Auto) 3.01, Lymphocytes # (Auto) 1.55, Monocytes # (Auto) 0.45, Eosinophils # (Auto) 0.02, Basophils # (Auto) 0.01 03/02/18 08:26 Test 03/02/18 08:26 03/02/18 10:47 White Blood Count 5.05 K/uL (4.8-10.8) Red Blood Count 4.61 M/uL (4.2-5.4) Hemoglobin 13.6 g/dL (12.0-16.0) Hematocrit 40.5 % (37-47) Mean Corpuscular Volume 87.9 fL (80-100) Mean Corpuscular Hemoglobin 29.5 pg (25-34) Mean Corpuscular Hemoglobin Concent 33.6 g/dl (32-36) Platelet Count 256 K/uL (130-400) Mean Platelet Volume 10.6 fL (7.4-10.4) Neutrophils (%) (Auto) 59.6 % Lymphocytes (%) (Auto) 30.7 % Monocytes (%) (Auto) 8.9 % Eosinophils (%) (Auto) 0.4 % Basophils (%) (Auto) 0.2 % Neutrophils # (Auto) 3.01 K/uL (1.4-6.5) Lymphocytes # (Auto) 1.55 K/uL (1.2-3.4) Monocytes # (Auto) 0.45 K/uL (0.11-0.59) Eosinophils # (Auto) 0.02 K/uL (0-0.5) Basophils # (Auto) 0.01 K/uL (0-0.2) RDW Standard Deviation 48.4 fL (36.4-46.3) RDW Coefficient of Variation 15.1 % (11.5-14.5) Immature Granulocyte % (Auto) 0.2 % Immature Granulocyte # (Auto) 0.01 K/uL (0.00-0.02) D-Dimer 360 ug/L FEU (0-500) Anion Gap 5.0 mmol/L (3-11) Est Creatinine Clear Calc Drug Dose 78.4 ml/min Estimated GFR () 74.0 Estimated GFR (Non- 63.8 BUN/Creatinine Ratio 15.7 (10-20) Calcium Level 9.2 mg/dl (8.5-10.1) Creatine Kinase MB 1.4 ng/ml (0.5-3.6) Creatine Kinase MB Ratio (0-3.0) Total Bilirubin 0.5 mg/dl (0.2-1) Direct Bilirubin 0.1 mg/dl (0-0.2) Aspartate Amino Transf (AST/SGOT) 15 U/L (15-37) Alanine Aminotransferase (ALT/SGPT) 31 U/L (12-78) Alkaline Phosphatase 58 U/L (45-117) Troponin I < 0.015 ng/ml (0-0.045) Total Protein 6.7 gm/dl (6.4-8.2) Albumin 3.6 gm/dl (3.4-5.0) Lipase 117 U/L (73-393) Medications Administered Medications (Trade) Dose Ordered Sig/Donaldo Route Start Time Stop Time Status Last Admin Dose Admin Nitroglycerin (Nitrostat Tab) 0.4 mg PRN PRN SL 03/02/18 08:45 04/01/18 08:44 03/02/18 09:08 0.4 MG Aspirin (Aspirin Chew) 324 mg NOW STAT PO 03/02/18 08:43 03/02/18 08:45 DC 03/02/18 08:56 324 MG Lidocaine HCl (Viscous Lidocaine 2% Soln) 10 ml NOW STAT PO 03/02/18 10:27 03/02/18 10:28 DC 03/02/18 11:56 10 ML Al Hydroxide/Mg Hydroxide (Maalox Susp) 30 ml NOW STAT PO 03/02/18 10:27 03/02/18 10:28 DC 03/02/18 11:57 30 ML Medical Decision 52y/oF with hx of NSTEMI in 2016 with stent placement, asthma and achalasia who presents with chest pain and sob that started this AM. Concerning for epigastric /subternal chest pain. No concern for NSTEMI, PE, cholecystitis or asthma exacerbation at this time based on work up below. Discharged home with Protonix 40mg BID and PCP follow up. Recommended pt contact tetryl boiling tub operator for further work up as needed. -Ordered EKG: sinus tachycardia [address] elevation or depression noted -Ordered CXR - negative -Ordered Troponin negative x 2 and CKMB normal at 1.4 -Ordered CBC, BMP, LFT, lipase - wnl -US gallbladder - unchanged from previous study; no gallbladder wall thickening ; 6mm gallbladder polyp, few small stones and sludge within gallbladder -Given aspirin at 08:43 and nitroglycerin 0.4mg x 3 Q5M at 08:45 -Given Maalox, Lidocaine 2% soln at 10:27 -Evaluated at 8:40 Medication Reconcilliation Current Medication List: was personally reviewed by me Blood Pressure Screening Patient's blood pressure: Elevated blood pressure Impression Primary Impression: Epigastric abdominal pain Additional Impression: Substernal chest pain Departure Information Dispostion Home / Self-Care Condition GOOD Referrals Uma Ocampo M.D. (PCP) Patient Instructions My [facility] [place] [employer] Additional Instructions Discharged with Protonix 40mg BID and PCP follow up in 1-2 days Contact tetryl boiling tub operator for any further work up for chest pain Problem Qualifiers
[2018-03-02] MEDS ORDERED: ASPIRIN 324 MG CHEW PO STA (08:43)
[2018-03-02 08:44] LABS: BASO % 0.2 %; BASO ABS # 0.01 K/uL (0-0.2); EOS % 0.4 %; EOS ABS # 0.02 K/uL (0-0.5); HEMATOCRIT 40.5 % (37-47); HEMOGLOBIN 13.6 g/dL (12.0-16.0); IG# 0.01 K/uL (0.00-0.02); LYMPH % 30.7 %; LYMPH ABS # 1.55 K/uL (1.2-3.4); MEAN CELL VOLUME 87.9 fL (80-100); MEAN CORPUSCULAR HEMOGLOBIN 29.5 pg (25-34); MEAN CORPUSCULAR HGB CONC 33.6 g/dl (32-36); MEAN PLATELET VOLUME 10.6 fL (7.4-10.4); MONO % 8.9 %; MONO ABS # 0.45 K/uL (0.11-0.59); NEUT % 59.6 %; NEUT ABS # 3.01 K/uL (1.4-6.5); PLATELET COUNT 256 K/uL (130-400); RED CELL DISTRIBUTION WIDTH CV 15.1 % (11.5-14.5); RED CELL DISTRIBUTION WIDTH SD 48.4 fL (36.4-46.3); WHITE BLOOD COUNT 5.05 K/uL (4.8-10.8)
[2018-03-02 08:50] LABS: BLOOD UREA NITROGEN 16 mg/dl (7-18); CALCIUM 9.2 mg/dl (8.5-10.1); CARBON DIOXIDE 28 mmol/L (21-32); GLUCOSE 97 mg/dl (70-99); SODIUM 143 mmol/L (136-145)
[2018-03-02 08:55] LABS: CKMB 1.4 ng/ml (0.5-3.6)
--- NOTE | 2018-03-02 08:56 | DIAGNOSTIC IMAGING REPORT ---
CHEST ONE VIEW PORTABLE CLINICAL HISTORY: 52 years-old Female presenting with chest pain sob. TECHNIQUE: Portable upright AP view of the chest was obtained. COMPARISON: 01/02/2018. FINDINGS: Cardiomediastinal silhouette normal. No focal opacity. No large effusion or pneumothorax. Calcification along the course of the right rotator cuff could suggest calcific tendinitis. Osseous structures otherwise normal. Upper abdomen normal. IMPRESSION: 1. No acute cardiopulmonary disease. Electronically signed by: Juanpablo Alexandre M.D. 03/02/2018 8:55 AM Dictated Date/Time: 03/02/2018 8:53 AM
[2018-03-02] MEDS: NITROGLYCERIN 0.4 MG SL PER TAB CHARGE SL PRN ×2 (08:57→09:08)
[2018-03-02] MEDS ORDERED: PRED10TA (09:01)
[2018-03-02] MEDS ORDERED: ALUMINUM/MAGNESIUM SUSP 30 ML UDC PO STA (10:27)
[2018-03-02] MEDS ORDERED: LIDOCAINE HCL 2% VISC SOLN 20 ML UDC PO STA (10:27)
[2018-03-02 11:45] LABS: ALBUMIN 3.6 gm/dl (3.4-5.0); TOTAL PROTEIN 6.7 gm/dl (6.4-8.2)
--- NOTE | 2018-03-02 11:54 | DIAGNOSTIC IMAGING REPORT ---
ABDOMINAL ULTRASOUND, RIGHT UPPER QUADRANT HISTORY: Right upper quadrant abdominal pain. Nausea.. COMPARISON: Liver MRI 06/13/2014. Abdominal ultrasound 02/17/2013. FINDINGS: Pancreas: The visualized pancreas demonstrates a normal echotexture. Liver: Unremarkable. Gallbladder: No gallbladder wall thickening. There is a 6 mm gallbladder polyp. There are few small stones and sludge within the gallbladder. CBD: 6 mm. Right kidney: No hydronephrosis. IMPRESSION: 1. No change compared to the prior study. 2. A 6 mm gallbladder polyp. 3. A few small stones and sludge within the gallbladder. No gallbladder wall thickening. Electronically signed by: Mookie Park M.D. 03/02/2018 11:53 AM Dictated Date/Time: 03/02/2018 11:51 AM
[2018-03-02 13:21] VITALS: BP 141/88; PULSE 93; TEMP 36.6; O2SAT 95
--- NOTE | 2018-03-03 07:19 | EMERGENCY ROOM VISIT NOTE ---
ED Visit Note First contact with patient: 08:22 Resident Physician Supervision Note: I interviewed and examined the patient. Discussed with Dr. Husain and agree with findings and plan as documented in the note. Any exceptions or clarifications are listed here: This patient was evaluated and appeared to be in no significant distress. Patient's physical examination reveals some tenderness to the epigastric region. Patient has had multiple medical problems in the past. EKG reveals no evidence of ischemia. Troponin is negative 2. Ultrasound right upper quadrant was ordered and revealed sludge but no evidence of acute cholecystitis. There is no change from several years ago. Patient is on Protonix twice daily. She has recently been placed on a prednisone taper once again. She is frequently on prednisone therapy for her asthma. Patient was encouraged to continue Protonix, use Pepcid or Zantac twice daily as needed. She will follow-up with her physician this week for reevaluation and return to the ER for worsening of symptoms or any medical concerns. Documented By: Matilda Milan
== END 2018-03-02 13:23 | disposition home or self-care (01) ==
LOC: C.EDB 08:10
DX: R10.13 Epigastric pain (principal); R07.2 Precordial pain; I25.2 Old myocardial infarction; J45.909 Unspecified asthma, uncomplicated; E78.5 Hyperlipidemia, unspecified; I10 Essential (primary) hypertension; E03.9 Hypothyroidism, unspecified; Z85.89 Personal history of malignant neoplasm of other organs and systems; Z79.82 Long term (current) use of aspirin; Z79.02 Long term (current) use of antithrombotics/antiplatelets; Z79.899 Other long term (current) drug therapy

== ENCOUNTER → 2018-03-17 | Outpatient (CLI) | payer OTHER ==
[~2018-03-17] MED LIST changes: +PRED10TA; -PRED50TA PO; -QVRINH80 INH; -TMF75 PO
== END | disposition home or self-care (01) ==
LOC: C.LAB1850 08:54
PROVIDERS: ATTEND Physician Assistant
DX: E87.6 Hypokalemia (principal)

== ENCOUNTER 2018-03-24 02:31 | Emergency (ER) | payer OTHER ==
[~2018-03-24] VITALS: Ht 177.8 cm; Wt 91.4 kg
[2018-03-24 02:34] VITALS: TEMP 36.7; Ht 177.8 cm; Wt 91.4 kg
[2018-03-24] MEDS ORDERED: ALBUT/IPRATROP 3MG/0.5MG NEB 3 ML VIAL INH STA (02:36)
[2018-03-24] MEDS ORDERED: MAGNESIUM SULFATE 1GM / D5W 1 GM BAG IV STA (02:41)
[2018-03-24] MEDS ORDERED: ALBUT/IPRATROP 3MG/0.5MG NEB 3 ML VIAL INH ONE (02:45)
[2018-03-24] MEDS ORDERED: DEXAMETHASONE **PF** INJ 10 MG/ML VIAL IV ONE (02:45)
[2018-03-24 02:52] VITALS: PULSE 94; O2SAT 100
[2018-03-24 03:10] VITALS: O2SAT 100
--- NOTE | 2018-03-24 04:08 | EMERGENCY ROOM VISIT NOTE ---
History First contact with patient: 02:36 Chief Complaint: RESPIRATORY PROBLEMS Stated Complaint: ASTHMA ATTACK History of Present Illness The patient is a 52 year old female who presents to the Emergency Room with complaints of cough and wheezing with increasing shortness of breath for the past day who has a history of severe asthma. Patient follows with Dr. Grande. She just finished steroids a few days ago. Patient is well-known to this ER for frequent asthma exacerbation visits. Patient denies chest pain, fevers, productive cough, abdominal pain, leg pain or swelling, diaphoresis. She tried home nebulizers no real improvement of symptoms. Review of Systems An 10 system review of systems was completed with positives and pertinent negatives listed in the HPI. 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 (7) Non-STEMI (non-ST elevated myocardial infarction) (8) Uterine Leiomyoma Nos Surgical Problems: (1) History of appendectomy (2) History of heart catheterization (3) History of hemicolectomy Family History Diabetes mellitus Heart disease Hypertension Social History Smoking Status: Never Smoker Alcohol Use: none Drug Use: none Marital Status: Housing Status: lives with family Occupation Status: employed Current/Historical Medications Scheduled Aspirin (Aspirin Ec), 81 MG PO QPM Atorvastatin (Lipitor), 80 MG PO HS Budesonide/Formoterol Fumarate (Symbicort 160/4.5 Inhaler ), 2 PUFFS INH BID Cholecalciferol (Vitamin D), 1 TAB PO QAM Clopidogrel (Plavix), 75 MG PO QAM Diltiazem Hcl Coated Beads (Diltiazem Hcl Er), 120 MG PO QAM Epinephrine (Epipen 2-Serjio), 0.3 MG INJ UD Fluticasone Propionate (Nasal) (Allergy Nasal [place] 24 Ho), 2 SPRAY JETT BID Loratadine (Claritin), 10 MG PO QPM Mepolizumab (Nucala), 1 DOSE INJ MONTHLY Montelukast Sodium (Singulair), 10 MG PO QAM Pantoprazole Sodium (Protonix), 20 MG PO BID Paroxetine Hcl (Paxil), 10 MG PO HS Ranitidine HCl (Ranitidine HCl), 150 MG PO BID Tiotropium [place] (Spiriva Respimat), 2 PUFF INH QAM Scheduled PRN Albuterol Sulf (Proventil 0.083% 2.5MG/3ML), 2.5 MG INH UD PRN for Shortness of Breath Ipratropium-Albuterol (Duoneb), 3 ML NEB QID PRN for Asthma Symptoms Nitroglycerin (Nitrostat), 0.4 MG UT UD PRN for Chest Pain Physical Exam Vital Signs Date Time Temp Pulse Resp B/P (MAP) Pulse Ox O2 Delivery O2 Flow Rate FiO2 03/24/18 03:10 100 Mask 03/24/18 02:52 94 19 100 Mask 8.0 03/24/18 02:52 Room Air 03/24/18 02:48 95 03/24/18 02:34 36.7 105 24 164/97 99 Room Air Physical Exam PHYSICAL EXAM: Vital Signs: Reviewed Nurse's notes. Oxygen saturation was 99% on room air. GENERAL: Pleasant female, Alert, oriented and coherent. The patient is not able to speak in complete sentences. NECK: Supple, non-tender. CHEST: Symmetrical expansion. + retractions + accessory muscle use. HEART: Regular rate and normal heart sounds, no murmur, gallop or rub. LUNGS: Breath sounds equal but significantly diminished in intensity on both sides. Bilateral wheezes heard but no rales or pleuritic rub. SKIN: The skin was without rashes, erythema, edema, or bruising. There is no tenting of the skin. Capillary reflex less than 2 seconds. HEAD: Normocephalic atraumatic. EARS: External auditory canals clear, tympanic membranes pearly randolph without erythema or effusion bilaterally. EYES: Pupils equal round and reactive to light and accommodation. Conjunctivae without injection, sclerae without icterus. Extraocular movements intact. NOSE: Patent, turbinates without inflammation or discharge. MOUTH: Mucous membranes moist. Pharynx without erythema or exudate. Uvula midline. Airway patent. Tongue does not deviate. ABDOMEN: Positive bowel sounds x 4. Normal tympanic percussion. Soft, nontender, without masses or organomegaly. Ramirez sign negative. No guarding or rebound tenderness. MUSCULOSKELETAL: No muscle atrophy, erythema, or edema noted. NEURO: Patient was alert and oriented to person place and time. Normal sensation to light and sharp touch. No focal neurological deficits. Medical Decision & Procedures Medications Administered Medications (Trade) Dose Ordered Sig/Donaldo Route Start Time Stop Time Status Last Admin Dose Admin Albuterol/ Ipratropium (Duoneb) 12 ml ONE ONCE INH 03/24/18 02:45 03/24/18 02:46 DC 03/24/18 02:52 12 ML Albuterol/ Ipratropium (Duoneb) 3 ml NOW STAT INH 03/24/18 02:36 03/24/18 02:39 DC 03/24/18 02:43 3 ML Dexamethasone Sodium Phosphate (Dexamethasone Inj Pf) 10 mg NOW ONCE IV 03/24/18 02:45 03/24/18 02:46 DC 03/24/18 02:51 10 MG Magnesium Sulfate (Magnesium Sulfate 1gm / D5W) 1 gm NOW STAT IV 03/24/18 02:41 03/24/18 02:42 DC 03/24/18 02:54 1 GM ED Course Prior records/ancillary studies reviewed. Triage Nursing notes reviewed. The patient's history was concerning for respiratory difficulties. Differential diagnosis: Etiologies such as infections, reactive airway disease, pneumonia, pneumothorax , COPD, CHF, cardiac ischemia, pulmonary embolism, musculoskeletal, gastrointestinal, as well as others were entertained. Physical examination: As above. ER treatment provided: Nebulizer, Decadron, magnesium On reassessment the patient felt better. Diagnostic interpretation by me: Deferred This appears to be consistent with asthma exacerbation. Patient states she felt much better, may be better than any other time after nebulizer treatment and medication. Patient was informed that I added magnesium into her normal cocktail and to tell the provider next time she comes to ask for magnesium and Decadron. She states she had the best results from tonight's treatment. Patient has a strong history of severe asthma. She has been seen multiple times in the ER for the same complaint. I have seen this patient multiple times. Patient was medicated as above and felt better. She is able to speak in full sentences. Stable vital signs. She is advised to take medications as directed, rest, stay well-hydrated follow-up with pulmonology in a few days here in the ER sooner for chest pain, difficulty breathing, worsening signs or symptoms or as needed. Patient was not hypoxic. She had great improvement. By the evaluation outlined above emergent etiologies such as CHF, cardiac ischemia, pulmonary embolism pneumonia, pneumothorax, musculoskeletal, serious bacterial infections, as well as others were deemed relatively unlikely. The pt informed about the findings as listed above. All questions were answered and pleased with the treatment. Return instructions were outlined and the patient was discharged in stable condition. Outpatient prescription management: Prednisone Referral: The patient was referred back to their primary care physician for follow-up in 2 to 3 days for a recheck of the current condition. The chart was completed utilizing fotobabble Speech voice recognition software. Grammatical errors, random word insertions, pronoun errors, and incomplete sentences are an occassional consequence of this system due to software limitations, ambient noise, and hardware issues. Any formal questions or concerns about the content, text, or information contained within the body of this dictation should be directly addressed to the physician economist research assistant for clarification. Medical Decision As above Medication Reconcilliation Current Medication List: was personally reviewed by me Blood Pressure Screening Patient's blood pressure: Normal blood pressure Impression Primary Impression: Acute asthma exacerbation Departure Information Dispostion Home / Self-Care Condition GOOD Referrals Uma Ocampo M.D. (PCP) Patient Instructions [facility] Additional Instructions You received magnesium 1 g IV, Decadron 10 mg IV and an hour-long nebulizer. Ask for this combination next time for your asthma exacerbation when you come to the ER. Albuterol Inhaler: Take 2 puffs four times daily for five days, then as needed. Or home nebulizers every 4 hours as needed. Prednisone 50mg: Once daily until the prescription is finished. It is best to take this earlier in the day as some patients note occasional difficulty falling asleep when taken in the late evening. Rest and drink plenty of fluids. Avoid smoke/smoking, fumes, dust, or any triggers in the past that may have affected your breathing. Continue current medications. Return to the ER for chest pain, difficulty breathing, fevers, vomiting, worsening of your condition, or as needed. Follow up with your primary physician or pulmonology this week for a recheck of your current condition. Problem Qualifiers Primary Impression: Acute asthma exacerbation Asthma severity: moderate Asthma persistence: persistent Qualified Codes: J45.41 - Moderate persistent asthma with (acute) exacerbation
[2018-03-24] MEDS ORDERED: PRED50TA PO (04:09)
[2018-03-24 04:14] VITALS: BP 134/96; PULSE 98; O2SAT 99
== END 2018-03-24 04:14 | disposition home or self-care (01) ==
LOC: C.EDB 02:32 → C.EDA 04:14
DX: J45.41 Moderate persistent asthma with (acute) exacerbation (principal); E78.5 Hyperlipidemia, unspecified; E03.9 Hypothyroidism, unspecified; I10 Essential (primary) hypertension; Z85.00 Personal history of malignant neoplasm of unspecified digestive organ; I25.2 Old myocardial infarction; Z90.49 Acquired absence of other specified parts of digestive tract; Z83.3 Family history of diabetes mellitus; Z82.49 Family history of ischemic heart disease and other diseases of the circulatory system; Z79.82 Long term (current) use of aspirin; Z79.899 Other long term (current) drug therapy; Z79.01 Long term (current) use of anticoagulants

== ENCOUNTER → 2018-04-08 | Day surgery (SDC) | payer OTHER ==
[2018-03-30 10:42] VITALS: Ht 177.8 cm; Wt 90.9 kg
[~2018-04-08] VITALS: Ht 177.8 cm; Wt 90.9 kg
[~2018-04-08] MED LIST changes: +ALBUTEROL 0.083% NEBU SOLN 3 ML VIAL INH STA; +LIDOCAINE HCL 2% 2 ML VIAL (20MG/ML) ONE; -PRED10TA; +PROPOFOL IV EMULSION 10 MG/ML 20 ML VIAL ONE; +SODIUM CHLORIDE 0.9% 500ML 500 ML IV ONE
[2018-04-08 15:12] VITALS: PULSE 89; O2SAT 98
--- NOTE | 2018-04-08 15:21 | Endo History and Physical ---
History & Physical Date of Service: April 08, 2018. Chief Complaint: DYSPHAGIA Referring Physician: DR. ROONEY History of Present Illness dysphagia Past Medical History Asthma, Hypertension Past Surgical History Hx Cardiac Surgery: Yes (HEART CATH-2 STENTS PLACED 02/2016-[facility]) Hx Internal Defibrillator: No Hx Pacemaker: No Hx Abdominal Surgery: Yes (HEMICOLECTOMY 01/2013, APPY 12/2012 (CANCEROUS)) Hx of Implantable Prosthesis: No Hx Post-Op Nausea and Vomiting: No Hx Cancer Surgery: Yes (APPY & HEMICOLECTOMY) Hx Thoracic Surgery: No Hx Orthopedic: No Hx Urinary Tract Surgery: No Family History None Social History Smoking Status: Never Smoker Hx Substance Use: No Hx Alcohol Use: Yes (RARELY) Allergies Coded Allergies: No Known Allergies (Verified , 03/30/18) Current Medications Reported Home Medications Medications Dose Route/Sig Max Daily Dose Days Date Category Paxil (Paroxetine Hcl) 10 Mg Tab 10 Mg PO HS 01/02/18 Reported Proventil 0.083% 2.5MG/3ML (Albuterol Sulf) 2.5 Mg/3 Ml Nebu 2.5 Mg INH UD PRN 01/02/18 Reported Allergy Nasal [place] 24 Ho (Fluticasone Propionate (Nasal)) 50 Mcg/Act Spr 2 [place] JETT BID 11/25/17 Reported Vitamin D (Cholecalciferol) 1,000 Unit Tab 1 Tab PO QAM 11/25/17 Reported Symbicort 160/4.5 Inhaler (Budesonide/Formoterol Fumarate) Aero 2 Puffs INH BID 10/29/17 Reported Spiriva Respimat (Tiotropium [place]) 2.5 Mcg/Act Spr 2 Puff INH QAM 10/29/17 Reported Epipen 2-Serjio (Epinephrine) 0.3 Mg Inj 0.3 Mg INJ UD 10/29/17 Reported Diltiazem Hcl Er (Diltiazem Hcl Coated Beads) 120 Mg Cap 120 Mg PO QAM 10/29/17 Reported Nucala (Mepolizumab) 100 Mg Inj 1 Dose INJ MONTHLY 09/13/17 Reported Ranitidine HCl 150 Mg Tab 150 Mg PO BID 07/25/17 Reported Lipitor (Atorvastatin Calcium) 80 Mg Tab 80 Mg PO HS 06/30/17 Reported Protonix (Pantoprazole Sodium) 20 Mg Tab 20 Mg PO BID 06/30/17 Reported Claritin (Loratadine) 10 Mg Tab 10 Mg PO QPM 06/30/17 Reported Nitrostat (Nitroglycerin) 0.4 Mg Tab 0.4 Mg UT UD PRN 04/01/16 Reported Plavix (Clopidogrel Bisulfate) 75 Mg Tab 75 Mg PO QAM 04/01/16 Reported Aspirin Ec (Aspirin) 81 Mg Tab 81 Mg PO QPM 04/01/16 Reported Duoneb (Ipratropium-Albuterol) 3 Ml Nebu 3 Ml NEB QID PRN 10/30/14 Reported Singulair (Montelukast Sodium) 10 Mg Tab 10 Mg PO QAM 10/08/14 Reported Vital Signs Weight (Kilograms): 90.91 Height (Feet): 5 Height (Inches): 10 Date Time Temp Pulse Resp B/P (MAP) Pulse Ox O2 Delivery O2 Flow Rate FiO2 04/08/18 15:12 89 18 98 Room Air 04/08/18 14:38 37.2 95 20 165/104 (124) 97 Room Air Physical Exam General Appearance: WD/WN, no apparent distress Respiratory/Chest: Auscultation: breath sounds normal Cardiovascular: Heart Auscultation: RRR Abdomen: Bowel Sounds: normal Inspection & Palpation: soft, non-distended, no tenderness, guarding & rebound Assessment and Plan dysphagia
--- NOTE | 2018-04-08 15:54 | Discharge Instructions ---
Endoscopy Patient Instructions Date / Procedure(s) Performed April 08, 2018. EGD Allergy Information Coded Allergies: No Known Allergies (Verified , 03/30/18) Discharge Date / Findings April 08, 2018. Reported Home Medications Medications Dose Route/Sig Max Daily Dose Days Date Category Paxil (Paroxetine Hcl) 10 Mg Tab 10 Mg PO HS 01/02/18 Reported Proventil 0.083% 2.5MG/3ML (Albuterol Sulf) 2.5 Mg/3 Ml Nebu 2.5 Mg INH UD PRN 01/02/18 Reported Allergy Nasal Ulysses 24 Ho (Fluticasone Propionate (Nasal)) 50 Mcg/Act Spr 2 Ulysses JETT BID 11/25/17 Reported Vitamin D (Cholecalciferol) 1,000 Unit Tab 1 Tab PO QAM 11/25/17 Reported Symbicort 160/4.5 Inhaler (Budesonide/Formoterol Fumarate) Aero 2 Puffs INH BID 10/29/17 Reported Spiriva Respimat (Tiotropium Peerless) 2.5 Mcg/Act Spr 2 Puff INH QAM 10/29/17 Reported Epipen 2-Serjio (Epinephrine) 0.3 Mg Inj 0.3 Mg INJ UD 10/29/17 Reported Diltiazem Hcl Er (Diltiazem Hcl Coated Beads) 120 Mg Cap 120 Mg PO QAM 10/29/17 Reported Nucala (Mepolizumab) 100 Mg Inj 1 Dose INJ MONTHLY 09/13/17 Reported Ranitidine HCl 150 Mg Tab 150 Mg PO BID 07/25/17 Reported Lipitor (Atorvastatin Calcium) 80 Mg Tab 80 Mg PO HS 06/30/17 Reported Protonix (Pantoprazole Sodium) 20 Mg Tab 20 Mg PO BID 06/30/17 Reported Claritin (Loratadine) 10 Mg Tab 10 Mg PO QPM 06/30/17 Reported Nitrostat (Nitroglycerin) 0.4 Mg Tab 0.4 Mg UT UD PRN 04/01/16 Reported Plavix (Clopidogrel Bisulfate) 75 Mg Tab 75 Mg PO QAM 04/01/16 Reported Aspirin Ec (Aspirin) 81 Mg Tab 81 Mg PO QPM 04/01/16 Reported Duoneb (Ipratropium-Albuterol) 3 Ml Nebu 3 Ml NEB QID PRN 10/30/14 Reported Singulair (Montelukast Sodium) 10 Mg Tab 10 Mg PO QAM 10/08/14 Reported continue medications Medication Instructions Stopped Medication(s): PLAVIX AND ASPIRIN Restart Stopped Medication(s): Reported Home Medications Medications Dose Route/Sig Max Daily Dose Days Date Category Paxil (Paroxetine Hcl) 10 Mg Tab 10 Mg PO HS 01/02/18 Reported Proventil 0.083% 2.5MG/3ML (Albuterol Sulf) 2.5 Mg/3 Ml Nebu 2.5 Mg INH UD PRN 01/02/18 Reported Allergy Nasal Ulysses 24 Ho (Fluticasone Propionate (Nasal)) 50 Mcg/Act Spr 2 Ulysses JETT BID 11/25/17 Reported Vitamin D (Cholecalciferol) 1,000 Unit Tab 1 Tab PO QAM 11/25/17 Reported Symbicort 160/4.5 Inhaler (Budesonide/Formoterol Fumarate) Aero 2 Puffs INH BID 10/29/17 Reported Spiriva Respimat (Tiotropium Peerless) 2.5 Mcg/Act Spr 2 Puff INH QAM 10/29/17 Reported Epipen 2-Serjio (Epinephrine) 0.3 Mg Inj 0.3 Mg INJ UD 10/29/17 Reported Diltiazem Hcl Er (Diltiazem Hcl Coated Beads) 120 Mg Cap 120 Mg PO QAM 10/29/17 Reported Nucala (Mepolizumab) 100 Mg Inj 1 Dose INJ MONTHLY 09/13/17 Reported Ranitidine HCl 150 Mg Tab 150 Mg PO BID 07/25/17 Reported Lipitor (Atorvastatin Calcium) 80 Mg Tab 80 Mg PO HS 06/30/17 Reported Protonix (Pantoprazole Sodium) 20 Mg Tab 20 Mg PO BID 06/30/17 Reported Claritin (Loratadine) 10 Mg Tab 10 Mg PO QPM 06/30/17 Reported Nitrostat (Nitroglycerin) 0.4 Mg Tab 0.4 Mg UT UD PRN 04/01/16 Reported Plavix (Clopidogrel Bisulfate) 75 Mg Tab 75 Mg PO QAM 04/01/16 Reported Aspirin Ec (Aspirin) 81 Mg Tab 81 Mg PO QPM 04/01/16 Reported Duoneb (Ipratropium-Albuterol) 3 Ml Nebu 3 Ml NEB QID PRN 10/30/14 Reported Singulair (Montelukast Sodium) 10 Mg Tab 10 Mg PO QAM 10/08/14 Reported Reported Home Medications Medications Dose Route/Sig Max Daily Dose Days Date Category Paxil (Paroxetine Hcl) 10 Mg Tab 10 Mg PO HS 01/02/18 Reported Proventil 0.083% 2.5MG/3ML (Albuterol Sulf) 2.5 Mg/3 Ml Nebu 2.5 Mg INH UD PRN 01/02/18 Reported Allergy Nasal Ulysses 24 Ho (Fluticasone Propionate (Nasal)) 50 Mcg/Act Spr 2 Ulysses JETT BID 11/25/17 Reported Vitamin D (Cholecalciferol) 1,000 Unit Tab 1 Tab PO QAM 11/25/17 Reported Symbicort 160/4.5 Inhaler (Budesonide/Formoterol Fumarate) Aero 2 Puffs INH BID 10/29/17 Reported Spiriva Respimat (Tiotropium Peerless) 2.5 Mcg/Act Spr 2 Puff INH QAM 10/29/17 Reported Epipen 2-Serjio (Epinephrine) 0.3 Mg Inj 0.3 Mg INJ UD 10/29/17 Reported Diltiazem Hcl Er (Diltiazem Hcl Coated Beads) 120 Mg Cap 120 Mg PO QAM 10/29/17 Reported Nucala (Mepolizumab) 100 Mg Inj 1 Dose INJ MONTHLY 09/13/17 Reported Ranitidine HCl 150 Mg Tab 150 Mg PO BID 07/25/17 Reported Lipitor (Atorvastatin Calcium) 80 Mg Tab 80 Mg PO HS 06/30/17 Reported Protonix (Pantoprazole Sodium) 20 Mg Tab 20 Mg PO BID 06/30/17 Reported Claritin (Loratadine) 10 Mg Tab 10 Mg PO QPM 06/30/17 Reported Nitrostat (Nitroglycerin) 0.4 Mg Tab 0.4 Mg UT UD PRN 04/01/16 Reported Plavix (Clopidogrel Bisulfate) 75 Mg Tab 75 Mg PO QAM 04/01/16 Reported Aspirin Ec (Aspirin) 81 Mg Tab 81 Mg PO QPM 04/01/16 Reported Duoneb (Ipratropium-Albuterol) 3 Ml Nebu 3 Ml NEB QID PRN 10/30/14 Reported Singulair (Montelukast Sodium) 10 Mg Tab 10 Mg PO QAM 10/08/14 Reported Provider Instructions Activity Restrictions - No exercising or heavy lifting for 24 hours. - Do not drink alcohol the day of the procedure. - Do not drive a car or operate machinery until the day after the procedure. - Do not make any important decisions or sign important papers in 24 hours after the procedure. Following Day: - Return to full activity which may include returning to work/school. Diet Start your diet with liquids and light foods (jello, soup, juice, toast). Then eat your usual diet if not nauseated. Treatment For Common After Affects For mild abdominal pain, bloating, or excessive gas: - Rest - Eat lightly - Lie on right side Follow-Up Information Follow-up with DR. ROONEY as scheduled Anesthesia Information What You Should Know You have had a procedure that required some medicine to reduce anxiety and discomfort. This treatment is called moderate sedation. After receiving the treatment, you may be sleepy, but you will be able to breathe on your own. The effects of the treatment may last for several hours. Follow these instructions along with Activity/Diet recommendations noted above: * Do NOT do anything where dizziness or clumsiness would be dangerous. * Rest quietly at home today, then you can be up and about tomorrow. * Have a responsible person stay with you the rest of today. * You may have had an I.V. today. If so, you may take the dressing off later today. Recommendations Call your doctor if: * Trouble breathing * Continuous vomiting for more than 24 hours * Temperature above 101 degrees * Severe abdominal pain or bloating * Pain not relieved by pain medicine ordered * There is increased drainage or redness from any incision * A large amount of rectal bleeding greater than 2-3 tablespoons. (If you had a polyp/s removed or have hemorrhoids, a small amount of blood - from the rectum is to be expected.) * You have any unanswered questions or concerns. IN THE EVENT OF A SERIOUS EMERGENCY, GO TO THE NEAREST EMERGENCY ROOM Your discharge instructions were prepared by provider Kang Graham. Patient Instructions Signature Page Yulisa Morgan Patient (or Guardian) Signature/Date: I have read and understand the instructions given to me by my caregivers. Caregiver/RN/Doctor Signature/Date: The above-named patient and/or guardian has received patient instructions on this date. + Original Patient Signature Page (only) stays with chart. Please make copy for patient.
--- NOTE | 2018-04-08 16:10 | Anesthesiology Progress Note ---
Anesthesia Post Op Note Date & Time April 08, 2018 at 16:10 Vital Signs Pain Intensity: 0 Vital Signs Past 12 Hours Date Time Temp Pulse Resp B/P (MAP) Pulse Ox O2 Delivery O2 Flow Rate FiO2 04/08/18 15:12 89 18 98 Room Air 04/08/18 14:38 37.2 95 20 165/104 (124) 97 Room Air Notes Mental Status: alert / awake / arousable, participated in evaluation Pt Amnestic to Procedure: Yes Nausea / Vomiting: adequately controlled Pain: adequately controlled Airway Patency, RR, SpO2: stable & adequate BP & HR: stable & adequate Hydration State: stable & adequate Anesthetic Complications: no major complications apparent
--- NOTE | 2018-04-08 16:42 | GI REPORT ---
Patient Name: Yulisa Morgan Procedure Date: 04/08/2018 3:17 PM Date of : 1965 Admit Type: Outpatient Age: 52 Gender: Female Attending MD: Kang Graham MD Procedure: Upper GI endoscopy Providers: Kang Graham MD Referring MD: Kang Graham MD Indications: Esophageal dysphagia Medicines: Propofol per Anesthesia Complications: No immediate complications. Estimated blood loss: Minimal. Estimated Blood Loss: Estimated blood loss was minimal. Procedure: Pre-Anesthesia Assessment: - Prior to the procedure, a History and Physical was performed, and patient medications and allergies were reviewed. The patient's tolerance of previous anesthesia was also reviewed. The risks and benefits of the procedure and the sedation options and risks were discussed with the patient. All questions were answered, and informed consent was obtained. Prior Anticoagulants: The patient has taken no previous anticoagulant or antiplatelet agents. ASA Grade Assessment: III - A patient with severe systemic disease. After reviewing the risks and benefits, the patient was deemed in satisfactory condition to undergo the procedure. After obtaining informed consent, the endoscope was passed under direct vision. Throughout the procedure, the patient's blood pressure, pulse, and oxygen saturations were monitored continuously. The scope was introduced through the mouth, and advanced to the second part of duodenum. The upper GI endoscopy was accomplished without difficulty. The patient tolerated the procedure well. Findings: The upper third of the esophagus and middle third of the esophagus were normal. The esophagus and gastroesophageal junction were examined with white light. There were esophageal mucosal changes suspicious for short-segment Wolfe's esophagus. These changes involved the mucosa at the upper extent of the gastric folds (31 cm from the incisors) extending to the Z-line (40 cm from the incisors). One tongue of salmon-colored mucosa was present from 40 to 41 cm. The maximum longitudinal extent of these esophageal mucosal changes was 0.5 cm in length. Mucosa was biopsied with a cold forceps for histology after dilation was performed. One specimen bottle was sent to pathology. Verification of patient identification for the specimen was done by the physician and cctv technician using the patient's name and medical record number. The entire examined stomach was normal. The examined duodenum was normal. The cardia and gastric fundus were normal on retroflexion. Retained gastric contents are not identified on this exam. The examined esophagus was normal. A guidewire was placed and the scope was withdrawn. Dilation was performed with a Savary dilator with no resistance at 51 Fr. The dilation site was examined following endoscope reinsertion and showed moderate improvement in luminal narrowing. Impression: - Normal upper third of esophagus and middle third of esophagus. - Esophageal mucosal changes suspicious for short-segment Wolfe's esophagus. Biopsied. - Normal stomach. - Normal examined duodenum. - Normal esophagus. Recommendation: - Discharge patient to home (ambulatory). - Advance diet as tolerated. - Continue present medications. - Await pathology results. - Return to GI clinic as previously scheduled. MD Kang García MD 04/08/2018 4:42:08 PM This report has been signed electronically. Note Initiated On: 04/08/2018 3:17 PM Number of Addenda: 0 I attest to the content of the Intraoperative Record and orders documented therein, exceptions below {[id number]}
[2018-04-08 16:46] VITALS: PULSE 101; O2SAT 94
[2018-04-08 16:52] VITALS: BP 150/81; PULSE 93; O2SAT 94
== END | disposition home or self-care (01) ==
LOC: C.GI 13:50
PROVIDERS: ATTEND Internal Medicine Gastroenterology
DX: R13.10 Dysphagia, unspecified (principal); J45.909 Unspecified asthma, uncomplicated; Z90.89 Acquired absence of other organs; Z79.899 Other long term (current) drug therapy; Z79.82 Long term (current) use of aspirin; I25.2 Old myocardial infarction; Z85.038 Personal history of other malignant neoplasm of large intestine

== ENCOUNTER 2018-06-14 07:53 | Inpatient (IN) | payer OTHER ==
[~2018-06-14] VITALS: Ht 177.8 cm; Wt 87.5 kg
[~2018-06-14 07:53] MED LIST changes: -ALBUTEROL 0.083% NEBU SOLN 3 ML VIAL INH STA; +IPRA-64 NEB; -IPRASOL4 NEB; -LIDOCAINE HCL 2% 2 ML VIAL (20MG/ML) ONE; -MEPO1INJ INJ; -PROPOFOL IV EMULSION 10 MG/ML 20 ML VIAL ONE; -SODIUM CHLORIDE 0.9% 500ML 500 ML IV ONE
[2018-06-14] MEDS ORDERED: ALBUT/IPRATROP 3MG/0.5MG NEB 3 ML VIAL INH STA (08:28)
--- NOTE | 2018-06-14 09:04 | DIAGNOSTIC IMAGING REPORT ---
CHEST ONE VIEW PORTABLE HISTORY: 52 years-old Female SOB, asthma exacerbation acute shortness of breath with history of asthma COMPARISON: Chest radiograph 06/06/2018 TECHNIQUE: Portable AP view of the chest FINDINGS: Cardiomediastinal and hilar silhouettes are within normal limits. There is no pneumothorax, pleural effusion, focal airspace consolidation or overt pulmonary edema. Coronary arterial stent graft is noted. Bones of the chest appear grossly intact. IMPRESSION: No acute process. The above report was generated using voice recognition software. It may contain grammatical, syntax or spelling errors. Electronically signed by: Ricardo York M.D. 06/14/2018 9:03 AM Dictated Date/Time: 06/14/2018 9:02 AM
[2018-06-14] MEDS ORDERED: MAGNESIUM SULFATE 1GM / D5W 100 ML IV STA (09:31)
[2018-06-14] MEDS: SODIUM CHLORIDE 0.9% 1000ML 1,000 ML IV SCH ×3 (09:42→13:53)
[2018-06-14 09:43] LABS: BASO % 0.5 %; BASO ABS # 0.02 K/uL (0-0.2); EOS % 1.7 %; EOS ABS # 0.07 K/uL (0-0.5); HEMATOCRIT 43.6 % (37-47); HEMOGLOBIN 14.1 g/dL (12.0-16.0); IG# 0.01 K/uL (0.00-0.02); LYMPH % 38.1 %; LYMPH ABS # 1.58 K/uL (1.2-3.4); MEAN CELL VOLUME 90.3 fL (80-100); MEAN CORPUSCULAR HEMOGLOBIN 29.2 pg (25-34); MEAN CORPUSCULAR HGB CONC 32.3 g/dl (32-36); MEAN PLATELET VOLUME 11.3 fL (7.4-10.4); MONO % 11.3 %; MONO ABS # 0.47 K/uL (0.11-0.59); NEUT % 48.2 %; PLATELET COUNT 263 K/uL (130-400); RED CELL DISTRIBUTION WIDTH CV 14.8 % (11.5-14.5); WHITE BLOOD COUNT 4.15 K/uL (4.8-10.8)
[2018-06-14] MEDS ORDERED: ALBUT/IPRATROP 3MG/0.5MG NEB 3 ML VIAL INH ONE (09:45)
[2018-06-14 09:48] VITALS: PULSE 111; O2SAT 98
[2018-06-14 09:49] LABS: CALCIUM 9.4 mg/dl (8.5-10.1); CREATININE 1.02 mg/dl (0.60-1.20)
[2018-06-14] MEDS ORDERED: LORAZEPAM 2 MG/ML 1 ML VIAL IV STA (10:27)
[2018-06-14] MEDS ORDERED: ALUMINUM/MAGNESIUM/SIMETH (MAALOX MAX) 30 ML UDC PO PRN (11:45)
[2018-06-14] MEDS ORDERED: ACETAMINOPHEN 325 MG TAB PO PRN (11:45)
[2018-06-14] MEDS ORDERED: ALBUT/IPRATROP 3MG/0.5MG NEB 3 ML VIAL INH PRN (11:45)
[2018-06-14] MEDS ORDERED: ONDANSETRON INJ 2 MG/ML 2 ML VIAL IV PRN (11:45)
[2018-06-14] MEDS ORDERED: NITROGLYCERIN 0.4 MG SL PER TAB CHARGE UT PRN (11:45)
[2018-06-14] MEDS ORDERED: MAGNESIUM HYDROXIDE SUSP 30 ML UDC PO PRN (11:45)
[2018-06-14] MEDS ORDERED: POLYETHYLENE (MIRALAX) 17 GM PACK PO PRN (11:45)
[2018-06-14] MEDS ORDERED: ALBUTEROL 0.083% NEBU SOLN 3 ML VIAL INH PRN (11:45)
[2018-06-14] MEDS ORDERED: EPINEPHRINE ADULT AUTO-INJECT 0.3 MG SYR IM PRN (11:45)
--- NOTE | 2018-06-14 12:28 | History and Physical ---
History & Physical Date of Service Jun 14, 2018. History & Physical admit #[id number]
[2018-06-14 13:00] VITALS: BP 139/86; PULSE 125; TEMP 37.1; O2SAT 95; Ht 177.8 cm; Wt 87.5 kg
--- NOTE | 2018-06-14 13:41 | HISTORY & PHYSICAL EXAMINATION ---
DATE OF ADMISSION: 06/14/2018 CHIEF COMPLAINT: Asthma exacerbation. HISTORY OF PRESENT ILLNESS: The patient is a very pleasant 52-year-old female who presents after having at least a week of persistent asthma symptoms failing outpatient treatment. She notes she has actually had a fairly bad summer as far as her asthma goes. She sounds to have at least moderate persistent asthma on a normal day, but through the month of May, she has already had to come to the ER twice. Once early in May, that got better, but then about a week ago, she came after having had a dust exposure at work. She was treated and released and she was feeling better enough to go home, but noted that really since then, she has never gotten truly back to baseline in spite of the steroids, in spite of recurrent use of her nebulizers and then she really started to get bad on about the 06/11/2018, so about 3 days ago using nebulizer [id number], needing it frequently, feeling very tight, feeling very wheezy, feeling very short of breath. She has not had fevers, chills, or sweats, just shaking from the albuterol. She had enough albuterol that she feels a little tight in her chest after it as well, probably simply from the sympathetic stimulation of it, but at any rate given that she was failing outpatient treatment, she came here to the ER for further evaluation. During the last week, she also notes that she has had a bit more of an allergic flare and has even woken up at times with her eyes crusted shut and a lot of congestion. REVIEW OF SYSTEMS: Otherwise negative, except for as above. PAST MEDICAL HISTORY: Includes asthma, it sounds to be probably at least moderate persistent and she did have PFTs about a year ago that showed chronic airflow obstruction, therefore also COPD; she has coronary artery disease status post stenting; she has GERD; hypertension; laryngopharyngeal reflux; leukopenia; with her coronary disease, she did have a non-ST elevation myocardial; Sjogren's. HOME MEDICATIONS: Listed as aspirin, atorvastatin, budesonide, Plavix, cromolyn, diltiazem, an EpiPen p.r.n., Flonase b.i.d., DuoNeb, Claritin, magnesium, Singulair, nitro, Paxil, potassium, ProAir, Zantac, Spiriva, Symbicort. She has a spacer. PAST SURGICAL HISTORY: Includes cath and stenting I believe in 2016, a hemicolectomy, breast reduction surgery and an appendectomy. FAMILY HISTORY: Includes allergic rhinitis, cancer, diabetes, heart disease and rheumatoid arthritis. SOCIAL HISTORY: She is a lifelong nonsmoker. Social alcohol. She is apparently . 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 ALLERGIES: No known drug allergies. PHYSICAL EXAMINATION: GENERAL: She is awake, alert, oriented x3, pleasant, fatigued, but mildly-dyspneic appearing. HEENT: Normocephalic, atraumatic. Mucous membranes are moist. She does have a little bit of injection in the back of her throat and some boggy turbinates in her nose. NECK: Supple. CARDIOVASCULAR: Tachycardic. No rubs, murmurs, or gallops. LUNGS: Show diffuse wheeze bilaterally. It is a fairly harsh expiratory wheeze. Fortunately, she does have good air entry. There are no focal findings. There are no rales or rhonchi just diffuse wheezing. Fortunately, no accessory muscle use or abdominal breathing. ABDOMEN: Soft, nondistended, nontender. No masses or organomegaly. EXTREMITIES: Without cyanosis, clubbing or edema. No calf tenderness. SKIN: Shows no rashes, no pallor or icterus. MENTAL STATE: Shows good recent and remote recall. Normal mood and affect. Good judgment and insight. NEUROLOGIC: Shows cranial nerves II through XII are grossly intact. Gross motor and sensory intact. MUSCULOSKELETAL/OSTEOPATHIC STRUCTURAL: Shows her to have probably right slightly worse than the left bilateral upper paraspinal thoracic hypertonicity and she notes tenderness in some areas. Direct myofascial and a little bit of ligamentous articular strain was done with improvement in the soft tissue. I also did a little bit of balanced ligamentous tension across the ribs. LABS AND DIAGNOSTICS: CBC shows a white count of 4.15, hemoglobin 14.1, platelets 263. Basic metabolic panel with a sodium 142, potassium 4, chloride 106, CO2 30, BUN 13, creatinine 1.02, calcium 9.4, glucose 105. Troponin of less than 0.030. D-dimer of 209, less than 450 being negative. Chest x-ray reviewed by Radiology as well as myself shows no infiltrates or pulmonary edema or anything else, may be slightly hyperinflated, although it is a little bit of an over penetrated film. EKG is sinus tach, no ischemic changes. ASSESSMENT AND PLAN: 1. Status asthmaticus with an acute asthma exacerbation. It sounds like she has probably had multiple insults leading to this current exacerbation. She had overall a bit of a bad month, making it likely that her asthma is just more flared up in general right now and then it sounds like last week with a fairly significant dust exposure and then over the course of this week being so wet and damp and she notes she does have mold allergies, probably her allergies have been flaring, all of this leading to her having an non-stop exacerbation that has failed outpatient treatment. To that respect, we will admit her to Med-Surg, and start her on Solu-Medrol 60 mg q. 6 hours. as well as DuoNebs q.i.d. and q. 2 hours. p.r.n. shortness of breath or wheeze. We will continue her home Symbicort and Spiriva and we will add Zithromax to cover for atypicals. She does not show any infiltrate; however, given that she is technically chronic obstructive pulmonary disease with her asthma obviously there is good evidence in shorter length of stay and faster improvement when covering atypicals in the chronic obstructive pulmonary disease population. I also did OMT as above noted as an adjunct to treatment given that with children with asthma and with elderly with pneumonias, OMT to thoracic and rib region hastens recovery and improves air flow. Obviously, she does not exactly meet either of these populations, but the disease stage showed significant overlap. We discussed that given that she seems to have fairly significant asthma despite very aggressive outpatient treatment and ongoing trial of OMT, may make sense as an adjunct to her asthma overall. 2. Somatic dysfunction thoracic region, OMT as above. 3. Coronary artery disease status post myocardial infarction and stenting. She shows no angina. Her EKG and troponins are okay. I do wonder if the albuterol over and over again is creating a little bit of tachycardia-induced chest pressure, but without any ischemic signs or symptoms otherwise. We will simply observe and continue her home meds. 4. Gastroesophageal reflux disease. She does not seem to be having much significant gastroesophageal reflux disease right now obviously that could be a trigger for her asthma as well. We will need to follow this closely, but for now we will continue her home H2 mari and PPI. 5. Deep venous thrombosis prophylaxis, Lovenox. 6. Leukopenia. This appears to be mild. Can follow up as an outpatient as long as her clinical situation does not change. 7. Disposition: She will be admitted to the [facility].
[2018-06-14] MEDS ORDERED: AZITHROMYCIN 250 MG TAB PO ONE (14:00)
[2018-06-14 14:46] VITALS: PULSE 118; O2SAT 95
[2018-06-14] MEDS: ALBUT/IPRATROP 3MG/0.5MG NEB 3 ML VIAL INH SCH ×2 (14:46→19:30)
[2018-06-14 15:00] VITALS: BP 113/75; PULSE 118; TEMP 37.1; O2SAT 95
[2018-06-14] MEDS: ENOXAPARIN 40 MG/0.4 ML SYR SQ SCH (16:00)
--- NOTE | 2018-06-14 16:36 | EMERGENCY ROOM VISIT NOTE ---
ED Visit Note First contact with patient: 08:36 Chief Complaint: Shortness of breath. History of Present Illness: Ms. Morgan is a 52-year-old black female who ambulates into the ED complaining of shortness of breath. Historically patient has a history of asthma and feels like this is her typical asthma exacerbation. She does go on to report that she has had 3 episodes of her asthma exacerbations this month and has not had much relief of her symptoms since the months started. She was seen in the emergency department approximately 1 week ago and at that time she was treated with an hour-long DuoNeb, IV fluids, steroids and magnesium and had moderate relief of her symptoms. She reports since being discharged home she has persistent shortness of breath and wheezing. Additionally she does report she is status post myocardial infarction with catheterization and stent placement. Currently patient reports her exacerbated symptoms started approximately 4 days ago. Since they started they have been constant. Her symptoms including shortness of breath, wheezing, chest tightness. As previously noted she is just finished a course of steroids on Thursday without relief of her discomfort. And she reports she has been using her inhalers at home with a spacer approximately every 1-1.5 hours without relief of her discomfort. She has not identified any alleviating factors related to her shortness of breath or other symptoms. She has not taken any additional medications for her symptoms prior to arrival at the hospital. Associated with her symptoms she reports she is having allergy symptoms including nasal drainage, postnasal drip , nonproductive cough. She describes her chest discomfort as a anterior midsternal chest tightness. This discomfort is nonradiating. Her pain slightly worsens with cough. She has not identified any alleviating factors related to the pain. She has not taken any medications specifically for her pain prior to arrival at the hospital. She denies fevers, chills, sweats, skin eruptions, skin color changes, painful talking, drooling, sore throats, difficulty swallowing, palpitations, orthopnea , dependent edema, hemoptysis, previous clots, claudication, cramping, recent surgery/inactivity/extended travel, abdominal pain, nausea, vomiting, back/ flank pain. Review of Systems: As noted above in history of present illness. All body systems were reviewed and found to be negative as noted above. Past Medical History: As previously noted, dyslipidemia, hypertension, hypothyroidism, malignant carcinoid tumor of the appendix, uterine leiomyoma, status post appendectomy and hemicolectomy. Current Medications: Medications Dose Route/Sig Max Daily Dose Days Date Category Paxil (Paroxetine Hcl) 10 Mg Tab 10 Mg PO HS 01/02/18 Reported Proventil 0.083% 2.5MG/3ML (Albuterol Sulf) 2.5 Mg/3 Ml Nebu 2.5 Mg INH UD PRN 01/02/18 Reported Allergy Nasal [place] 24 Ho (Fluticasone Propionate (Nasal)) 50 Mcg/Act Spr 2 [place] JETT BID 11/25/17 Reported Vitamin D (Cholecalciferol) 1,000 Unit Tab 1,000 Units PO QAM 11/25/17 Reported Symbicort 160/4.5 Inhaler (Budesonide/Formoterol Fumarate) Aero 2 Puffs INH BID 10/29/17 Reported Spiriva Respimat (Tiotropium [place]) 2.5 Mcg/Act Spr 2 Puff INH QAM 10/29/17 Reported Epipen 2-Serjio (Epinephrine) 0.3 Mg Inj 0.3 Mg INJ UD 10/29/17 Reported Diltiazem Hcl Er (Diltiazem Hcl Coated Beads) 120 Mg Cap 120 Mg PO QAM 10/29/17 Reported Ranitidine HCl 150 Mg Tab 150 Mg PO BID 07/25/17 Reported Lipitor (Atorvastatin Calcium) 80 Mg Tab 80 Mg PO HS 06/30/17 Reported Protonix (Pantoprazole Sodium) 20 Mg Tab 20 Mg PO BID 06/30/17 Reported Claritin (Loratadine) 10 Mg Tab 10 Mg PO QPM 06/30/17 Reported Nitrostat (Nitroglycerin) 0.4 Mg Tab 0.4 Mg UT UD PRN 04/01/16 Reported Plavix (Clopidogrel Bisulfate) 75 Mg Tab 75 Mg PO QAM 04/01/16 Reported Aspirin Ec (Aspirin) 81 Mg Tab 81 Mg PO QPM 04/01/16 Reported Duoneb (Ipratropium-Albuterol) 3 Ml Nebu 3 Ml NEB QID PRN 10/30/14 Reported Singulair (Montelukast Sodium) 10 Mg Tab 10 Mg PO QAM 10/08/14 Reported Allergies to Medications: Patient denies. Social History: Patient is not currently employed; she feels safe in her home environment; she denies tobacco use. Physical Examination: Vital Signs: Date Time Temp Pulse Resp B/P (MAP) Pulse Ox O2 Delivery O2 Flow Rate FiO2 06/14/18 11:27 109 19 143/104 96 Room Air 06/14/18 11:03 113 14 141/110 96 Room Air 06/14/18 10:16 113 13 218/126 99 Nebulizer 06/14/18 09:48 111 20 98 Room Air 06/14/18 09:35 102 13 154/109 97 Room Air 06/14/18 08:57 110 06/14/18 08:31 96 Nasal Cannula 4.0 06/14/18 08:31 90 Room Air 06/14/18 08:31 94 Nasal Cannula 4.0 06/14/18 08:10 36.7 114 24 167/116 93 Room Air GENERAL: 52-year-old female in mild to moderate respiratory distress, nontoxic- appearing, afebrile and hemodynamically stable. NEUROLOGICAL: Awake, alert and oriented to person, place and time. Answering questions appropriately and following commands. Normal gait. Good hand eye coordination. No focal motor sensory deficits. SKIN: Warm, dry and pink. No soft tissue eruptions or trauma noted. HEENT: Atraumatic and normocephalic. PERRLA. Sclera white and conjunctiva pink. No drainage from naris. Oral cavity moist and pink. Pharynx is nonerythematous or edematous. Speech normal. No lymphadenopathy. Trachea midline. No jugular venous distention. No carotid bruits. BACK: No tenderness over the bony spine. No CVA tenderness. THORAX: Lungs sounds diffuse inspiratory and expiratory wheezing in all phelps. No rales or rhonchi. Mild increased respiratory rate to 24 breaths per minute. No accessory muscle use or retractions. Equal bilaterally with symmetrical chest wall. No crepitus, tenderness, subcutaneous air or deformities noted. HEART: Tachycardic rate and rhythm. No gallops, rubs or murmurs are appreciated. PMI is not displaced. No lifts, heaves or thrills. ABDOMEN: Flat, soft and nontender. Positive bowel sounds in all quadrants. No guarding, rigidity or organomegaly. EXTREMITIES: Moves all extremities well on command and with purpose. All distal neurovascular statuses are intact and equal bilaterally. No calf tenderness or cords. ED Course: Patient is assessed as noted above. Patient's medication list was reviewed. Laboratory Testing: Test 06/14/18 08:20 06/14/18 09:41 Range/Units White Blood Count 4.15 4.8-10.8 K/uL Red Blood Count 4.83 4.2-5.4 M/uL Hemoglobin 14.1 12.0-16.0 g/dL Hematocrit 43.6 37-47 % Mean Corpuscular Volume 90.3 80-100 fL Mean Corpuscular Hemoglobin 29.2 25-34 pg Mean Corpuscular Hemoglobin Concent 32.3 32-36 g/dl Platelet Count 263 130-400 K/uL Mean Platelet Volume 11.3 7.4-10.4 fL Neutrophils (%) (Auto) 48.2 % Lymphocytes (%) (Auto) 38.1 % Monocytes (%) (Auto) 11.3 % Eosinophils (%) (Auto) 1.7 % Basophils (%) (Auto) 0.5 % Neutrophils # (Auto) 2.00 1.4-6.5 K/uL Lymphocytes # (Auto) 1.58 1.2-3.4 K/uL Monocytes # (Auto) 0.47 0.11-0.59 K/uL Eosinophils # (Auto) 0.07 0-0.5 K/uL Basophils # (Auto) 0.02 0-0.2 K/uL RDW Standard Deviation 49.0 36.4-46.3 fL RDW Coefficient of Variation 14.8 11.5-14.5 % Immature Granulocyte % (Auto) 0.2 % Immature Granulocyte # (Auto) 0.01 0.00-0.02 K/uL Sodium Level 142 136-145 mmol/L Potassium Level 4.0 3.5-5.1 mmol/L Chloride Level 106 98-107 mmol/L Carbon Dioxide Level 30 21-32 mmol/L Anion Gap 6.0 3-11 mmol/L Blood Urea Nitrogen 13 7-18 mg/dl Creatinine 1.02 0.60-1.20 mg/dl Est Creatinine Clear Calc Drug Dose 75.7 ml/min Estimated GFR () 72.2 Estimated GFR (Non- 62.3 BUN/Creatinine Ratio 12.3 10-20 Random Glucose 105 70-99 mg/dl Calcium Level 9.4 8.5-10.1 mg/dl Hepatitis C Antibody Screen NEG NEG Bedside D-Dimer 209 0-450 ng/mlFEU Bedside Troponin I < 0.030 0-0.045 ng/ml EKG: Was read by myself and shows sinus tachycardia with a ventricular rate of 105 bpm. Normal axis, intervals and complexes. No acute ST changes were noted. This EKG was impaired to a previous from June 06, 2018 and no EKG changes were noted. Chest X-Rays: Were read by myself and the radiologist showing no acute infiltrates, effusions or pneumothorax. Normal heart silhouette and bony anatomy. This was compared to previous and no acute changes were noted. Patient was initially hydrated with normal saline and received an albuterol/ Atrovent nebulizer breathing treatment. On reevaluation she felt no improvement from her treatment. I reassessed her lungs she continued to have diffuse scattered inspiratory and expiratory wheezing. Patient was then treated with an hour-long albuterol/Atrovent nebulizer breathing treatment, 60 mg of prednisone by mouth and 1 g of magnesium IV. On reevaluation she continued to have wheezing but did report she felt slight improvement of her shortness of breath. Patient was reassessed multiple times during her stay in the emergency department. Approximately group home through her hour-long breathing treatment was called to the patient's room because she reported she started feeling worse and was not feeling any. When I arrived and found her very anxious almost tearful and was concerned about her breathing. On reassessment her oxygen saturations were well , her respiratory rate was 20 and minimally increase in respiratory effort and her lungs showed that her wheezing was not worsened. I reviewed the case with Dr. Guadalupe, also evaluated the patient, we felt this to be mostly stress related so patient was given 1 mg of Ativan IV. I did go back and reassess her in approximately 10 minutes later and she reported that she was feeling better than she was previously and felt like her treatment was helping her symptoms. Patient's case was reviewed with Dr. Guadalupe; we agreed on diagnostic approach, treatment, disposition and plan. Patient's case was consulted with case management [facility]; for medical observation/admission. Patient was educated about today's findings. Clinical Impression: Status asthmaticus. Decision-Making: Initially my differential diagnosis I considered asthma exacerbation, status asthmaticus, pulmonary emboli, acute coronary syndrome, pneumonia and other causes. Disposition and Plan: Patient be brought into the hospital by Dr. Galicia for medical observation/admission; please see his notes and orders for final disposition and plan.
[2018-06-14] MEDS: METHYLPREDNISOLONE IV 60 MG in SYRINGE 0 ML IV SCH ×2 (17:49→21:00)
[2018-06-14 19:30] VITALS: PULSE 100; O2SAT 92
[2018-06-14] MEDS: BUDESONIDE/FORMOTEROL FUMARATE 160/4.5 60 PUFFS/INHALER INH SCH (20:59)
[2018-06-14] MEDS: FLUTICASONE PROPIONATE NA SPR 16 GM BTL NAE SCH (21:00)
[2018-06-14] MEDS: PAROXETINE 20 MG TAB PO SCH (21:00)
[2018-06-14] MEDS: PANTOprazole SOD 40 MG TAB PO SCH (21:02)
[2018-06-14] MEDS: ASPIRIN 81 MG ECTAB PO SCH (21:02)
[2018-06-14] MEDS: RANITIDINE HCL 150 MG TAB PO SCH (21:25)
[2018-06-14] MEDS: LORATADINE 10 MG TAB PO SCH (21:25)
[2018-06-14 23:19] VITALS: BP 136/79; PULSE 100; TEMP 36.7; O2SAT 95
[2018-06-15] VITALS (7 sets, daily range): BP systolic 127–144; BP diastolic 86–97; PULSE 91–106; TEMP 36.7–37.1; O2SAT 91–97
[2018-06-15] MEDS: ALBUT/IPRATROP 3MG/0.5MG NEB 3 ML VIAL INH SCH ×4 (07:06→18:54)
[2018-06-15] MEDS: FLUTICASONE PROPIONATE NA SPR 16 GM BTL NAE SCH ×2 (08:44→21:07)
[2018-06-15] MEDS: BUDESONIDE/FORMOTEROL FUMARATE 160/4.5 60 PUFFS/INHALER INH SCH ×2 (08:44→21:07)
[2018-06-15] MEDS: METHYLPREDNISOLONE IV 60 MG in SYRINGE 0 ML IV SCH ×4 (08:44→21:07)
[2018-06-15] MEDS: TIOTROPIUM BROMIDE 5 PUFF/90 MCG INH INH SCH (08:44)
[2018-06-15] MEDS: MONTELUKAST SOD 10 MG TAB PO SCH (08:45)
[2018-06-15] MEDS: DILTIAZEM HCL 120 MG CAPCR PO SCH (08:45)
[2018-06-15] MEDS: PANTOprazole SOD 40 MG TAB PO SCH ×2 (08:45→21:09)
[2018-06-15] MEDS: ATORVASTATIN 40 MG TAB PO SCH (08:45)
[2018-06-15] MEDS: CHOLECALCIFEROL 1000 INTER.UNIT TAB PO SCH (08:45)
[2018-06-15] MEDS: CLOPIDOGREL BISULFATE 75 MG TAB PO SCH (08:45)
[2018-06-15] MEDS: RANITIDINE HCL 150 MG TAB PO SCH ×2 (08:45→21:09)
[2018-06-15] MEDS: AZITHROMYCIN 250 MG TAB PO SCH (08:45)
--- NOTE | 2018-06-15 12:36 | Family Medicine Progress Note ---
Progress Note Date of Service Jun 15, 2018. Subjective Pt evaluation today including: conversation w/ patient, physical exam Pain: Denies pain PO Intake: Tolerating well Voiding: no voiding problems Patient feels dramatically better after starting IV decadron. She does recognize her own concern of what will happen when she leaves and steroids wear off. Constitutional: No fever, No chills Respiratory: + shortness of breath, No cough, No wheezing, No dyspnea at rest Cardiovascular: No chest pain Abdomen: No pain, No nausea Skin: No rash, No itch All Other Systems: Reviewed and Negative Medications Current Inpatient Medications Medications (Trade) Dose Ordered Sig/Donaldo Route Start Time Stop Time Status Last Admin Dose Admin Enoxaparin Sodium (Lovenox Inj) 40 mg Q24H SQ 06/14/18 16:00 07/14/18 15:59 Acetaminophen (Tylenol Tab) 650 mg Q4H PRN PO 06/14/18 11:45 07/14/18 11:44 Al Hydrox/Mg Hydrox/Simethicone (Maalox Max Susp) 15 ml Q4H PRN PO 06/14/18 11:45 07/14/18 11:44 Magnesium Hydroxide (Milk Of Magnesia Susp) 30 ml Q6H PRN PO 06/14/18 11:45 07/14/18 11:44 Polyethylene (Miralax Powder Packet) 17 gm DAILY PRN PO 06/14/18 11:45 07/14/18 11:44 Ondansetron HCl (Zofran Inj) 4 mg Q6H PRN IV 06/14/18 11:45 07/14/18 11:44 Albuterol Sulfate (Ventolin 0.083% 2.5MG/3ML Neb) 2.5 mg UD PRN INH 06/14/18 11:45 07/14/18 11:44 Aspirin (Ecotrin Tab) 81 mg QPM PO 06/14/18 21:00 07/14/18 20:59 06/14/18 21:02 81 MG Atorvastatin Calcium (Lipitor Tab) 40 mg QAM PO 06/15/18 09:00 07/15/18 08:59 06/15/18 08:45 40 MG Budesonide/ Formoterol Fumarate (Symbicort 160/ 4.5 Inh) 2 puffs BID INH 06/14/18 21:00 07/14/18 20:59 06/15/18 08:44 2 PUFFS Cholecalciferol (Vitamin D Tab) 1,000 inter.unit QAM PO 06/15/18 09:00 07/15/18 08:59 06/15/18 08:45 1,000 INTER.UNIT Clopidogrel Bisulfate (plAVix TAB) 75 mg QAM PO 06/15/18 09:00 07/15/18 08:59 06/15/18 08:45 75 MG Diltiazem HCl (Cardizem Cd Cap) 120 mg QAM PO 06/15/18 09:00 07/15/18 08:59 06/15/18 08:45 120 MG Epinephrine (Epipen) 0.3 mg UD PRN IM 06/14/18 11:45 07/14/18 11:44 Fluticasone Propionate (Flonase Nasal [place]) 1 sprays BID JETT 06/14/18 21:00 07/14/18 20:59 06/15/18 08:44 1 SPRAYS Albuterol/ Ipratropium (Duoneb) 3 ml QID PRN INH 06/14/18 11:45 07/14/18 11:44 Loratadine (Claritin Tab) 10 mg QPM PO 06/14/18 21:00 07/14/18 20:59 06/14/18 21:25 10 MG Montelukast Sodium (Singulair Tab) 10 mg QAM PO 06/15/18 09:00 07/15/18 08:59 06/15/18 08:45 10 MG Nitroglycerin (Nitrostat Tab) 0.4 mg UD PRN UT 06/14/18 11:45 07/14/18 11:44 Paroxetine HCl (pAXil TAB) 10 mg HS PO 06/14/18 21:00 07/14/18 20:59 Ranitidine HCl (zANTac TAB) 150 mg BID PO 06/14/18 21:00 07/14/18 20:59 06/15/18 08:45 150 MG Pantoprazole Sodium (Protonix Tab) 40 mg BID PO 06/14/18 21:00 07/14/18 20:59 06/15/18 08:45 40 MG Tiotropium [place] (Spiriva [place]er Inhaler) 1 puff QAM INH 06/15/18 09:00 07/15/18 08:59 06/15/18 08:44 1 PUFF Azithromycin (Zithromax Tab) 250 mg QAM PO 06/15/18 09:00 06/22/18 08:59 06/15/18 08:45 250 MG Methylprednisolone Sodium Succinate 60 mg/Syringe 0.96 ml @ 1.5 mls/min QID IV 06/14/18 17:00 06/15/18 23:45 06/15/18 08:44 1.5 MLS/MIN Albuterol/ Ipratropium (Duoneb) 3 ml QIDR INH 06/14/18 16:00 07/14/18 15:59 06/15/18 11:10 3 ML Objective Vital Signs Date Time Temp Pulse Resp B/P (MAP) Pulse Ox O2 Delivery O2 Flow Rate FiO2 06/15/18 11:10 106 16 91 Room Air 06/15/18 08:03 36.8 98 18 127/88 (101) 97 Room Air 06/15/18 08:00 Room Air 06/15/18 07:06 92 16 96 Room Air 06/14/18 23:44 Room Air 06/14/18 23:19 36.7 100 18 136/79 (98) 95 Room Air 06/14/18 19:30 100 16 92 Room Air 06/14/18 16:30 Room Air 06/14/18 15:00 37.1 118 18 113/75 (88) 95 06/14/18 14:46 118 16 95 Room Air 06/14/18 13:00 37.1 125 20 139/86 95 Room Air 06/14/18 12:43 116 20 126/89 98 Physical Exam General Appearance: WD/WN, no apparent distress Eyes: PERRL, EOMI ENT: hearing grossly normal Neck: no adenopathy, trachea midline Respiratory/Chest: lungs clear, normal breath sounds, no respiratory distress, no accessory muscle use Cardiovascular: regular rate, rhythm, no edema, no murmur Abdomen: normal bowel sounds, non tender, soft Extremities: normal inspection, no calf tenderness Neurologic/Psychiatric: alert, normal mood/affect, oriented x 3 Skin: normal color, warm/dry, no rash Laboratory Results Last Resulted 06/14/18 08:20 Red Blood Count 4.83, Mean Corpuscular Volume 90.3, Mean Corpuscular Hemoglobin 29.2, Mean Corpuscular Hemoglobin Concent 32.3, Mean Platelet Volume 11.3, Neutrophils (%) (Auto) 48.2, Lymphocytes (%) (Auto) 38.1, Monocytes (%) (Auto) 11.3, Eosinophils (%) (Auto) 1.7, Basophils (%) (Auto) 0.5, Neutrophils # (Auto ) 2.00, Lymphocytes # (Auto) 1.58, Monocytes # (Auto) 0.47, Eosinophils # (Auto ) 0.07, Basophils # (Auto) 0.02 Last Resulted 06/14/18 08:20 Past 24 Hours Test 06/14/18 14:41 Range/Units Prothromb Time International Ratio 1.0 0.9-1.1 Prothrombin Time 10.0 9.0-12.0 SECONDS Assessment and Plan Patient is a 52 yo F with PMH of mild-moderate persistent asthma, COPD ( diagnosed on PFTs 2016), CAD s/p stenting 2015, GERD, HTN, Sjogren's who presented in status asthmaticus/acute asthma exacerbation Acute exacerbation -patient clinically improving -solumedrol 60 mg q6h, will stop this evening and convert to PO prednisone tomorrow am -duonebs qid and q2h prn -continue home symbicort, spiriva, flonase -Zithromax day [address] Lucas HTN/CAD -Continue home atorvastatin, ASA, plavix, diltiazem, nitro prn Depression - Continue home paxil GERD -home zantac converted to protonix DVTP: lovenox Code: Full Dispo: med/surg, possible DC home tomorrow Resident Tracking Resident Involvement: Resident Care Provided Care Provided: Adult Hospital Medicine Reviewed: Pt Seen/Exam by Me History much improved today. Constitutional: denies: fever Respiratory: negative: short of breath Cardiovascular: denies chest pain General Appearance: no apparent distress Respiratory: lungs clear, no respiratory distress Cardiovascular: regular rate, rhythm Neurologic/Psychiatric: alert, oriented x 3 Skin Characteristics: warm/dry Assessment/Plan Resident Physician Supervision Note: I independently interviewed and examined the patient and verified the kaur history and physical, reviewed labs and image studies, discussed the case with the resident Dr. Ross and agree with the findings and care plan.
[2018-06-15] MEDS ORDERED: METHYLPREDNISOLONE IV 60 MG in SYRINGE 0 ML IV SCH (15:00)
[2018-06-15] MEDS: ENOXAPARIN 40 MG/0.4 ML SYR SQ SCH (16:00)
[2018-06-15] MEDS: PAROXETINE 20 MG TAB PO SCH (21:00)
[2018-06-15] MEDS: ASPIRIN 81 MG ECTAB PO SCH (21:08)
[2018-06-15] MEDS: LORATADINE 10 MG TAB PO SCH (21:08)
[2018-06-16 07:04] VITALS: PULSE 95; O2SAT 96
[2018-06-16] MEDS: ALBUT/IPRATROP 3MG/0.5MG NEB 3 ML VIAL INH SCH ×2 (07:04→11:13)
[2018-06-16 07:35] VITALS: BP 112/76; PULSE 94; TEMP 37.2; O2SAT 96
[2018-06-16] MEDS: TIOTROPIUM BROMIDE 5 PUFF/90 MCG INH INH SCH (08:44)
[2018-06-16] MEDS: BUDESONIDE/FORMOTEROL FUMARATE 160/4.5 60 PUFFS/INHALER INH SCH (08:44)
[2018-06-16] MEDS: FLUTICASONE PROPIONATE NA SPR 16 GM BTL NAE SCH (08:44)
[2018-06-16] MEDS: MONTELUKAST SOD 10 MG TAB PO SCH (08:45)
[2018-06-16] MEDS: RANITIDINE HCL 150 MG TAB PO SCH (08:45)
[2018-06-16] MEDS: AZITHROMYCIN 250 MG TAB PO SCH (08:45)
[2018-06-16] MEDS: PANTOprazole SOD 40 MG TAB PO SCH (08:45)
[2018-06-16] MEDS: ATORVASTATIN 40 MG TAB PO SCH (08:45)
[2018-06-16] MEDS: CHOLECALCIFEROL 1000 INTER.UNIT TAB PO SCH (08:45)
[2018-06-16] MEDS: CLOPIDOGREL BISULFATE 75 MG TAB PO SCH (08:45)
[2018-06-16] MEDS: DILTIAZEM HCL 120 MG CAPCR PO SCH (08:45)
[2018-06-16 11:13] VITALS: PULSE 92; O2SAT 96
[2018-06-16] MEDS ORDERED: PRED10TA PO (12:44)
[2018-06-16] MEDS ORDERED: AZIT-57 PO (12:44)
--- NOTE | 2018-06-16 12:58 | Discharge Instructions ---
Discharge Instructions Date of Service Jun 16, 2018. Admission Reason for Admission: Acute Asthma Exacerbation Discharge Discharge Diagnosis / Problem: Asthma exacerbation Discharge Goals Goal(s): Improve disease control, Therapeutic intervention, Prevent Disease Progression Activity Recommendations Activity Limitations: per Instructions/Follow-up section . Instructions / Follow-Up Instructions / Follow-Up During this admission you were evaluated and treated for an acute exacerbation of your asthma. You were treated with IV steroids and responded well. You will be given a taper of 12 days of steroids. Please take these as prescribed and finish all of these tablets. You were also prescribed an antibiotic, as current evidence indicates based on your level of respiratory disease, it should hasten your recovery. Please finish all tablets in the next 3 days. We recommend you follow up with your primary care provider or client solutions manager within 7-10 days of discharge from the hospital to discuss this visit and discuss your current medication regimen for your respiratory condition. If your symptoms return or worsen, please return to the ED. Current Hospital Diet Patient's current hospital diet: Regular Diet Discharge Diet Recommended Diet: Regular Diet Pending Studies Studies pending at discharge: no Medical Emergencies . Who to Call and When: Medical Emergencies: If at any time you feel your situation is an emergency, please call 911 immediately. . Non-Emergent Contact Non-Emergency issues call your: Primary Care Provider, Floor Installation Mechanic . . "Provider Documentation" section prepared by Mariposa Ross. .
[2018-06-16 13:25] VITALS: BP 112/76; PULSE 92; TEMP 37.2; O2SAT 96
--- NOTE | 2018-06-16 19:45 | Discharge Summary ---
Discharge Summary Date of Service Jun 16, 2018. Discharge Summary Admission Date: Jun 14, 2018 at 11:39 Discharge Date: Jun 16, 2018 Discharge Disposition: Home Principal Diagnosis: Asthma exacerbation Problems/Secondary Diagnoses: COPD (diagnosed on PFTs 2016), CAD s/p stenting 2015, GERD, HTN, Sjogren's, Depression Immunizations: Have You Had Influenza Vaccine: Yes Influenza Vaccine Date: Nov 03, 2012 History of Tetanus Vaccine?: Yes History of Pneumococcal: No History of Hepatitis B Vaccine: No Medication Reconciliation New Medications: Prednisone Tab (Prednisone) 10 Mg Tab 10 MG PO DAILY for 12 Days, #39 TAB 60 mg x 3 days 40 mg x 3 days 20 mg x 3 days 10 mg x 3 days Azithromycin (Azithromycin) 250 Mg Tab 250 MG PO QAM for 3 Days, #3 TAB Continued Medications: Albuterol Sulf (Proventil 0.083% 2.5MG/3ML) 2.5 Mg/3 Ml Nebu 2.5 MG INH UD PRN for Shortness of Breath, EA Aspirin (Aspirin Ec) 81 Mg Tab 81 MG PO QPM Atorvastatin (Lipitor) 80 Mg Tab 80 MG PO HS, TAB Budesonide/Formoterol Fumarate (Symbicort 160/4.5 Inhaler ) Aero 2 PUFFS INH BID, INHALER Cholecalciferol (Vitamin D) 1,000 Unit Tab 1000 UNITS PO QAM Clopidogrel (Plavix) 75 Mg Tab 75 MG PO QAM Diltiazem Hcl Coated Beads (Diltiazem Hcl Er) 120 Mg Cap 120 MG PO QAM Epinephrine (Epipen 2-Serjio) 0.3 Mg Inj 0.3 MG INJ UD Fluticasone Propionate (Nasal) (Allergy Nasal [place] 24 Ho) 50 Mcg/Act Spr 2 SPRAY JETT BID Ipratropium-Albuterol (Duoneb) 3 Ml Nebu 3 ML NEB QID PRN for Asthma Symptoms Loratadine (Claritin) 10 Mg Tab 10 MG PO QPM, TAB Montelukast Sodium (Singulair) 10 Mg Tab 10 MG PO QAM Nitroglycerin (Nitrostat) 0.4 Mg Tab 0.4 MG UT UD PRN for Chest Pain Pantoprazole Sodium (Protonix) 20 Mg Tab 20 MG PO BID Paroxetine Hcl (Paxil) 10 Mg Tab 10 MG PO HS, TAB Ranitidine HCl (Ranitidine HCl) 150 Mg Tab 150 MG PO BID Tiotropium [place] (Spiriva Respimat) 2.5 Mcg/Act Spr 2 PUFF INH QAM, INHALER Discharge Exam Review of Systems: Constitutional: No fever, No chills Respiratory: + cough, No wheezing, No shortness of breath, No hemoptysis Cardiovascular: No chest pain Abdomen: No nausea, No vomiting Integumentary: No rash, No itch Physical Exam: General Appearance: WD/WN, no apparent distress Eyes: EOMI ENT: hearing grossly normal Neck: no adenopathy Respiratory/Chest: lungs clear, normal breath sounds, no respiratory distress, no accessory muscle use Cardiovascular: regular rate, rhythm, no edema, no murmur Abdomen / GI: normal bowel sounds, non tender, soft Extremities: normal inspection, no pedal edema Neurologic/Psychiatric: primary care nurse practitioner II-XII nml as tested, no motor/sensory deficits , alert, normal mood/affect, normal reflexes, oriented x 3 Skin: normal color, no rash Hospital Course Patient is a 52 yo F with PMH of mild-moderate persistent asthma, COPD ( diagnosed on PFTs 2016), CAD s/p stenting 2016, GERD, HTN, Sjogren's who presented with an acute asthma exacerbation Acute asthma exacerbation -solumedrol 60 mg q6h x 24 hours, converted to 60 mg prednisone with 12 day taper -continue home symbicort, spiriva, flonase -Zithromax, 5 day course in total added Zithromax to cover for atypicals. She does not show any infiltrate; however, given that she is technically chronic obstructive pulmonary disease with her asthma obviously there is good evidence in shorter length of stay and faster improvement when covering atypicals in the chronic obstructive pulmonary disease population HTN/CAD -Continue home atorvastatin, ASA, plavix, diltiazem, nitro prn Depression - Pt declined use of paxil as she was told it would contribute to GERD GERD -home zantac converted to protonix Total Time Spent: Greater than 30 minutes This includes examination of the patient, discharge planning, medication reconciliation, and communication with other providers. Discharge Instructions Please refer to the electronic Patient Visit Report (Discharge Instructions) for additional information. Additional Copies To Uma Ocampo M.D. Resident Tracking Resident Involvement: Resident Care Provided Care Provided: Adult Hospital Medicine Reviewed: Pt Seen/Exam by Me History breathing back to normal Constitutional: denies: fever Respiratory: negative: short of breath Cardiovascular: denies chest pain General Appearance: no apparent distress Respiratory: lungs clear, no respiratory distress Cardiovascular: regular rate, rhythm Neurologic/Psychiatric: alert, oriented x 3 Skin Characteristics: warm/dry Assessment/Plan Resident Physician Supervision Note: I independently interviewed and examined the patient and verified the kaur history and physical, reviewed labs and image studies, discussed the case with the resident Dr. Ross and agree with the findings and care plan. Time spent in discharge 35
== END 2018-06-16 14:14 | disposition home or self-care (01) | DRG 203 ==
LOC: C.EDB 07:54 → C.MS2W 11:39 → ENRESERV 12:15
PROVIDERS: ADMIT Family Medicine; ATTEND Family Medicine
DX: J45.42 Moderate persistent asthma with status asthmaticus (principal); E78.5 Hyperlipidemia, unspecified; I10 Essential (primary) hypertension; E03.9 Hypothyroidism, unspecified; K21.9 Gastro-esophageal reflux disease without esophagitis; I25.10 Atherosclerotic heart disease of native coronary artery without angina pectoris; F32.9 Major depressive disorder, single episode, unspecified; Z79.02 Long term (current) use of antithrombotics/antiplatelets; Z79.82 Long term (current) use of aspirin; Z79.899 Other long term (current) drug therapy

== ENCOUNTER 2018-07-12 03:35 | Emergency (ER) | payer OTHER ==
[~2018-07-12] VITALS: Ht 177.8 cm; Wt 91.4 kg
[~2018-07-12 03:35] MED LIST changes: +AZIT-57 PO
[2018-07-12 03:37] VITALS: TEMP 36.7; Ht 177.8 cm; Wt 91.4 kg
[2018-07-12] MEDS ORDERED: METHYLPREDNISOLONE 125 MG VIAL IV STA (03:59)
[2018-07-12] MEDS ORDERED: MAGNESIUM SULFATE 1GM / D5W 100 ML IV STA (03:59)
[2018-07-12] MEDS ORDERED: ALBUT/IPRATROP 3MG/0.5MG NEB 3 ML VIAL INH ONE (04:00)
[2018-07-12 04:05] VITALS: O2SAT 98
[2018-07-12 04:07] VITALS: PULSE 100; O2SAT 96
--- NOTE | 2018-07-12 04:42 | EMERGENCY ROOM VISIT NOTE ---
History First contact with patient: 03:48 Chief Complaint: RESPIRATORY PROBLEMS Stated Complaint: ASTHMA Nursing Triage Summary: Pt c/o asthma and shortness of breath worsening the past week, yesterday around 630pm symptoms had gotten severe. Pt states that she feels extremely weak, short of breath, wheezing. Pt has used home nebulizers with no relief. Pt unable to lay down. History of Present Illness The patient is a 52 year old female who presents to the Emergency Room with complaints of an asthma exacerbation. The patient states that she has a history of poorly controlled asthma. She states that she has had a flareup which started yesterday morning. Her symptoms worsened in the evening. For the past several hours she has been waking up for a nebulizer every hour. She has chest tightness, shortness of breath and cough. She denies any chest pain. She does report that her allergies seem to have been flaring up of the past few days. She uses daily inhalers as well as daily Singulair and Claritin. She recently was on prednisone as a preventative treatment during a trip to [place]. She finished the prednisone about 5 days ago. She states the symptoms are typical for her asthma exacerbations. Review of Systems A complete 10 point review of systems was reviewed with the patient with pertinent positives and negatives as per history of present illness. All else were negative. 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 (8) Non-STEMI (non-ST elevated myocardial infarction) (9) Uterine Leiomyoma Nos Surgical Problems: (1) History of appendectomy (2) History of heart catheterization (3) History of hemicolectomy Family History Cancer Diabetes mellitus Heart disease Hypertension Social History Smoking Status: Never Smoker Alcohol Use: none Drug Use: none Marital Status: Housing Status: lives with family Occupation Status: employed Current/Historical Medications Scheduled Aspirin (Aspirin Ec), 81 MG PO QPM Atorvastatin (Lipitor), 80 MG PO HS Budesonide/Formoterol Fumarate (Symbicort 160/4.5 Inhaler ), 2 PUFFS INH BID Cholecalciferol (Vitamin D), 1,000 UNITS PO QAM Clopidogrel (Plavix), 75 MG PO QAM Diltiazem Hcl Coated Beads (Diltiazem Hcl Er), 120 MG PO QAM Epinephrine (Epipen 2-Serjio), 0.3 MG INJ UD Fluticasone Propionate (Nasal) (Allergy Nasal [place] 24 Ho), 2 SPRAY JETT BID Loratadine (Claritin), 10 MG PO QPM Montelukast Sodium (Singulair), 10 MG PO QAM Pantoprazole Sodium (Protonix), 20 MG PO BID Paroxetine Hcl (Paxil), 10 MG PO HS Ranitidine HCl (Ranitidine HCl), 150 MG PO BID Tiotropium [place] (Spiriva Respimat), 2 PUFF INH QAM Scheduled PRN Albuterol Sulf (Proventil 0.083% 2.5MG/3ML), 2.5 MG INH UD PRN for Shortness of Breath Ipratropium-Albuterol (Duoneb), 3 ML NEB QID PRN for Asthma Symptoms Nitroglycerin (Nitrostat), 0.4 MG UT UD PRN for Chest Pain Physical Exam Vital Signs Date Time Temp Pulse Resp B/P (MAP) Pulse Ox O2 Delivery O2 Flow Rate FiO2 07/12/18 05:57 90 16 128/78 99 07/12/18 05:26 99 Room Air 07/12/18 05:00 125/91 07/12/18 04:35 93 16 99 Nebulizer 07/12/18 04:07 100 16 96 Room Air 07/12/18 04:05 98 Room Air 07/12/18 04:00 138/89 07/12/18 03:50 98 Room Air 07/12/18 03:50 96 07/12/18 03:44 150/110 07/12/18 03:37 36.7 103 16 152/91 96 Room Air Physical Exam VITALS: Vitals are noted on the nurse's note and reviewed by myself. Vital signs stable. GENERAL: This is a 52-year-old female, in no acute distress, nondiaphoretic, well-developed well-nourished. SKIN: The skin was without rashes. EARS: External auditory canals clear, tympanic membranes pearly randolph without erythema or effusion bilaterally. EYES: Pupils equal round and reactive to light and accommodation. MOUTH: Mucous membranes moist. Tonsils are not enlarged. Pharynx without erythema or exudate. NECK: Supple without nuchal rigidity. No lymphadenopathy. HEART: Regular rate and rhythm without murmurs gallops or rubs. LUNGS: Inspiratory and expiratory wheezes throughout all lung phelps. Diminished lung sounds bilateral bases. No accessory muscle use. NEURO: Patient was alert and oriented to person place and time. Medical Decision & Procedures Medications Administered Medications (Trade) Dose Ordered Sig/Donaldo Route Start Time Stop Time Status Last Admin Dose Admin Albuterol/ Ipratropium (Duoneb) 12 ml ONE ONCE INH 07/12/18 04:00 07/12/18 04:04 DC 07/12/18 04:08 12 ML Magnesium Sulfate 100 ml @ 100 mls/hr NOW STAT IV 07/12/18 03:59 07/12/18 04:58 DC 07/12/18 04:09 100 MLS/HR Methylprednisolone Sodium Succinate (Solu-Medrol IV) 125 mg NOW STAT IV 07/12/18 03:59 07/12/18 04:04 DC 07/12/18 04:09 125 MG ED Course The patient was evaluated as above. Labs were drawn and IV access was obtained. Patient was medicated with an hour-long DuoNeb, 125 mg Solu-Medrol IV and 1 g magnesium sulfate IV. Patient was reevaluated and states she is feeling much better. Discharge instructions were reviewed with the patient. The patient verbalized understanding of my assessment and treatment plan and was discharged home in good condition. Medical Decision Differential diagnosis includes asthma exacerbation, COPD exacerbation, pneumonia, PE, pneumothorax, among others. The patient was evaluated as above. She presents with symptoms consistent with previous asthma exacerbations. The patient has significant wheezing on exam consistent with asthma. She was given an hour-long DuoNeb treatment, 1 mg magnesium IV, and 125 mg Solu-Medrol. On reevaluation, the patient feels significantly better and is much less wheezy. The patient does have a local loom repairer and I recommended that she contact them today to schedule follow- up and discussion of a possible steroid taper. She was encouraged to return here at any time if her symptoms worsen or if the need arises. She verbalized understanding of my assessment and treatment plan and was discharged home in good condition. Medication Reconcilliation Current Medication List: was personally reviewed by me Blood Pressure Screening Patient's blood pressure: Normal blood pressure Impression Primary Impression: Asthma exacerbation Departure Information Dispostion Home / Self-Care Condition GOOD Referrals Uma Ocampo M.D. (PCP) Patient Instructions My [facility] Additional Instructions Contact your loom repairer by phone today regarding follow up and any further treatment. Return to the emergency department with any worsening shortness of breath, chest pain or other new/concerning symptoms. Problem Qualifiers Primary Impression: Asthma exacerbation Asthma severity: unspecified severity Asthma persistence: unspecified Qualified Codes: J45.901 - Unspecified asthma with (acute) exacerbation
[2018-07-12 05:57] VITALS: BP 128/78; PULSE 90; O2SAT 99
== END 2018-07-12 05:58 | disposition home or self-care (01) ==
LOC: C.EDB 03:36 → C.EDA 05:58
DX: J45.901 Unspecified asthma with (acute) exacerbation (principal); E78.5 Hyperlipidemia, unspecified; I10 Essential (primary) hypertension; Z79.02 Long term (current) use of antithrombotics/antiplatelets; Z79.82 Long term (current) use of aspirin; I25.2 Old myocardial infarction

== ENCOUNTER 2021-09-28 19:44 | Observation (INO) ==
[2021-09-28 20:16] LABS: Basophils # (auto) 0.01 K/uL (0-0.2); Basophils % (auto) 0.2 %; Eosinophils # (auto) 0.26 K/uL (0-0.5); Eosinophils % (auto) 4.8 %; Hematocrit (blood only) 40.4 % (37-47); Hemoglobin 13.2 g/dL (12.0-16.0); Immature Granulocytes # (auto) 0.01 K/uL (0.00-0.02); Immature Granulocytes % (auto) 0.2 %; Lymphocytes # (auto) 1.12 K/uL (1.2-3.4); Lymphocytes % (auto) 20.7 %; Mean Corpuscular Hemoglobin 29.2 pg (25-34); Mean Corpuscular Hgb Conc 32.7 g/dL (32-36); Mean Corpuscular Volume 89.4 fL (80-100); Mean Platelet Volume 10.6 fL (7.4-10.4); Monocytes # (auto) 0.51 K/uL (0.11-0.59); Monocytes % (auto) 9.4 %; Neutrophils % (auto) 64.7 %; Platelet Count 230 K/uL (130-400); RDW Coefficient of Variation 14.6 % (11.5-14.5); RDW Standard Deviation 47.7 fL (36.4-46.3); Red Blood Count 4.52 M/uL (4.2-5.4); White Blood Count 5.41 K/uL (4.8-10.8)
[2021-09-28] MEDS ORDERED: dexAMETHasone**PF** 10 MG/ML VIAL IV ONE (20:19)
[2021-09-28] MEDS ORDERED: ALBUT/IPRATROP 3MG/0.5MG NEB 3 ML VIAL NEB STA ×2 (20:19→22:42)
[2021-09-28 20:32] LABS: BUN Creatinine Ratio 10.1 (10-20); Blood Urea Nitrogen 12 mg/dl (7-18); Calcium 8.6 mg/dl (8.5-10.1); Carbon Dioxide 24 mmol/L (21-32); Chloride 106 mmol/L (98-107); Creatinine Clr Calc Pharmacy 64.6 ml/min; Est GFR (African American) 61.4 ml/min; Glucose 90 mg/dl (70-99); Potassium 3.5 mmol/L (3.5-5.1); Sodium 139 mmol/L (136-145)
--- NOTE | 2021-09-28 20:34 | XRay Report ---
XR chest 1V portable CLINICAL HISTORY: dyspnea TECHNIQUE: Single frontal radiograph of the chest was obtained. Comparison: Comparison is made to chest one view 12/12/2020 FINDINGS: No lines and tubes are seen. The cardiomediastinal silhouette is normal. The lungs are clear. No evid ence of pleural effusion or pneumothorax. IMPRESSION: No acute chest disease. ACT 112: Negative or not required by law. Electronically signed by: Irwin Underwood M.D. 09/28/2021 8:33 PM
[2021-09-28 20:59] LABS: Troponin I < 0.015 ng/ml (0-0.045)
[2021-09-28 21:06] LABS: D Dimer 280 ug/L FEU (0-500)
--- NOTE | 2021-09-28 21:17 | Emergency Department Note ---
Impression & Plan COVID-19, Shortness of breath, Tachycardia, History of asthma ED Provider Note INFORMANT: Patient ED PROVIDER(S): Troy Grove MD CHIEF COMPLAINT: Shortness of breath PLAN: Disposition: Admitted Condition: Good Outpatient prescription management: none Referral: None MEDICAL DECISION MAKING: Patient presented because of shortness of breath. She was concerned about her asthma history. She does have a significant problem with asthma. She was very tachycardic. She was given Decadron and a DuoNeb. Chest x-ray was unremarkable. ECG showed a sinus tachycardia. The patient was reassessed and noted minimal improvement. She was given a second neb treatment as well as IV magnesium. Her CBC and chemistries were unremarkable. The patient's D-dimer was negative. Troponin was negative. Patient's Covid test was positive. Patient's ambulatory pulse ox was 91%. Given the patient's severe asthma issues, her significant tachycardia, and her low pulse ox further management in the hospital was deemed appropriate. Consultation was made with Dr. Drake Dunn of the [facility] service. Patient was evaluated in the ER for further management. Triage Nursing notes reviewed and agree them. Vital Signs: reviewed and remarkable for significant tachycardia Differential diagnosis: Reactive airway disease, pneumonia, pneumothorax, COPD, CHF, infections, cardiac ischemia, pulmonary embolism, musculoskeletal, gastrointestinal, as well as other pathologies. Diagnostics interpreted by me: EC Lead ECG performed and revealed sinus tachycardic rhythm at 127 bpm. Normal [place], QRS normal. No elevation or depression. No PACs or PVCs Cardiac Monitoring: Cardiac monitoring ordered by me: The patient was placed on continuous cardiac monitoring and observed. It revealed sinus tachycardia at 131 beats per minute without ectopy or evidence of dysrhythmia. Imaging studies: Chest x-ray. Findings: A chest x-ray was performed and revealed no pneumothorax, effusion, infiltrate, pulmonary edema, free air under the diaphragm, or wide mediastinum. Impression: No acute disease. CT scan of the chest is pending. HPI: The patient is a 56 year old female who presents to the Emergency Room with complaints of shortness of breath. This started several days ago and is wor sening. The patient also notes the following associated symptoms, heaviness in her chest, difficulty taking a deep breath. The patient has tried her nebulizers for relieving factors. Current pain is rated as 0/10. Patient has a history of asthma.. Her daughter lives with her. She does note her daughter tested positive. Her daughter had an exposure 5 days ago. She does note she had a negative Covid test done denies LOC, headache, fevers, chills, diaphoresis, visual changes, neck pain, chest pain, nausea, vomiting, abdominal pain, back pain, melena, hematochezia, urinary symptoms, numbness, weakness, lymphadenopathy, rash, or other complaints. ROS: See above HPI for pertinent positives & negatives. A total of 10 systems reviewed and were otherwise negative. PAST MEDICAL HISTORY:See Below , asthma PAST SURGICAL HISTORY:See Below, FAMILY HISTORY:See Below SOCIAL HISTORY:See Below, non-smoker HOME MEDICATIONS:See Below ALLERGIES:See Below VITALS:See Below PHYSICAL EXAMINATION: GENERAL: Awake, alert, dyspneic-appearing, in no distress HENT: Normocephalic, atraumatic. Oropharynx unremarkable. EYES: Normal conjunctiva. Sclera non-icteric. NECK: Inspection normal. Non-tender. Supple. No nuchal rigidity. FROM. No masses. RESPIRATORY: Clear to auscultation. No wheezes. No rales. Increased respiratory effort. CARDIAC: Tachycardic rate. Normal rhythm. No murmurs. No rubs. Extremities warm and well perfused. Pulses equal. No JVD. GI: Soft, non-distended. No tenderness to palpation. No rebound or guarding. No masses. RECTAL: Deferred. MUSCULOSKELETAL: Atraumatic. Chest examination reveals no tenderness. The back is symmetrical on inspection without obvious abnormality. There is no CVA tenderness to palpation. No joint edema. LOWER EXTREMITIES: Calves are equal size bilaterally and non-tender. No edema. No discoloration. NEURO: Normal sensorium. No sensory or motor deficits noted. SKIN: No rash or jaundice noted. Troy Grove MD Past Med/Surg History Medical History Anxiety CAD (coronary artery disease) Carcinoid tumor GERD (gastroesophageal reflux disease) HTN (hypertension), benign Hyperlipidemia Hypokalemia Leukopenia Non-STEMI (non-ST elevated myocardial infarction) Sjogrens syndrome Tachycardia Surgical History History of appendectomy History of bilateral breast reduction surgery History of hemicolectomy S/P coronary artery stent placement Family History Other Family history non-contributory Social History Smoking Status: Never smoker Second Hand Exposure: No; Hx Alcohol Use: Yes Alcohol type: wine Hx Substance Use: No Preferred Language: Upper Sorbian Communication Ability: Effective 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 Beliefs That Will Affect Care: None marital status: / Current Living Situation: Family current occupational status: employed current occupation: [employer] Feels Safe at Home: Yes Assistive Devices: Glasses Allergies Allergies Allergy/AdvReac Type Severity Reaction Status Date / Time No Known Drug Allergies Allergy Unknown Verified 09/28/21 20:53 Home Meds Home Medications Medication Instructions Recorded Confirmed aspirin 81 mg tablet,delayed 81 mg PO DAILY tab 01/11/21 09/28/21 release budesonide-formoterol HFA 160 2 puff INHALATION DAILY g 06/12/21 09/28/21 mcg-4.5 mcg/actuation aerosol inhaler (Symbicort) Previous Rx's Medication Instructions Recorded albuterol sulfate 90 mcg/actuation 2 inh INHALATION Q4H PRN #18 g 09/06/20 aerosol inhaler ipratropium 0.5 mg-albuterol 3 mg 3 ml INHALATION QID PRN #360 ml 10/29/20 (2.5 mg base)/3 mL nebulization soln nitroglycerin 0.4 mg sublingual 0.4 mg SL Q5M PRN #20 tab 11/29/20 tablet atorvastatin 80 mg tablet 80 mg PO DAILY #30 tab 01/11/21 diltiazem HCl 240 mg 240 mg PO DAILY #30 cap 01/11/21 capsule,extended release 24 hr clopidogrel 75 mg tablet 75 mg PO QAM #90 tab 02/25/21 dupilumab 300 mg/2 mL subcutaneous 300 mg SQ Q14D #4 ml 04/18/21 syringe ([id number]) montelukast 10 mg tablet 10 mg PO DAILY #30 tab 09/06/21 Results & Data (ED) Vital Signs Vital Signs - 24 hr 09/28/21 19:45 09/28/21 20:45 09/28/21 20:46 Temperature 37.2 C Temperature Source Temporal Artery Scan Pulse Rate 146 H 131 H 131 H Pulse Rate [Apical] Pulse Rate from SpO2 Sensor Respiratory Rate 18 Respiratory Effort / Characteristics Non-Labored Spontaneous Respiratory Depth Normal Blood Pressure 173/104 H Blood Pressure [Right Arm] Blood Pressure Mean 127 Blood Pressure Mean [Right Arm] Pulse Oximetry 97 96 96 Pulse Oximetry [Exercises] Pulse Oximetry [Recovery] Pulse Oximetry [Resting] Oxygen Delivery Method Room Air Room Air Sepsis Recent Fever Within 48 Hours No Sepsis New/Unexplained Change in Mental Status No Sepsis Action Taken by Nursing No Action Required 09/28/21 21:07 09/28/21 21:09 09/28/21 21:30 Temperature Temperature Source Pulse Rate 123 H 114 H Pulse Rate [Apical] Pulse Rate from SpO2 Sensor 123 H 115 H Respiratory Rate 11 L 13 Respiratory Effort / Characteristics Respiratory Depth Blood Pressure Blood Pressure [Right Arm] Blood Pressure Mean Blood Pressure Mean [Right Arm] Pulse Oximetry 96 97 95 Pulse Oximetry [Exercises] Pulse Oximetry [Recovery] Pulse Oximetry [Resting] Oxygen Delivery Method Room Air Room Air Room Air Sepsis Recent Fever Within 48 Hours Sepsis New/Unexplained Change in Mental Status Sepsis Action Taken by Nursing 09/28/21 21:35 09/28/21 21:52 09/28/21 22:00 Temperature Temperature Source Pulse Rate 123 H Pulse Rate [Apical] 110 H 122 H Pulse Rate from SpO2 Sensor 123 H Respiratory Rate 14 20 14 Respiratory Effort / Characteristics Non-Labored Spontaneous Respiratory Depth Blood Pressure Blood Pressure [Right Arm] 165/99 H Blood Pressure Mean Blood Pressure Mean [Right Arm] 121 Pulse Oximetry 96 95 95 Pulse Oximetry [Exercises] Pulse Oximetry [Recovery] Pulse Oximetry [Resting] Oxygen Delivery Method Room Air Room Air Room Air Sepsis Recent Fever Within 48 Hours Sepsis New/Unexplained Change in Mental Status Sepsis Action Taken by Nursing 09/28/21 22:30 09/28/21 23:00 09/28/21 23:05 Temperature Temperature Source Pulse Rate 120 H 120 H Pulse Rate [Apical] 122 H Pulse Rate from SpO2 Sensor 119 H 123 H Respiratory Rate 14 13 20 Respiratory Effort / Characteristics Spontaneous Respiratory Depth Blood Pressure Blood Pressure [Right Arm] Blood Pressure Mean Blood Pressure Mean [Right Arm] Pulse Oximetry 94 96 99 Pulse Oximetry [Exercises] Pulse Oximetry [Recovery] Pulse Oximetry [Resting] Oxygen Delivery Method Room Air Room Air Room Air Sepsis Recent Fever Within 48 Hours Sepsis New/Unexplained Change in Mental Status Sepsis Action Taken by Nursing 09/28/21 23:30 09/28/21 23:31 09/29/21 00:00 Temperature Temperature Source Pulse Rate 124 H 122 H Pulse Rate [Apical] 130 H Pulse Rate from SpO2 Sensor 124 H 123 H Respiratory Rate 14 22 Respiratory Effort / Characteristics Respiratory Depth Blood Pressure Blood Pressure [Right Arm] Blood Pressure Mean Blood Pressure Mean [Right Arm] Pulse Oximetry 95 98 94 Pulse Oximetry [Exercises] Pulse Oximetry [Recovery] Pulse Oximetry [Resting] Oxygen Delivery Method Room Air Room Air Sepsis Recent Fever Within 48 Hours Sepsis New/Unexplained Change in Mental Status Sepsis Action Taken by Nursing 09/29/21 00:30 09/29/21 01:00 09/29/21 01:15 Temperature Temperature Source Pulse Rate 119 H 115 H Pulse Rate [Apical] 113 H Pulse Rate from SpO2 Sensor 119 H 115 H Respiratory Rate 21 21 Respiratory Effort / Characteristics Respiratory Depth Blood Pressure Blood Pressure [Right Arm] Blood Pressure Mean Blood Pressure Mean [Right Arm] Pulse Oximetry 94 96 95 Pulse Oximetry [Exercises] Pulse Oximetry [Recovery] Pulse Oximetry [Resting] Oxygen Delivery Method Room Air Sepsis Recent Fever Within 48 Hours Sepsis New/Unexplained Change in Mental Status Sepsis Action Taken by Nursing 09/29/21 01:30 09/29/21 02:05 Temperature Temperature Source Pulse Rate 114 H Pulse Rate [Apical] Pulse Rate from SpO2 Sensor 114 H Respiratory Rate 24 Respiratory Effort / Characteristics Respiratory Depth Blood Pressure Blood Pressure [Right Arm] Blood Pressure Mean Blood Pressure Mean [Right Arm] Pulse Oximetry 96 Pulse Oximetry [Exercises] 91 Pulse Oximetry [Recovery] 95 Pulse Oximetry [Resting] 95 Oxygen Delivery Method Room Air Sepsis Recent Fever Within 48 Hours Sepsis New/Unexplained Change in Mental Status Sepsis Action Taken by Nursing Laboratory Data Result diagrams: 09/28/21 20:07 09/28/21 20:07 Lab Results 09/28/21 09/28/21 09/28/21 Range/Units 20:07 20:07 20:48 WBC 5.41 (4.8-10.8) K/uL RBC 4.52 (4.2-5.4) M/uL Hgb 13.2 (12.0-16.0) g/dL Hct 40.4 (37-47) % MCV 89.4 (80-100) fL MCH 29.2 (25-34) pg MCHC 32.7 (32-36) g/dL RDW Std Deviation 47.7 H (36.4-46.3) fL RDW Coeff of Krystal 14.6 H (11.5-14.5) % Plt Count 230 (130-400) K/uL MPV 10.6 H (7.4-10.4) fL Immature Gran % (Auto) 0.2 % Neut % (Auto) 64.7 % Lymph % (Auto) 20.7 % Lipscomb % (Auto) 9.4 % Eos % (Auto) 4.8 % Baso % (Auto) 0.2 % Neut # (Auto) 3.50 (1.4-6.5) K/uL Lymph # (Auto) 1.12 L (1.2-3.4) K/uL Lipscomb # (Auto) 0.51 (0.11-0.59) K/uL Eos # (Auto) 0.26 (0-0.5) K/uL Baso # (Auto) 0.01 (0-0.2) K/uL Immature Gran # (Auto) 0.01 (0.00-0.02) K/uL D-Dimer 280 (0-500) ug/L FEU Sodium 139 (136-145) mmol/L Potassium 3.5 (3.5-5.1) mmol/L Chloride 106 (98-107) mmol/L Carbon Dioxide 24 (21-32) mmol/L Anion Gap 9.0 (3-11) BUN 12 (7-18) mg/dl Creatinine 1.14 (0.6-1.2) mg/dl Est Cr Clr Drug Dosing 64.6 ml/min Est GFR ( Amer) 61.4 ml/min Est GFR (Non-Af Amer) 53.0 ml/min BUN/Creatinine Ratio 10.1 (10-20) Glucose 90 (70-99) mg/dl Calcium 8.6 (8.5-10.1) mg/dl Troponin I < 0.015 (0-0.045) ng/ml COVID-19 Eval Order SARS-CoV-2 (PCR) (Negative) 11/13/21 11/13/21 Range/Units 20:54 20:54 WBC (4.8-10.8) K/uL RBC (4.2-5.4) M/uL Hgb (12.0-16.0) g/dL Hct (37-47) % MCV (80-100) fL MCH (25-34) pg MCHC (32-36) g/dL RDW Std Deviation (36.4-46.3) fL RDW Coeff of Krystal (11.5-14.5) % Plt Count (130-400) K/uL MPV (7.4-10.4) fL Immature Gran % (Auto) % Neut % (Auto) % Lymph % (Auto) % Lipscomb % (Auto) % Eos % (Auto) % Baso % (Auto) % Neut # (Auto) (1.4-6.5) K/uL Lymph # (Auto) (1.2-3.4) K/uL Lipscomb # (Auto) (0.11-0.59) K/uL Eos # (Auto) (0-0.5) K/uL Baso # (Auto) (0-0.2) K/uL Immature Gran # (Auto) (0.00-0.02) K/uL D-Dimer (0-500) ug/L FEU Sodium (136-145) mmol/L Potassium (3.5-5.1) mmol/L Chloride (98-107) mmol/L Carbon Dioxide (21-32) mmol/L Anion Gap (3-11) BUN (7-18) mg/dl Creatinine (0.6-1.2) mg/dl Est Cr Clr Drug Dosing ml/min Est GFR ( Amer) ml/min Est GFR (Non-Af Amer) ml/min BUN/Creatinine Ratio (10-20) Glucose (70-99) mg/dl Calcium (8.5-10.1) mg/dl Troponin I (0-0.045) ng/ml COVID-19 Eval Order Covid19 at [facility] SARS-CoV-2 (PCR) POSITIVE A* (Negative) Administered Medications Discontinued Medications Acetaminophen (Acetaminophen 500 Mg Tab) 1,000 mg PO NOW STA Stop: 09/28/21 22:11 Last Admin: 09/28/21 23:12 Dose: 1,000 mg Documented by: [id number] Albuterol (Albut/Ipratrop 3mg/0.5mg Neb 3 Ml Vial) 3 ml NEB NOW STA Stop: 09/28/21 20:20 Last Admin: 09/28/21 21:33 Dose: 3 ml Documented by: [id number] Albuterol (Albut/Ipratrop 3mg/0.5mg Neb 3 Ml Vial) 3 ml NEB NOW STA Stop: 09/28/21 22:43 Last Admin: 09/28/21 23:13 Dose: 3 ml Documented by: [id number] Dexamethasone Sodium Phosphate (DexamethasonePf 10 Mg/Ml Vial) 10 mg IV NOW ONE Stop: 09/28/21 20:20 Last Admin: 09/28/21 21:09 Dose: 10 mg Documented by: [id number] Magnesium Sulfate/Dextrose (Magnesium Sulfate / D5w) 1 gm in 100 mls @ 100 mls/hr IV NOW STA Stop: 09/28/21 23:08 Last Infusion: 09/29/21 01:41 Dose: 0 mls/hr Documented by: [id number] Admin: 09/28/21 23:12 Dose: 100 mls/hr Documented by: [id number] Ioversol (Optiray 320 125ml) 120 ml IV ONCE ONE Stop: 09/29/21 02:02 Last Admin: 09/29/21 02:02 Dose: 120 ml Documented by: [id number] Imaging Data Radiologist's Impression: Chest X-Ray 09/28/21 19:53 XR chest 1V portable CLINICAL HISTORY: dyspnea TECHNIQUE: Single frontal radiograph of the chest was obtained. Comparison: Comparison is made to chest one view 12/12/2020 FINDINGS: No lines and tubes are seen. The cardiomediastinal silhouette is normal. The lungs are clear. No evidence of pleural effusion or pneumothorax. IMPRESSION: No acute chest disease. ACT 112: Negative or not required by law. Electronically signed by: Irwin Underwood M.D. 09/28/2021 8:33 PM Discharge Plan Visit Data Chief Complaint: Asthma Stated Complaint: ASTHMA ATTACK ED Provider: Troy Grove Discharge Problem: COVID-19, Shortness of breath, Tachycardia, History of asthma Forms Stand Alone Forms: My [facility] Prescriptions Prescriptions: No Action albuterol sulfate 90 mcg/actuation HFA aerosol inhaler 2 inh inhalation Q4H PRN (Reason: shortness of breath or wheezing) Qty: 18 RF: 5 ipratropium-albuterol 0.5 mg-3 mg(2.5 mg base)/3 mL solution for nebulization 3 ml inhalation QID PRN (Reason: shortness of breath or wheezing) Qty: 360 RF: 3 clopidogrel 75 mg tablet 75 mg PO QAM Qty: 90 RF: 3 Dupixent Syringe 300 mg/2 mL syringe 300 mg SQ Q14D Qty: 4 RF: 11 aspirin 81 mg tablet,delayed release (DR/EC) 81 mg PO DAILY RF: 0 diltiazem HCl 240 mg capsule,extended release 24hr 240 mg PO DAILY Qty: 30 RF: 11 atorvastatin 80 mg tablet 80 mg PO DAILY Qty: 30 RF: 11 montelukast 10 mg tablet 10 mg PO DAILY Qty: 30 RF: 11 budesonide-formoterol [Symbicort] 160-4.5 mcg/actuation HFA aerosol inhaler 2 puff inhalation DAILY RF: 0 nitroglycerin 0.4 mg tablet, sublingual 0.4 mg SL Q5M PRN (Reason: chest pain) Qty: 20 RF: 5 Referrals Referrals: Uma Ocampo [Primary Care Provider] -
[2021-09-28] MEDS ORDERED: MAGNESIUM SULFATE / D5W 1 GM/100 ML BAG IV STA (22:09)
[2021-09-28] MEDS ORDERED: ACETAMINOPHEN 500 MG TAB PO STA (22:10)
[2021-09-29] MEDS ORDERED: OPTIRAY 320 125ml IV ONE (02:01)
--- NOTE | 2021-09-29 02:09 | History & Physical Report ---
Date of Service September 29, 2021 Assessment & Plan (1) COVID-19: Plan: 56 yo F with PMH asthma, CAD s/p stent, HTN, GERD, HLD, anxiety, h/o carcinoid tumor admitted for asthma exacerbation due to COVID19. Asthma Exacerbation - No resting hypoxia, exertional hypoxia present - O2 PRN, goal sat >90% - duonebs QID - continue steroid inhaler daily - IV steroids per COVID tx - cont montelukast COVID19 - within first 48 hours of symptoms - monoclonal antibody candidate - remdesivir daily - daily dexamethasone - bid lovenox dosing - CTA chest negative for PE Tachycardia - up to 146 in ER, persistent - sinus tach - TTE to eval to covid myocarditis/pericarditis - troponin negative - ESR, PCR pending CAD s/p stent - cont statin, aspirin, plavix HTN - cont diltiazem DVT ppx: lovenox bid FEN/GI: heart healthy diet, Bowel regimen: prn miralax Code Status: full code Dispo: med/tele (2) Severe persistent asthma: (3) Allergic rhinitis: (4) Tachycardia: (5) S/P coronary artery stent placement: (6) HTN (hypertension), benign: (7) Hyperlipidemia: (8) GERD (gastroesophageal reflux disease): (9) Anxiety: (10) Asthma exacerbation: History of Present Illness Primary Care Provider: Uma Ocampo 56 F asthma, CAD s/p stent, HTN, GERD, HLD, anxiety, h/o carcinoid tumor in ER for acute shortness of breath worsening over last 24-48 hours. States she felt increase trouble breathing, chest discomfort. Continued taking her inhalers and was using her nebulizer every 2 hours without improvement. Denies any fevers, chills, cough. Says her daughter who lives with her is COVID19 positive. Yulisa is vaccinated x2 for COVID with moderna. Allergies Allergy/AdvReac Type Severity Reaction Status Date / Time No Known Drug Allergies Allergy Unknown Verified 09/28/21 20:53 Home Medications Medication Instructions Recorded Confirmed Type albuterol sulfate 90 mcg/actuation 2 inh INHALATION Q4H PRN #18 g 09/06/20 09/28/21 Rx aerosol inhaler ipratropium 0.5 mg-albuterol 3 mg 3 ml INHALATION QID PRN #360 ml 10/29/20 09/28/21 Rx (2.5 mg base)/3 mL nebulization soln nitroglycerin 0.4 mg sublingual 0.4 mg SL Q5M PRN #20 tab 11/29/20 09/28/21 Rx tablet aspirin 81 mg tablet,delayed 81 mg PO DAILY tab 01/11/21 09/28/21 History release atorvastatin 80 mg tablet 80 mg PO DAILY #30 tab 01/11/21 09/28/21 Rx diltiazem HCl 240 mg 240 mg PO DAILY #30 cap 01/11/21 09/28/21 Rx capsule,extended release 24 hr clopidogrel 75 mg tablet 75 mg PO QAM #90 tab 02/25/21 09/28/21 Rx dupilumab 300 mg/2 mL subcutaneous 300 mg SQ Q14D #4 ml 04/18/21 09/28/21 Rx syringe (Dupixent) budesonide-formoterol HFA 160 2 puff INHALATION DAILY g 06/12/21 09/28/21 History mcg-4.5 mcg/actuation aerosol inhaler (Symbicort) montelukast 10 mg tablet 10 mg PO DAILY #30 tab 09/06/21 09/28/21 Rx dexamethasone 4 mg tablet 6 mg PO DAILY 5 Days #8 tab 09/29/21 Rx Past Med/Surg History Medical History Anxiety CAD (coronary artery disease) Carcinoid tumor GERD (gastroesophageal reflux disease) HTN (hypertension), benign Hyperlipidemia Hypokalemia Leukopenia Non-STEMI (non-ST elevated myocardial infarction) Sjogrens syndrome Tachycardia Surgical History History of appendectomy History of bilateral breast reduction surgery History of hemicolectomy S/P coronary artery stent placement Family History Other Family history non-contributory Social History Smoking Status: Never smoker Second Hand Exposure: No; Do You Dip or Chew Tobacco: No; Tobacco Cessation Education Requested by Patient: No Hx Alcohol Use: No Hx Substance Use: No Preferred Language: Malay Communication Ability: Effective Client Strategist Required: No Beliefs That Will Affect Care: Evangelical marital status: / Current Living Situation: Family Current Living Situation Comment: Lives at home wiht daughter. current occupational status: employed current occupation: [employer] Other Information That Helps Us Care for You: No Feels Safe at Home: Yes Safety Concerns: Feels Safe At This Time Assistive Devices: Glasses Review of Systems Constitutional: no fever, no chills, no sweats and no fatigue Eyes: no blind spots and no discharge Ear, Nose, Mouth, Throat: no hearing loss and no nasal congestion Respiratory: + chest congestion and + dyspnea; no cough, no pain on inspiratio n and no wheezing Cardiovascular: no chest pain, no dyspnea on exertion and no edema Gastrointestinal: no abdominal pain, no nausea, no vomiting, no constipation, no diarrhea/loose stools and no blood in stools Genitourinary: no dysuria Musculoskeletal: no joint pain and no myalgia Neurologic: no tingling, no numbness and no headache(s) Endocrine: no fatigue Physical Exam Physical Exam: Constitutional: in no apparent distress, sitting comfortably in bed. Eyes: EOMI, pupils equal and reactive bilaterally, no scleral icterus Cardiac: tachycardic, regular rate, no murmurs, gallops or rubs. Normal S1, S2 Pulm: CTA BL, no wheezes, rhonchi, crackles or rubs, moving air well throughout both lungs Abd: soft, nontender, nondistended, normal bowel sounds, no rebound or guarding Extremities: 2+ peripheral pulses, no edema Neuro: no focal deficits, moving all 4 limbs, A&Ox3 Results & Data Results & Data ([facility]) Vital Signs (Past 12 Hours) Vital Signs Temp Pulse Pulse Resp BP BP Pulse Ox 09/29/21 02:05 09/29/21 01:30 114 H 24 96 09/29/21 01:15 113 H 95 09/29/21 01:00 115 H 21 96 09/29/21 00:30 119 H 21 94 09/29/21 00:00 122 H 22 94 09/28/21 23:31 130 H 98 09/28/21 23:30 124 H 14 95 09/28/21 23:05 122 H 20 99 09/28/21 23:00 120 H 13 96 09/28/21 22:30 120 H 14 94 09/28/21 22:00 123 H 14 95 09/28/21 21:52 122 H 20 165/99 H 95 09/28/21 21:35 110 H 14 96 09/28/21 21:30 114 H 13 95 09/28/21 21:09 97 09/28/21 21:07 123 H 11 L 96 09/28/21 20:46 131 H 96 09/28/21 20:45 131 H 96 09/28/21 19:45 37.2 C 146 H 18 173/104 H 97 Pulse Ox Pulse Ox Pulse Ox 09/29/21 02:05 91 95 95 09/29/21 01:30 09/29/21 01:15 09/29/21 01:00 09/29/21 00:30 09/29/21 00:00 09/28/21 23:31 09/28/21 23:30 09/28/21 23:05 09/28/21 23:00 09/28/21 22:30 09/28/21 22:00 09/28/21 21:52 09/28/21 21:35 09/28/21 21:30 09/28/21 21:09 09/28/21 21:07 09/28/21 20:46 09/28/21 20:45 09/28/21 19:45 Laboratory Results Laboratory Results WBC 5.41 K/uL (4.8-10.8) 09/28/21 20:07 RBC 4.52 M/uL (4.2-5.4) 09/28/21 20:07 Hgb 13.2 g/dL (12.0-16.0) 09/28/21 20:07 Hct 40.4 % (37-47) 09/28/21 20:07 MCV 89.4 fL (80-100) 09/28/21 20:07 MCH 29.2 pg (25-34) 09/28/21 20:07 MCHC 32.7 g/dL (32-36) 09/28/21 20:07 RDW Std Deviation 47.7 fL (36.4-46.3) H 09/28/21 20:07 RDW Coeff of Krystal 14.6 % (11.5-14.5) H 09/28/21 20:07 Plt Count 230 K/uL (130-400) 09/28/21 20:07 MPV 10.6 fL (7.4-10.4) H 09/28/21 20:07 Immature Gran % (Auto) 0.2 % 09/28/21 20:07 Neut % (Auto) 64.7 % 09/28/21 20:07 Lymph % (Auto) 20.7 % 09/28/21 20:07 Wirt % (Auto) 9.4 % 09/28/21 20:07 Eos % (Auto) 4.8 % 09/28/21 20:07 Baso % (Auto) 0.2 % 09/28/21 20:07 Neut # (Auto) 3.50 K/uL (1.4-6.5) 09/28/21 20:07 Lymph # (Auto) 1.12 K/uL (1.2-3.4) L 09/28/21 20:07 Wirt # (Auto) 0.51 K/uL (0.11-0.59) 09/28/21 20:07 Eos # (Auto) 0.26 K/uL (0-0.5) 09/28/21 20:07 Baso # (Auto) 0.01 K/uL (0-0.2) 09/28/21 20:07 Immature Gran # (Auto) 0.01 K/uL (0.00-0.02) 09/28/21 20:07 D-Dimer 280 ug/L FEU (0-500) 09/28/21 20:48 Sodium 139 mmol/L (136-145) 09/28/21 20:07 Potassium 3.5 mmol/L (3.5-5.1) 09/28/21 20:07 Chloride 106 mmol/L (98-107) 09/28/21 20:07 Carbon Dioxide 24 mmol/L (21-32) 09/28/21 20:07 Anion Gap 9.0 (3-11) 09/28/21 20:07 BUN 12 mg/dl (7-18) 09/28/21 20:07 Creatinine 1.14 mg/dl (0.6-1.2) 09/28/21 20:07 Est Cr Clr Drug Dosing 64.6 ml/min 09/28/21 20:07 Est GFR ( Amer) 61.4 ml/min 09/28/21 20:07 Est GFR (Non-Af Amer) 53.0 ml/min 09/28/21 20:07 BUN/Creatinine Ratio 10.1 (10-20) 09/28/21 20:07 Glucose 90 mg/dl (70-99) 09/28/21 20:07 Calcium 8.6 mg/dl (8.5-10.1) 09/28/21 20:07 Troponin I < 0.015 ng/ml (0-0.045) 09/28/21 20:07 COVID-19 Eval Order Covid19 at [facility] 09/28/21 20:54 SARS-CoV-2 (PCR) POSITIVE (Negative) A* 09/28/21 20:54 Impressions Chest X-Ray 09/28/21 19:53 XR chest 1V portable CLINICAL HISTORY: dyspnea TECHNIQUE: Single frontal radiograph of the chest was obtained. Comparison: Comparison is made to chest one view 12/12/2020 FINDINGS: No lines and tubes are seen. The cardiomediastinal silhouette is normal. The lungs are clear. No evidence of pleural effusion or pneumothorax. IMPRESSION: No acute chest disease. ACT 112: Negative or not required by law. Electronically signed by: Irwin Underwood M.D. 09/28/2021 8:33 PM Supervising Physician Co-Signing Physician Notes Attending addendum: I have physically seen this patient, have supervised the medical residents activities, and agree with the H&P unless as otherwise noted. Assessment and Plan: COVID-19 pneumonia with hypoxia/asthma exacerbation- Dexamethasone 6 mg IV daily Remdesivir IV per protocol Lovenox subcu twice daily CTA chest negative for PE Guaifenesin extended release 1200 mg p.o. twice daily Vitamin D 1000 international units p.o. daily Zinc sulfate 25 mg p.o. daily Duonebs every 4 hours while awake and every 2 hours when necessary. Continue montelukast Tachycardia/CAD/stent history/hypertension- Heart rate peaked in the 140s in the ED, and reduced to 120s with hydration Continue aspirin, clopidogrel, diltiazem NPO Continue IV fluids The patient will be admitted to telemetry for serial cardiac enzymes, serial EK G's, cardiac rhythm monitoring and a 2-D echocardiogram with Dopplers. Concerning for possible COVID-19 myocarditis/pericarditis Consult cardiology Remaining orders and notations as noted Resident Activity Tracking Resident Involvement: Resident Care Provided Care Provided: Adult [facility]
[2021-09-29] MEDS ORDERED: REMDESIVIR 200 MG in SODIUM CHLORIDE 0.9% 210 ML IV STA (03:08)
[2021-09-29] MEDS ORDERED: SODIUM CHLORIDE 0.9% 10ML FLUSH IV SCH (03:55)
[2021-09-29 06:43] LABS: Albumin Level 3.5 gm/dl (3.4-5.0); BUN Creatinine Ratio 12.3 (10-20); Calcium 8.7 mg/dl (8.5-10.1); Creatinine Clr Calc Pharmacy 73.6 ml/min; Est GFR (African American) 71.9 ml/min; Est GFR (Non-African American) 62.1 ml/min
[2021-09-29 06:46] LABS: Albumin Globulin Ratio 0.9 (0.9-2); Bilirubin,Total 0.4 mg/dl (0.2-1); C Reactive Protein 1.52 mg/dl (0-0.29); Globulin 3.7 gm/dl (2.5-4.0); Total Protein 7.2 gm/dl (6.4-8.2)
[2021-09-29] MEDS: ALBUT/IPRATROP 3MG/0.5MG NEB 3 ML VIAL NEB SCH ×3 (07:35→15:04)
--- NOTE | 2021-09-29 08:08 | CT Scan Report ---
CT angio chest PE protocol CLINICAL HISTORY: SOB, +COVID . Evaluate for pulmonary embolus COMPARISON STUDY: Portable chest from 09/28/2021 CT DOSE: 358.94 mGy.cm TECHNIQUE: CT Angio of the chest was performed.followed by image post processing with coronal, and s agittal MIP reformats. Contrast Volume: Isovue 320, 120 ml FINDINGS: Vasculature: There is homogeneous perfusion of the pulmonary vasculature bilaterally. No intraluminal filling defects or evidence for pulmonary embolus is seen. Airway: The airway is clear. No endobronchial lesion is identified. Lungs: Minimal groundglass opacities are present within the posterior segment of the right upper lobe and at the right lung base characteristic of a viral type pneumonitis and probable early Covid 19 pn eumonia. The lungs are otherwise clear of confluent alveolar opacities, air bronchograms or pulmonary nodules. Pleura: There is no evidence for pleural effusion. There is no evidence for pneumothorax. Mediastinum: There is no evidence for pathologic adenopathy. The heart size is within normal limits. The thoracic aorta is within normal limits. There is no evidence for pericardial effusion. Upper abdomen:The adrenal glands are normal bilaterally. Osseous structures: There is no acute osseous pathology. Impression: 1. No CTA evidence for pulmonary embolus. 2. Minimal groundglass opacities are present within the posterior segment of the right upper lobe and at the right lung base characteristic of a viral type pneumonitis and probable early Covid 19 pneumo alem. ACT 112: Negative or not required by law. Electronically signed by: Jeovany Freire M.D. 09/29/2021 8:07 AM
[2021-09-29] MEDS ORDERED: ASPIRIN 81 MG ECTAB PO SCH (09:00)
[2021-09-29] MEDS ORDERED: FLUTICASONE/VILANTEROL 100/25MCG 14 PUFFS/INHALER INH SCH (09:00)
[2021-09-29] MEDS ORDERED: dilTIAZem HCL 240 MG CAPCR PO SCH (09:00)
[2021-09-29] MEDS ORDERED: ATORVASTATIN 40 MG TAB PO SCH (09:00)
[2021-09-29] MEDS ORDERED: ENOXAPARIN INJ 40 MG/0.4 ML SYR SQ SCH (09:00)
[2021-09-29] MEDS ORDERED: dexAMETHasone 6 MG in SYRINGE 0 ML IV SCH (09:00)
[2021-09-29] MEDS ORDERED: CLOPIDOGREL BISULFATE 75 MG TAB PO SCH (09:00)
--- NOTE | 2021-09-29 15:44 | Discharge Summary ---
Date of Service September 29, 2021 Admission HPI Per Admitting Provider 56 F asthma, CAD s/p stent, HTN, GERD, HLD, anxiety, h/o carcinoid tumor in ER for acute shortness of breath worsening over last 24-48 hours. States she felt increase trouble breathing, chest discomfort. Continued taking her inhalers and was using her nebulizer every 2 hours without improvement. Denies any fevers, chills, cough. Says her daughter who lives with her is COVID19 positive. Yulisa is vaccinated x2 for COVID with moderna. Principal Diagnosis COVID 19 infection Asthma exacerbation Sinus tachycardia Discharge Exam General: well developed, well nourished, no acute distress, comfortable Neck: supple, trachea midline, normal thyroid Lungs: clear to auscultation bilaterally, no wheezing, normal respiratory effort, no accessory muscle use, no distress Heart: tachycardic, S1 and S2, no murmur, peripheral pulses normal, capillary refill normal, no edema Abdomen: soft, NT, ND, + BS, no hepatomegaly, normal to percussion Extremities: normal in appearance, no cyanosis, no petechiae, strength is 5/5 bilaterally Neuro: awake, cooperative, moves all extremities, no focal motor deficits, CN II-XII intact, sensation in extremities intact, normal speech Skin: warm, dry, no rash, normal turgor Psych: Awake, alert oriented x 3, euthymic affect Discharge Data Allergies Allergy/AdvReac Type Severity Reaction Status Date / Time No Known Drug Allergies Allergy Unknown Verified 09/28/21 20:53 Consultations 09/29/21 02:47 ED Decision to Admit Stat Ordered Studies 09/29/21 01:30 CT angio chest PE protocol Urgent Hospital Course (1) COVID-19: 56 yo F with PMH asthma, CAD s/p stent, HTN, GERD, HLD, anxiety, h/o c arcinoid tumor admitted for asthma exacerbation due to COVID19. Asthma Exacerbation - saturations >95% while here - duonebs QID and q2 PRN - lungs clear, no wheezing, no distress - will discharge on dexamethasone 6mg daily x 5 more days, more for asthma as opposed to COVID 19 - patient feels comfortable going home, stable all day today COVID19 - within first 48 hours of symptoms, her daughter gave it to her, known sick contact and accurate time line - made a referral to monoclonal antibody treatment clinic - unsure if being on dupilumab is a contra-indication - remdesivir x 1 dose, but not hypoxic so does not need to stay for Remdesivir - dexamethasone 6mg IV, will send home on 5 days but this is more for asthma exacerbation - CTA chest negative for PE, shows very small area of pneumonitis, likely early COVID pneumonia Tachycardia - up to 146 in ER, persistent - sinus tach, likely due to numerous nebulizer treatments prior to coming to ED - HR in the 90-100's while here, no chest pain, no distress CAD s/p stent - cont statin, aspirin, plavix HTN - cont diltiazem DVT ppx: lovenox bid FEN/GI: heart healthy diet, Bowel regimen: prn miralax Code Status: full code Dispo: med/tele (2) Severe persistent asthma: (3) Allergic rhinitis: (4) Tachycardia: (5) S/P coronary artery stent placement: (6) HTN (hypertension), benign: (7) Hyperlipidemia: (8) GERD (gastroesophageal reflux disease): (9) Anxiety: (10) Asthma exacerbation: Total Time Total Time Spent Total Time Spent (In Minutes): 35 minutes Total Time Includes: Examination of the Patient, Discharge Planning, Medication Reconciliation, Communication With Other Providers (spoke with pharmacy about potential monoclonal treatment) and Other (10 minutes completing monoclonal ab referral form) Discharge Plan Discharge Items Patient Disposition: Home - Self-Care Reason For Visit: TACHYCARDIA, COVID19 Discharge Diagnosis: COVID 19 infection, very mild pneumonitis changes on CT chest Asthma exacerbation Condition on Discharge: Good Goals: complete a few days of dexamethasone follow up for possible monoclonal antibody treatment Activity: Resume your previous activity Driving/Machine Use: No limitations Weightbearing: Full weightbearing Non-emergency contact: Primary Care Provider Call non-emergency contact if: you have any medication questions Follow-up/Referrals: Uma cOampo [Primary Care Provider] - (one week) Diet: Heart Healthy Addtl Attending Provider Instructions: Medications: - DEXAMETHASONE: 6mg daily for 5 more days, for asthma, less for COVID as you are not hypoxic COVID 19 infection, very mild pneumonitis, likely early in course no hypoxia so you can be discharged to home continue dexamethasone to help with asthma continue nebulizers, can use four times a day, every 2 hours only if needed as we discussed, I submitted a referral for the monoclonal antibody treatment unsure if the dupilumab will be a contra-indication, they should call your cell phone with a determination recommend you get a finger pulse oximeter to measure oxygen levels, should be > 90%, if your oxygen levels are dropping into the 80's then return to the ED for evaluation I anticipate that you will do fine as you are vaccinated, should limit severe illness Pending Studies at Discharge: No Stand-Alone Forms: My [facility], Smoking Cessation Medications and DC Order Prescriptions: New dexamethasone 4 mg tablet 6 mg PO DAILY 5 Days Qty: 8 RF: 0 Continued albuterol sulfate 90 mcg/actuation HFA aerosol inhaler 2 inh inhalation Q4H PRN (Reason: shortness of breath or wheezing) Qty: 18 RF: 5 ipratropium-albuterol 0.5 mg-3 mg(2.5 mg base)/3 mL solution for nebulization 3 ml inhalation QID PRN (Reason: shortness of breath or wheezing) Qty: 360 RF: 3 clopidogrel 75 mg tablet 75 mg PO QAM Qty: 90 RF: 3 Dupixent Syringe 300 mg/2 mL syringe 300 mg SQ Q14D Qty: 4 RF: 11 aspirin 81 mg tablet,delayed release (DR/EC) 81 mg PO DAILY RF: 0 diltiazem HCl 240 mg capsule,extended release 24hr 240 mg PO DAILY Qty: 30 RF: 11 atorvastatin 80 mg tablet 80 mg PO DAILY Qty: 30 RF: 11 montelukast 10 mg tablet 10 mg PO DAILY Qty: 30 RF: 11 budesonide-formoterol [Symbicort] 160-4.5 mcg/actuation HFA aerosol inhaler 2 puff inhalation DAILY RF: 0 nitroglycerin 0.4 mg tablet, sublingual 0.4 mg SL Q5M PRN (Reason: chest pain) Qty: 20 RF: 5 Discharge Orders: Discharge Order (Routine); Ordered 09/29/21 Ordered By: Irwin Ge Admission Data Admit Date/Time: 09/29/21 03:54 Attending Provider: Irwin Ge Admit Provider: Ashley Durham Primary Care Provider: Uma Ocampo Other Providers: Drake Dunn Other Interventions: Discharge Summary Assessment (RN) Last Done: 09/29/21 15:50 Coding Level of Care Code D/C DAY MANAGEMENT >30 MINS Diagnoses COVID-19 U07.1 Severe persistent asthma J45.50 Allergic rhinitis J30.9 Tachycardia R00.0 S/P coronary artery stent placement Z95.5 HTN (hypertension), benign I10 Hyperlipidemia E78.5 GERD (gastroesophageal reflux disease) K21.9 Anxiety F41.9 Asthma exacerbation J45.901
--- NOTE | 2021-09-29 20:27 | Billing Data ---
Date of Service September 29, 2021 Coding Level of Care Code 98150 Initial Inpt Care Lvl 3
[2021-09-29] MEDS ORDERED: MONTELUKAST SODIUM 10 MG TABLET PO SCH (21:00)
--- NOTE | 2021-09-29 22:52 | XCELERA ---
[id number]
--- NOTE | 2021-09-29 23:29 | Electrocardiogram Report ---
Test Reason : Blood Pressure : / mmHG Vent. Rate : 127 BPM Atrial Rate : 127 BPM P-R Int : 172 ms QRS Dur : 078 ms QT Int : 282 ms P-R-T Axes : 069 039 055 degrees QTc Int : 409 ms Sinus tachycardia Possible Left atrial enlargement Borderline ECG When compared with ECG of 12-DEC-2020 03:56, No significant change was found Confirmed by Reagan Montejo ([id number]) on 09/29/2021 11:28:26 PM Referred By: REFERRED SELF Confirmed By:Reagan Montejo
--- NOTE | 2021-09-29 23:29 | Electrocardiogram Report ---
Test Reason : Blood Pressure : / mmHG Vent. Rate : 126 BPM Atrial Rate : 126 BPM P-R Int : 166 ms QRS Dur : 080 ms QT Int : 292 ms P-R-T Axes : 069 034 045 degrees QTc Int : 422 ms Sinus tachycardia Possible Left atrial enlargement Borderline ECG When compared with ECG of 28-SEP-2021 20:11, No significant change was found Confirmed by Reagan Montejo ([id number]) on 09/29/2021 11:29:15 PM Referred By: REFERRED SELF Confirmed By:Reagan Montejo
[2021-09-30] MEDS ORDERED: REMDESIVIR 100 MG in SODIUM CHLORIDE 0.9% 230 ML IV SCH (12:00)
== END 2021-09-29 16:50 | disposition home or self-care (01) ==
LOC: ED 19:44 → SUATTDRO 09-29 03:54 → INTOOBSV 09-29 03:54 → 2S 09-29 03:54